=== PATIENT | male | born 1945 | race American Indian/Alaskan Native ===

== ENCOUNTER 2018-03-09 06:26 | Emergency (ER) | payer MEDICARE ==
--- NOTE | 2018-03-09 07:02 | Emergency Department Report ---
ED Male HPI - General Chief complaint: Urogenital-Male Stated complaint: UNABLE TO URINATE Time Seen by Provider: 03/09/18 06:55 Source: patient Mode of arrival: Ambulatory Limitations: No Limitations - History of Present Illness Initial comments: Patient is a 72-year-old male that presents emergency room with difficulty urinating. Patient states that he's not been able to urinate for the past 24 hours. Patient states that he had a catheter removed on Tuesday. Patient states the pain is 10. Patient states the pain is in the suprapubic bladder region. Patient states had this before. Patient denies fever and chills. Patient denies nausea vomiting. Patient states he has urologist. Patient states she started taking Flomax. -: Sudden Location: abdomen Radiation: none Severity: severe Severity scale (0 -10): 10 Quality: stabbing Consistency: constant Improves with: urination, rest Worsens with: palpation indwelling catheter urinary retention. denies: discharge, swelling, mass, rash, blood in urine, dysuria, fever, nausea/vomiting, incontinence - Related Data Home Medications Medication Instructions Recorded Confirmed Last Taken Lipitor 10 mg PO QDAY 05/14/14 02/07/18 05/14/14 06:00 Previous Rx's Medication Instructions Recorded Last Taken Type Tamsulosin [Flomax] 0.8 mg PO QDAY #60 cap 06/21/14 Unknown Rx amLODIPine [Norvasc] 10 mg PO QDAY #30 tablet 06/21/14 02/06/17 Rx Acetaminophen [Acetaminophen TAB] 650 mg PO Q4H PRN #15 tablet 02/08/18 Unknown Rx Ciprofloxacin HCl [Ciprofloxacin 500 mg PO BID #10 tab 02/08/18 Unknown Rx TAB] Famotidine [Pepcid] 20 mg PO BID #7 tablet 02/08/18 Unknown Rx Sulfamethoxazole/Trimethoprim 1 each PO BID 14 Days #28 tablet 03/09/18 Unknown Rx [Bactrim Ds Tablet] Allergies Allergy/AdvReac Type Severity Reaction Status Date / Time No Known Allergies Allergy Verified 05/14/14 12:19 ED Review of Systems ROS: Stated complaint: UNABLE TO URINATE Other details as noted in HPI Constitutional: denies: chills, fever Eyes: denies: eye pain, eye discharge, vision change ENT: denies: ear pain, throat pain Respiratory: denies: cough, shortness of breath, wheezing Cardiovascular: denies: chest pain, palpitations Endocrine: no symptoms reported Gastrointestinal: denies: abdominal pain, nausea, diarrhea Genitourinary: denies: urgency, dysuria Musculoskeletal: denies: back pain, joint swelling, arthralgia Skin: denies: rash, lesions Neurological: denies: headache, weakness, paresthesias Psychiatric: denies: anxiety, depression Hematological/Lymphatic: denies: easy bleeding, easy bruising ED Past Medical Hx - Past Medical History Previous Medical History?: Yes Hx Hypertension: Yes Hx Heart Attack/AMI: No Hx Liver Disease: No Hx Renal Disease: Yes (ARF resolved) 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) Hx Seizures: No Hx Asthma: No Hx COPD: No Hx HIV: No Additional medical history: BPH - Surgical History Past Surgical History?: Yes Additional Surgical History: subrapubic catheter placement - Family History Family history: no significant - Social History Smoking Status: Never Smoker Substance Use Type: None - Medications Home Medications: Home Medications Medication Instructions Recorded Confirmed Last Taken Type Lipitor 10 mg PO QDAY 05/14/14 02/07/18 05/14/14 06:00 History Tamsulosin [Flomax] 0.8 mg PO QDAY #60 cap 06/21/14 02/07/18 Unknown Rx amLODIPine [Norvasc] 10 mg PO QDAY #30 tablet 06/21/14 02/07/18 02/06/17 Rx Acetaminophen [Acetaminophen TAB] 650 mg PO Q4H PRN #15 tablet 02/08/18 Unknown Rx Ciprofloxacin HCl [Ciprofloxacin 500 mg PO BID #10 tab 02/08/18 Unknown Rx TAB] Famotidine [Pepcid] 20 mg PO BID #7 tablet 02/08/18 Unknown Rx Sulfamethoxazole/Trimethoprim 1 each PO BID 14 Days #28 tablet 03/09/18 Unknown Rx [Bactrim Ds Tablet] ED Physical Exam - General Limitations: No Limitations General appearance: alert, in no apparent distress - Head Head exam: Present: atraumatic, normocephalic - Eye Eye exam: Present: normal appearance - ENT ENT exam: Present: mucous membranes moist - Neck Neck exam: Present: normal inspection - Respiratory Respiratory exam: Present: normal lung sounds bilaterally. Absent: respiratory distress - Cardiovascular Cardiovascular Exam: Present: regular rate, normal rhythm. Absent: systolic murmur, diastolic murmur, rubs, gallop - GI/Abdominal GI/Abdominal exam: Present: soft, tenderness (suprapubic tenderness and palpable bladder), normal bowel sounds - Rectal Rectal exam: Present: deferred - Extremities Exam Extremities exam: Present: normal inspection - Back Exam Back exam: Present: normal inspection - Neurological Exam Neurological exam: Present: alert, oriented X3 - Psychiatric Psychiatric exam: Present: normal affect, normal mood - Skin Skin exam: Present: warm, dry, intact, normal color. Absent: rash ED Course Vital Signs 03/09/18 03/09/18 06:39 09:59 Temperature 98.9 F Pulse Rate 112 H 102 H Respiratory 14 16 Rate Blood Pressure 130/81 Blood Pressure 131/73 [Right] O2 Sat by Pulse 100 100 Oximetry - Reevaluation(s) Reevaluation #1: Patient will have Carballo placed. Initial evaluation done. Findings consistent with urinary retention and a need for indwelling catheter 03/09/18 06:55 Nurses unable to pass a standard Carballo catheter due to enlarged prostate. We will order cystoscopy cart and try to place a smaller cath. The last time this happened the patient required urologic intervention from a urologist. See procedure note for coud placement. 03/09/18 08:25 Draining urine. Patient states his symptoms are improving. 03/09/18 08:55 Skull and all results with patient. Discussed discharge planning. Patient agrees with care and discharged. Patient to be discharged home with discharge instructions. Patient given discharge instructions 03/09/18 09:25 Patient is pain-free. No abdominal distention noted 03/09/18 10:14 Discussed discharge patient. Patient agrees with discharge. Patient was discharged home with Carballo. Patient given discharge instructions.patient given return to ER instructions the patient voiced understanding of instructions. 03/09/18 10:39 - Consultations Consultation #1: Dr. Montana paged 03/09/18 09:22 Dr. Montana paced again 03/09/18 10:14 Discussed case with patient's personal urologist. Dr. Montana states patient is good for discharge and he will have his office call him for an appointment. Dr. montana agrees with leaving Carballo in and antibiotic therapy. 03/09/18 10:38 - Penile Procedure Consent Obtained: verbal consent, written consent, emergent situation Time Out Performed: Yes Indication: other (Carballo placement with a coud) Procedural Sedation: No Sedation/Analgesia: none Complications: none Patient Tolerated Procedure: well Additional Comments: Patient is 72-year-old male presents to emergency room for urinary retention. Patient has enlarged prostate and already sees urologist. Patient recently had a Carballo catheter placed nurse's unable to pass standard Carballo catheter. Cystoscopy cart brought to the room. 12 Macedonian coud placed but catheter for blood clots. Unable to irrigate 12 Macedonian. 12 Macedonian was removed and 14 Macedonian coud past without problem. Urine flow noted. Procedure done under sterile conditions. Patient is catheter was already attached to a drainage bag. Blood noted in urine ED Medical Decision Making - Medical Decision Making She is a 17-year-old male that presents to emergency room for urinary retention and lower abdominal pain. Patient has a long history of BPH and urinary retention and Carballo catheter. Patient had a coud catheter placed. See procedure note. Patient given discharge instructions. Patient instructed to follow up with urologist. Patient to return to ER if condition worsens. Patient given antibiotics for UTI. Discussed treatment plan and discharged with patient's personal urologist. - Differential Diagnosis urinary retention. BPH. Prostatitis. UTI. Critical care attestation.: If time is entered above; I have spent that time in minutes in the direct care of this critically ill patient, excluding procedure time. ED Disposition Clinical Impression: Urinary retention BPH (benign prostatic hypertrophy) Qualifiers: Lower urinary tract symptom presence: symptoms present Lower urinary tract symptom detail: urinary retention Qualified Code(s): N40.1 - Benign prostatic hyperplasia with lower urinary tract symptoms UTI (urinary tract infection) Qualifiers: Urinary tract infection type: acute cystitis Hematuria presence: with hematuria Qualified Code(s): N30.01 - Acute cystitis with hematuria Disposition: TO HOME OR SELFCARE Is pt being admited?: No Does the pt Need Aspirin: No Condition: Stable Instructions: Urinary Retention in Men (ED), Urinary Tract Infection in Men (ED) Additional Instructions: Patient to follow-up with primary care in 2-3 days. Patient to follow up with urologist in 2-3 days. Patient to return to the ER if condition worsens. Patient to keep Carballo in until removed by PCP or urologist. Patient to increase water. Patient to rest. Patient to take meds as directed. Patient to take Tylenol when necessary for pain Prescriptions: Sulfamethoxazole/Trimethoprim [Bactrim Ds Tablet] 1 each PO BID 14 Days #28 tablet Referrals: KELSIE MARQUES MD [Primary Care Provider] - 2-3 Days ELLA MONTANA MD [Staff Physician] - [facility] Time of Disposition: 10:38
[2018-03-09 09:08] LABS: Bacteria,Urine 2+ /HPF (Negative)
[2018-03-09 09:15] LABS: RBC,Urine > 182.0 /HPF (0.0-6.0)
[2018-03-09 09:17] LABS: Bilirubin,Urine NEG (Negative); Blood,Urine LG (Negative); Color,Urine Red (Yellow); Urobilinogen,Urine < 2.0 mg/dL (<2.0)
[2018-03-09] MEDS ORDERED: XYLOCAINE 1% MPF 5 mL INFILTRATI ONE (09:21)
[2018-03-09] MEDS ORDERED: ROCEPHIN IM ONE (09:21)
[2018-03-09 09:59] VITALS: BP 131/73
== END 2018-03-09 11:09 | disposition home or self-care (01) ==
LOC: ED 06:26
DX: N40.1 Benign prostatic hyperplasia with lower urinary tract symptoms (principal); R33.8 Other retention of urine; I10 Essential (primary) hypertension
CPT/HCPCS: 51703; 81001; 96372; 99283; J0696; 51702

== ENCOUNTER 2018-03-10 14:10 | Emergency (ER) | payer MEDICARE ==
--- NOTE | 2018-03-10 14:30 | Emergency Department Report ---
ED Male HPI - General Chief complaint: Urogenital-Male Stated complaint: CATHETER LEAKING Time Seen by Provider: 03/10/18 14:30 Source: patient, family Mode of arrival: Ambulatory Limitations: No Limitations - History of Present Illness Initial comments: This is a 72-year-old male who was here yesterday for urinary obstruction and coud catheter 14 Montserratian was placed. He is not here reporting that catheter is leaking around his urethra area. Denies any pain. Denies any fever or chills and denies any hematuria. Catheter was connected to a leg bag. Patient was enlarged prostate with obstruction and is followed by Dr. Nan Noguera urology Complaint: other (catheter malfunction) Onset/Timin -: days(s) Severity scale (0 -10): 0 other (leaking catheter). denies: discharge, swelling, mass, rash, urinary retention, fever, nausea/vomiting, incontinence - Related Data Sexually active: No Home Medications Medication Instructions Recorded Confirmed Last Taken Lipitor 10 mg PO QDAY 05/14/14 02/07/18 05/14/14 06:00 Previous Rx's Medication Instructions Recorded Last Taken Type Tamsulosin [Flomax] 0.8 mg PO QDAY #60 cap 06/21/14 Unknown Rx amLODIPine [Norvasc] 10 mg PO QDAY #30 tablet 06/21/14 02/06/17 Rx Acetaminophen [Acetaminophen TAB] 650 mg PO Q4H PRN #15 tablet 02/08/18 Unknown Rx Ciprofloxacin HCl [Ciprofloxacin 500 mg PO BID #10 tab 02/08/18 Unknown Rx TAB] Famotidine [Pepcid] 20 mg PO BID #7 tablet 02/08/18 Unknown Rx Sulfamethoxazole/Trimethoprim 1 each PO BID 14 Days #28 tablet 03/09/18 Unknown Rx [Bactrim Ds Tablet] Allergies Allergy/AdvReac Type Severity Reaction Status Date / Time No Known Allergies Allergy Verified 05/14/14 12:19 ED Review of Systems ROS: Stated complaint: CATHETER LEAKING Other details as noted in HPI Constitutional: denies: chills, fever Respiratory: denies: cough, shortness of breath Cardiovascular: denies: chest pain, palpitations Gastrointestinal: denies: abdominal pain, nausea, vomiting, constipation, hematemesis, hematochezia Genitourinary: other (leaking catheter). denies: urgency, dysuria, frequency, hematuria, discharge Musculoskeletal: denies: back pain Skin: denies: rash Neurological: denies: headache ED Past Medical Hx - Past Medical History Previous Medical History?: Yes Hx Hypertension: Yes Hx Heart Attack/AMI: No Hx Liver Disease: No Hx Renal Disease: Yes (ARF resolved) 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) Hx Seizures: No Hx Asthma: No Hx COPD: No Hx HIV: No Additional medical history: BPH - Surgical History Past Surgical History?: Yes Additional Surgical History: subrapubic catheter placement - Social History Smoking Status: Never Smoker Substance Use Type: None - Medications Home Medications: Home Medications Medication Instructions Recorded Confirmed Last Taken Type Lipitor 10 mg PO QDAY 05/14/14 02/07/18 05/14/14 06:00 History Tamsulosin [Flomax] 0.8 mg PO QDAY #60 cap 06/21/14 02/07/18 Unknown Rx amLODIPine [Norvasc] 10 mg PO QDAY #30 tablet 06/21/14 02/07/18 02/06/17 Rx Acetaminophen [Acetaminophen TAB] 650 mg PO Q4H PRN #15 tablet 02/08/18 Unknown Rx Ciprofloxacin HCl [Ciprofloxacin 500 mg PO BID #10 tab 02/08/18 Unknown Rx TAB] Famotidine [Pepcid] 20 mg PO BID #7 tablet 02/08/18 Unknown Rx Sulfamethoxazole/Trimethoprim 1 each PO BID 14 Days #28 tablet 03/09/18 Unknown Rx [Bactrim Ds Tablet] ED Physical Exam - General Limitations: No Limitations General appearance: alert, in no apparent distress - Eye Eye exam: Present: normal appearance - ENT ENT exam: Present: normal exam - Neck Neck exam: Present: normal inspection - Respiratory Respiratory exam: Present: normal lung sounds bilaterally. Absent: respiratory distress, chest wall tenderness - Cardiovascular Cardiovascular Exam: Present: regular rate, normal rhythm, normal heart sounds - GI/Abdominal GI/Abdominal exam: Present: soft, normal bowel sounds. Absent: distended, tenderness, guarding, rebound, rigid, organomegaly, mass - exam: Present: normal inspection, other (catheter leak from the urethra). Absent: testicular tenderness, urethral discharge, scrotal swelling, vertical testicular lie, circumcision - Extremities Exam Extremities exam: Present: full ROM - Neurological Exam Neurological exam: Present: alert, oriented X3, normal gait - Psychiatric Psychiatric exam: Present: normal affect, normal mood - Skin Skin exam: Present: warm, dry, intact, normal color. Absent: rash ED Course Vital Signs 03/10/18 03/10/18 14:19 14:20 Temperature 99.6 F Pulse Rate 103 H Respiratory 16 Rate Blood Pressure 153/54 [Right] O2 Sat by Pulse 98 Oximetry - Reevaluation(s) Reevaluation #1: 03/10/18 14:56 Extracted 6 mL of liquid for current catheter. 10 mL instilled catheter is called for. Patient stable tolerated procedure well. ED Medical Decision Making - Medical Decision Making This is a 72-year-old male here for catheter malfunction. Carballo catheter repositioned in instill 10 mL of fluid and site after 6 mL of 0. Patient tolerated well and to follow-up with Dr. Montana at [facility] in 3-5 days. Critical care attestation.: If time is entered above; I have spent that time in minutes in the direct care of this critically ill patient, excluding procedure time. ED Disposition Clinical Impression: Encounter for Carbalol catheter fitting and adjustment Disposition: DC-01 TO HOME OR SELFCARE Is pt being admited?: No Does the pt Need Aspirin: No Condition: Stable Instructions: Carballo Catheter Placement and Care (ED), Urinary Leg Bag (GEN) Additional Instructions: Please follow up with Dr. Nan Noguera urology in 3-5 days Referrals: ELLA MONTANA MD [Staff Physician] - 3-5 Days
== END 2018-03-10 14:52 | disposition home or self-care (01) ==
LOC: ED 14:10
CPT/HCPCS: 99282

== ENCOUNTER 2018-03-11 15:53 | Emergency (ER) | payer MEDICARE ==
--- NOTE | 2018-03-11 16:45 | Emergency Department Report ---
ED Male HPI - General Chief complaint: Urogenital-Male Stated complaint: CATHETER LEAKING Time Seen by Provider: 03/11/18 16:35 Source: patient Mode of arrival: Ambulatory Limitations: No Limitations - History of Present Illness Initial comments: is a 72-year-old male that presents to the emergency room for leakage around his urinary catheter. Patient was seen yesterday and had a Coude 14- gauge placed. Patient states is not having any pain. Patient states he is draining well. Patient states is just leaking around the catheter from the head of his penis. Patient denies fever chills. Patient denies abdominal pain. Patient denies discharge. Patient denies bleeding. Patient states he had blood in his urine initially after the original catheter was placed but sent then he has not had any more hematuria. Patient is currently taking antibiotics. Patient is currently taking Bactrim DS twice a day. Patient is adherent to his medication regimen. -: Sudden Radiation: none Severity scale (0 -10): 0 Consistency: other Improves with: none Worsens with: none denies other symptoms. denies: discharge, swelling, mass, rash, urinary retention, blood in urine, dysuria, fever, nausea/vomiting, incontinence - Related Data Home Medications Medication Instructions Recorded Confirmed Last Taken Lipitor 10 mg PO QDAY 05/14/14 02/07/18 05/14/14 06:00 Previous Rx's Medication Instructions Recorded Last Taken Type Tamsulosin [Flomax] 0.8 mg PO QDAY #60 cap 06/21/14 Unknown Rx amLODIPine [Norvasc] 10 mg PO QDAY #30 tablet 06/21/14 02/06/17 Rx Acetaminophen [Acetaminophen TAB] 650 mg PO Q4H PRN #15 tablet 02/08/18 Unknown Rx Ciprofloxacin HCl [Ciprofloxacin 500 mg PO BID #10 tab 02/08/18 Unknown Rx TAB] Famotidine [Pepcid] 20 mg PO BID #7 tablet 02/08/18 Unknown Rx Sulfamethoxazole/Trimethoprim 1 each PO BID 14 Days #28 tablet 03/09/18 Unknown Rx [Bactrim Ds Tablet] Allergies Allergy/AdvReac Type Severity Reaction Status Date / Time No Known Allergies Allergy Verified 03/11/18 15:57 ED Review of Systems ROS: Stated complaint: CATHETER LEAKING Other details as noted in HPI Constitutional: denies: chills, fever Eyes: denies: eye pain, eye discharge, vision change ENT: denies: ear pain, throat pain Respiratory: denies: cough, shortness of breath, wheezing Cardiovascular: denies: chest pain, palpitations Endocrine: no symptoms reported Gastrointestinal: denies: abdominal pain, nausea, diarrhea Genitourinary: denies: urgency, dysuria Musculoskeletal: denies: back pain, joint swelling, arthralgia Skin: denies: rash, lesions Neurological: denies: headache, weakness, paresthesias Psychiatric: denies: anxiety, depression Hematological/Lymphatic: denies: easy bleeding, easy bruising ED Past Medical Hx - Past Medical History Previous Medical History?: Yes Hx Hypertension: Yes Hx Heart Attack/AMI: No Hx Liver Disease: No Hx Renal Disease: Yes (ARF resolved) 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) Hx Seizures: No Hx Asthma: No Hx COPD: No Hx HIV: No Additional medical history: BPH - Surgical History Past Surgical History?: Yes Additional Surgical History: subrapubic catheter placement - Family History Family history: no significant - Social History Smoking Status: Never Smoker Substance Use Type: None - Medications Home Medications: Home Medications Medication Instructions Recorded Confirmed Last Taken Type Lipitor 10 mg PO QDAY 05/14/14 02/07/18 05/14/14 06:00 History Tamsulosin [Flomax] 0.8 mg PO QDAY #60 cap 06/21/14 02/07/18 Unknown Rx amLODIPine [Norvasc] 10 mg PO QDAY #30 tablet 06/21/14 02/07/18 02/06/17 Rx Acetaminophen [Acetaminophen TAB] 650 mg PO Q4H PRN #15 tablet 02/08/18 Unknown Rx Ciprofloxacin HCl [Ciprofloxacin 500 mg PO BID #10 tab 02/08/18 Unknown Rx TAB] Famotidine [Pepcid] 20 mg PO BID #7 tablet 02/08/18 Unknown Rx Sulfamethoxazole/Trimethoprim 1 each PO BID 14 Days #28 tablet 03/09/18 Unknown Rx [Bactrim Ds Tablet] ED Physical Exam - General Limitations: No Limitations General appearance: alert, in no apparent distress - Head Head exam: Present: atraumatic, normocephalic - Eye Eye exam: Present: normal appearance - ENT ENT exam: Present: mucous membranes moist - Neck Neck exam: Present: normal inspection - Respiratory Respiratory exam: Present: normal lung sounds bilaterally. Absent: respiratory distress - Cardiovascular Cardiovascular Exam: Present: regular rate, normal rhythm. Absent: systolic murmur, diastolic murmur, rubs, gallop - GI/Abdominal GI/Abdominal exam: Present: soft, normal bowel sounds. Absent: distended, tenderness, guarding - Rectal Rectal exam: Present: deferred - exam: Present: normal inspection, circumcision, other (leakage noted around catheter). Absent: testicular tenderness, urethral discharge, scrotal swelling - Extremities Exam Extremities exam: Present: normal inspection - Back Exam Back exam: Present: normal inspection - Neurological Exam Neurological exam: Present: alert, oriented X3 - Psychiatric Psychiatric exam: Present: normal affect, normal mood - Skin Skin exam: Present: warm, dry, intact, normal color. Absent: rash ED Course Vital Signs 03/11/18 03/11/18 03/11/18 15:57 17:38 17:39 Temperature 98.7 F 98.6 F Pulse Rate 102 H 84 Respiratory 16 16 16 Rate Blood Pressure 152/93 Blood Pressure 139/71 [Left] O2 Sat by Pulse 99 100 100 Oximetry - Reevaluation(s) Reevaluation #1: Catheter changed. 14 Fijian coud removed. Leakage was noted around the catheter. 18 Fijian catheter placed. See procedure note 03/11/18 16:30 Discussed all discharge instruction patient. Patient still to follow with urologist as soon as possible. Patient states he has a appointment on Tuesday with Dr. [place]. Patient to continue all medications. Patient voiced understanding of all discharge medication instructions. 03/11/18 17:14 - Catheter Insertion (Urinary) Indications: replaced: fell out/removed/no longer functioning, other ( leaking around catheter) Prophylactic Antibiotics Given: No Bladder Scan/US before Catherization: No Preparation: Providone-Iodine Type of Catheter Inserted: 2 way Catheter Balloon Size (mls): 10 Topical Anesthesia Used: No Results: successfully catherized-immediate flow Patient Tolerated Procedure: well Complications: none Additional Comments: 14 Fijian coud removed. 18 Fijian catheter placed without problems. Catheterization exchange was unremarkable and an uncomplicated. Good urine flow noted. ED Medical Decision Making - Medical Decision Making Patient's 72-year-old male presents emergency room with leaking catheter. Catheter exchange done. Patient be discharged home. Patient will continue all previous discharge instructions and new discharge instructions. Patient will continue antibiotics. Patient still to follow up with urologist on Tuesday. - Differential Diagnosis leaking catheter. Critical care attestation.: If time is entered above; I have spent that time in minutes in the direct care of this critically ill patient, excluding procedure time. ED Disposition Clinical Impression: Urinary retention Leakage from urinary catheter Qualifiers: Encounter type: initial encounter Qualified Code(s): T83.038A - Leakage of other urinary catheter, initial encounter Disposition: TO HOME OR SELFCARE Is pt being admited?: No Does the pt Need Aspirin: No Condition: Stable Instructions: Carballo Catheter Placement and Care (ED), Urinary Leg Bag (GEN) Additional Instructions: Patient to follow up with primary care in 2-3 days. Patient to follow-up with urologist in 2 days. Patient to return to ER if condition worsens. Patient to continue all antibiotics and other medications. Patient increase water. Patient to rest. Time of Disposition: 17:13
== END 2018-03-11 18:05 | disposition home or self-care (01) ==
LOC: ED 15:53
CPT/HCPCS: 51702

== ENCOUNTER 2018-03-27 05:54 | Observation (INO) | payer MEDICARE ==
[2018-03-24 13:38] LABS: Basophils # (Auto) 0.1 K/mm3 (0.0-0.1); Basophils % (Auto) 1.6 % (0.0-1.8); Eosinophils # (Auto) 0.2 K/mm3 (0.0-0.4); Eosinophils % (Auto) 1.9 % (0.0-4.3); Hematocrit 45.9 % (35.5-45.6); Hemoglobin 14.9 gm/dl (11.8-15.2); Lymphocytes # (Auto) 2.5 K/mm3 (1.2-5.4); Lymphocytes % (Auto) 29.9 % (13.4-35.0); Mean Corpuscular HGB Conc 33 % (32-34); Mean Corpuscular Volume 71 fl (84-94); Monocytes # (Auto) 0.4 K/mm3 (0.0-0.8); Monocytes % (Auto) 5.1 % (0.0-7.3); Platelet Count 281 K/mm3 (140-440); Red Blood Count 6.45 M/mm3 (3.65-5.03)
[2018-03-24 13:59] LABS: Alanine Aminotransferase 20 units/L (7-56); Albumin 4.5 g/dL (3.9-5); BUN/Creatinine Ratio 17; Blood Urea Nitrogen 10 mg/dL (9-20); Calcium 9.3 mg/dL (8.4-10.2); Hemolysis Index 26
--- NOTE | 2018-03-24 18:06 | Anesthesia Consultation ---
Anesthesia Consult and Med Hx Date of service: 03/24/18 - Airway Anesthetic Teeth Evaluation: Poor ROM Head & Neck: Adequate Mental/Hyoid Distance: Adequate Mallampati Class: Class II Intubation Access Assessment: Probably Good - Pulmonary Exam CTA: Yes - Cardiac Exam Cardiac Exam: RRR - Pre-Operative Health Status ASA Pre-Surgery Classification: ASA3 Proposed Anesthetic Plan: General - Pulmonary Hx Smoking: Yes (quit smoking 1979) Hx Asthma: No Hx Respiratory Symptoms: No COPD: No Hx Sleep Apnea: No (MARIOLA PRE SCREEN HIGH RISK) - Cardiovascular System Hx Hypertension: Yes Hx Heart Attack/AMI: No Hx Percutaneous Transluminal Coronary Angioplasty (PTCA): No Hx Cardia Arrhythmia: No - Central Nervous System Hx Seizures: No CVA: No - Gastrointestinal Hx Gastroesophageal Reflux Disease: No - Endocrine Hx Renal Disease: No Hx Liver Disease: No Hx Insulin Dependent Diabetes: No Hx Non-Insulin Dependent Diabetes: No Hx Thyroid Disease: No - Hematic Hx Anemia: Yes - Other Systems Hx Obesity: No - Additional Comments Anesthesia Medical History Comments: Hx DVT/PE on xarelto. Patient to hold x48hrs per cardiology note (last dose 03/24/18). Normal ST results on chart. No hx anesthetic complications.
[~2018-03-27 05:54] MED LIST: LACTATED RINGERS 1,000 ML IV SCH
[2018-03-27] MEDS ORDERED: ANCEF/STERILE WATER 2 GM/20 ML IV NR (06:00)
[2018-03-27 06:50] LABS: INR 1.05 (0.87-1.13); Partial Thromboplastin Time 22.8 Sec. (24.2-36.6)
[2018-03-27] MEDS ORDERED: DIPRIVAN 10 MG/ML IV ONE (07:51)
[2018-03-27] MEDS ORDERED: SUBLIMAZE ONE (07:51)
[2018-03-27] MEDS ORDERED: XYLOCAINE MPF 2% ONE (07:52)
[2018-03-27] MEDS ORDERED: NEO SYNEPHRINE/NS Syringe(OR USE) IV ONE (08:18)
[2018-03-27] MEDS ORDERED: NACL 0.9% IR ONE (08:49)
[2018-03-27] MEDS ORDERED: NARCAN 0.4 MG/1 ML IV PRN (09:44)
[2018-03-27] MEDS ORDERED: MORPHINE IV PRN (09:44)
--- NOTE | 2018-03-27 09:44 | Short Stay Summary ---
Short Stay Documentation Date of service: 03/27/18 - History H&P: obtained from office - Allergies and Medications Current Medications: Allergies No Known Allergies Allergy (Verified 03/11/18 15:57) Home Medications Medication Instructions Recorded Confirmed Last Taken Type Lipitor 10 mg PO QDAY 05/14/14 03/27/18 03/26/18 09:00 History Tamsulosin [Flomax] 0.8 mg PO QDAY #60 cap 06/21/14 03/27/18 03/26/18 09:00 Rx amLODIPine [Norvasc] 10 mg PO QDAY #30 tablet 06/21/14 03/27/18 03/27/18 05:00 Rx Acetaminophen [Acetaminophen TAB] 650 mg PO Q4H PRN #15 tablet 02/08/18 03/20/18 Unknown Rx Rivaroxaban [Xarelto] 10 mg PO QDAY 03/20/18 03/27/18 03/24/18 09:00 History Active Medications Cefazolin Sodium (Ancef/Sterile Water 2 Gm/20 Ml) 2 gm IV PREOP NR Stop: 03/27/18 23:59 Lactated Ringer's (Lactated Ringers) 1,000 mls @ 100 mls/hr IV DIRECT NICKOLAS Last Admin: 03/27/18 06:55 Dose: 100 mls/hr Documented by: - Brief post op/procedure progress note Date of procedure: 03/27/18 Pre-op diagnosis: BPH, RETENTION Procedure: CYSTO, CYSTGRAM, TURP Anesthesia: GETA Surgeon: ELLA STOCK Estimated blood loss: 50-100ml Pathology: list (PROSTATE CHIPS) Specimen disposition: to lab Condition: stable - Hospital course Hospital course: CIPRO & NORCO ON CHART pt feels fine wolf pink tinged----NO CLOTS discussed with Dr. Skinner, pt does NOT have more facial drooping (Dragon typo) ok to dc home - Disposition Condition at discharge: Stable Short Stay Discharge Plan Follow up with: MARIANA LINDER MD [Primary Care Provider] - 7 Days
[2018-03-27] MEDS ORDERED: TYLENOL PO PRN (10:00)
[2018-03-27] MEDS ORDERED: ZOFRAN IV PRN (10:30)
[2018-03-27] MEDS ORDERED: NORCO 5/325 PO PRN (11:00)
--- NOTE | 2018-03-27 11:05 | Fluoroscopy Report ---
FLUOROSCOPY CYSTOGRAM STATIC History: BPH, urinary retention. Findings: Fluoroscopy was provided by radiology during cystogram by the urologist. 3 fluoroscopic images were captured. Please correlate with procedural report.
--- NOTE | 2018-03-27 11:11 | Operative Report ---
PREOPERATIVE DIAGNOSES: Urinary retention, benign prostatic hypertrophy. POSTOPERATIVE DIAGNOSES: Urinary retention, benign prostatic hypertrophy. PROCEDURES: Cystoscopy, transurethral resection of the prostate, cystogram. SURGEON: [place] MD ANESTHESIA: General. ESTIMATED BLOOD LOSS: Minimal. FLUIDS: Crystalloid. COMPLICATIONS: No complications. INDICATIONS: This patient is a 72-year-old gentleman known to our service, history of BPH, had a TURP years ago, has done well; however, recently went into urinary retention despite medical management. He presents now for repeat TURP, has a history of hyperlipidemia, hypertension, pulmonary embolus, on Xarelto. He was cleared to come off his Xarelto by Dr. Tony Portillo, his primary care. DESCRIPTION OF PROCEDURE: The patient was taken to the operative suite, placed in a supine position. After adequate general anesthesia, placed in a dorsal lithotomy position, prepped and draped in a sterile fashion. Pancystourethroscopy was performed with a 24-Gibraltarian Storz cystoscope, no urethral abnormalities. His prostate displayed obvious trilobar obstruction moderately. Bladder, no tumors or stones. He did have diffuse trabeculation, could not appreciate the ureteral orifices due to a significant median lobe. Using a 24-Gibraltarian continuous flow monopolar scope, transurethral resection of the prostate was performed taking down the median lobe and the right and left lateral lobes respectively. They were irrigated out with the Ellik evacuator. Adequate hemostasis was achieved. Carballo catheter was placed. Cystogram was performed. No extravasation. Irrigated well, no clots. His rectal exam was benign. He was extubated and taken to recovery room in stable condition. He will be observed overnight and go home on Bactrim and [place]. JOB# [id number] C/NTS
[2018-03-27] MEDS ORDERED: ANCEF/NS 1 GM/50 ML 1 GM/50 ML BAG IV SCH (16:00)
--- NOTE | 2018-03-27 17:14 | Consultation ---
History of Present Illness - Reason for Consult Consult date: 03/27/18 medical management of PE, HTN, HLD status post TURP Requesting physician: ELLA STOCK - History of Present Illness Patient is a 73-year-old gentleman who was a history of prior Pulm embolism (on Xeralto), hypertension and hyperlipidemia who has BPH and went into urinary retention in 2016. Had TURP at the time. Had another episode of urinary retention. Was seen by the urologist at in his office. Scheduled for TURP which he had today 03/27/18. [facility] medicine was consulted to assist in the management of his medical problems. Patient denies any chest pain or shortness of breath. Has expected blood tinged urine following his TURP. Past History Past Medical History: hypertension, hyperlipidemia, other (urinary retention) Medications and Allergies Allergies Allergy/AdvReac Type Severity Reaction Status Date / Time No Known Allergies Allergy Verified 03/11/18 15:57 Home Medications Medication Instructions Recorded Confirmed Last Taken Type Lipitor 10 mg PO QDAY 05/14/14 03/27/18 03/26/18 09:00 History Tamsulosin [Flomax] 0.8 mg PO QDAY #60 cap 06/21/14 03/27/18 03/26/18 09:00 Rx amLODIPine [Norvasc] 10 mg PO QDAY #30 tablet 06/21/14 03/27/18 03/27/18 05:00 Rx Acetaminophen [Acetaminophen TAB] 650 mg PO Q4H PRN #15 tablet 02/08/18 03/20/18 Unknown Rx Rivaroxaban [Xarelto] 10 mg PO QDAY 03/20/18 03/27/18 03/24/18 09:00 History Active Meds: Active Medications Acetaminophen (Tylenol) 650 mg PO Q4H PRN PRN Reason: Pain MILD(1-3)/Fever >100.5/KAPLAN Acetaminophen/Hydrocodone Bitart ([place] 5/325) 2 each PO Q4H PRN PRN Reason: Pain, Moderate (4-6) Amlodipine Besylate (Norvasc) 10 mg PO QDAY NICKOLAS Atorvastatin Calcium (Lipitor) 10 mg PO QHS NICKOLAS Cefazolin Sodium (Ancef/Sterile Water 2 Gm/20 Ml) 2 gm IV PREOP NR Stop: 03/27/18 23:59 Lactated Ringer's (Lactated Ringers) 1,000 mls @ 100 mls/hr IV DIRECT NICKOLAS Last Admin: 03/27/18 06:55 Dose: 100 mls/hr Documented by: Cefazolin Sodium (Ancef/Ns 1 Gm/50 Ml) 1 gm in 50 mls @ 100 mls/hr IV Q8H NICKOLAS; Protocol Stop: 03/28/18 00:29 Potassium Chloride/Dextrose/Sod Cl (D5w/0.45% Nacl/Kcl 20 Meq) 20 meq in 1,000 mls @ 100 mls/hr IV DIRECT NICKOLAS Morphine Sulfate (Morphine) 4 mg IV Q4H PRN PRN Reason: Pain , Severe (7-10) Naloxone HCl (Narcan 0.4 Mg/1 Ml) 0.1 mg IV Q2MIN PRN PRN Reason: Res Rate </= 8 or 02 SAT < 92% Ondansetron HCl (Zofran) 4 mg IV Q8H PRN PRN Reason: Nausea And Vomiting Sodium Chloride (Nacl 0.9%) 2,000 ml IR DIRECT NICKOLAS Tamsulosin HCl (Flomax) 0.8 mg PO QDAY NICKOLAS Zolpidem Tartrate (Ambien) 5 mg PO QHS PRN PRN Reason: Sleep Review of systems Constitutional: Well Nouridhed and Well developed. Head: NC/ AT Eyes: Denies any visual impairments. No discharge from the eyes Nose: Denies any rhinorrhea or epistaxis Throats: Denies any post nasal drainage. Ears: Denies any hearing deficits Cardiovascular system: Denies any chest pain, shortness of breath, orthopnea, paroxysmal nocturnal dyspnea, or palpitation. Respiratory system: Denies any cough, difficulty breathing, wheezing, pleuritic chest pain, Gastrointestinal system: Denies any abdominal pain, nausea vomiting, hematemesis or melena. Neurological system: Denies any headache, slurred speech, facial droop, lateralizing weakness Genitalia system: Has a Carballo's catheter in place with drainage of slightly b lood-tinged tinged urine as expected following TURP Skin: No rashes, hyperpigmented spots. Hematological: Denies any cervical tenderness hemorrhages or petechia. Immunological: Denies any multiple septic spots, Lymphatic: Denies any generalized lymphadenopathy. Endocrine: Denies any polyuria, polydipsia, polyphagia. No heat or cold intolerance. Musculoskeletal system: No joint pain or swelling. 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 A left oriented and able to feed himself. In no distress Head: Normocephalic atraumatic Eyes: Pupils are equal round and reactive to light Nose: No enlarged turbinates, no septal deviation. Mouth: Moist mucous membranes. Neck: Supple no thyromegaly. No bruit. No JVD Heart: Regular rate and rhythm, S1-S2 normal. No rubs murmurs or gallop Lungs: Clear to auscultation bilaterally. no rales or rhonchi Abdomen: Soft, nontender. Bowel sound are present. Extremities: No edema, no cyanosis, no clubbing. Neuro: Alert oriented Oriented x3. No focal sensory or motor deficit. Genitourinary system: Has a Carballo catheter in place with drainage of blood- tinged urine. Skin: No rashes or hyperpigmented spots Musculoskeletal system: No joint pain or swelling Hematological: No petechia or subcutanous hemorrhages. Immunological: No multiple septic spots on the skin Lymphatic: No generalized lymphadenopathy Psychiatry: Euthymic. Calm. - Constitutional Vitals: Temp Pulse Resp BP Pulse Ox 97.8 F 74 12 131/76 99 03/27/18 11:27 03/27/18 11:27 03/27/18 11:27 03/27/18 11:27 03/27/18 11:27 Results - Labs CBC & Chem 7: 03/28/18 06:31 03/28/18 06:31 Labs: Abnormal lab results 03/27/18 Range/Units 06:33 APTT 22.8 L (24.2-36.6) Sec. Assessment and Plan Patient is a 73-year-old gentleman who has a history of Pulm embolism on Xeralto, hypertension and hyperlipidemia who has BPH and TURP for urinary retention in 2016. Was seen by the urologist in his office after patient had gone into another urinary retention. Scheduled for TURP which he had today 03/27/18. Hospital Medicine was consulted to assist in the management of his medical problems. Patient denies any chest pain or shortness of breath. Has Carballo with a Ontiveros drip drip on following his TURP. Still have blood drainage. - History of pulmonary embolism on Xeralto that was discontinued because of TURP. Recommended commencing the same after adequate hemeostasis hopefully in 24-36 hrs post op. - Hypertension Continue with home oral antihypertensive medication - Hyperlipidemia Continuing home medications Consult will continue to follow the patient up.
[2018-03-27] MEDS: D5W/0.45% NACL/KCL 20 MEQ 20 MEQ/1,000 ML BAG IV SCH (17:30)
[2018-03-27] MEDS: NORVASC PO SCH (17:30)
[2018-03-27] MEDS: FLOMAX PO SCH (17:31)
[2018-03-27] MEDS: NACL 0.9% IR SCH ×3 (17:34→17:40)
[2018-03-27] MEDS ORDERED: AMBIEN PO PRN (22:00)
[2018-03-27] MEDS: ANCEF/NS 1 GM/50 ML 1 GM/50 ML BAG IV SCH (23:05)
[2018-03-28] MEDS: D5W/0.45% NACL/KCL 20 MEQ 20 MEQ/1,000 ML BAG IV SCH (03:19)
[2018-03-28] MEDS: ANCEF/NS 1 GM/50 ML 1 GM/50 ML BAG IV SCH (05:29)
[2018-03-28 08:25] LABS: Basophils % (Auto) 0.5 % (0.0-1.8); Eosinophils # (Auto) 0.3 K/mm3 (0.0-0.4); Eosinophils % (Auto) 3.2 % (0.0-4.3); Hematocrit 40.3 % (35.5-45.6); Hemoglobin 12.9 gm/dl (11.8-15.2); Lymphocytes # (Auto) 1.8 K/mm3 (1.2-5.4); Lymphocytes % (Auto) 18.8 % (13.4-35.0); Mean Corpuscular HGB Conc 32 % (32-34); Mean Corpuscular Volume 72 fl (84-94); Monocytes # (Auto) 0.9 K/mm3 (0.0-0.8); Monocytes % (Auto) 9.7 % (0.0-7.3); Platelet Count 220 K/mm3 (140-440); Red Blood Count 5.62 M/mm3 (3.65-5.03); Red Cell Distribution Width 15.2 % (13.2-15.2)
[2018-03-28] MEDS: NACL 0.9% IR SCH (08:30)
[2018-03-28 08:45] LABS: BUN/Creatinine Ratio 10; Blood Urea Nitrogen 6 mg/dL (9-20); Calcium 8.4 mg/dL (8.4-10.2); Hemolysis Index 17
[2018-03-28] MEDS: NORVASC PO SCH (09:19)
[2018-03-28 09:20] VITALS: BP 123/61
[2018-03-28] MEDS: FLOMAX PO SCH (09:20)
== END 2018-03-28 12:00 | disposition home or self-care (01) ==
LOC: OR 05:54 → 3B-SURG 09:44
PROVIDERS: ADMIT Urology; ATTEND Urology
DX: N40.1 Benign prostatic hyperplasia with lower urinary tract symptoms (principal); I10 Essential (primary) hypertension; R33.9 Retention of urine, unspecified
CPT/HCPCS: 36415; 52601; 74430; 80048; 80053; 85025; 85610; 85730; 86850; 86900; 86901; 88305; 96365; 96366; A4217; A9270; G0378; J0690; J2370; J2704; J3010; J7120; Q9967

== ENCOUNTER 2018-12-26 10:40 | Emergency (ER) | payer MEDICARE ==
--- NOTE | 2018-12-26 11:42 | Cat Scan Report ---
CT head without contrast HISTORY: fall with LOC. TECHNIQUE: Axial imaging performed from the skull apex through the skull base without the use of con trast. All CT scans at this location are performed using CT dose reduction for ALARA by means of aut omated exposure control. COMPARISON: CT head from 05/25/2014 FINDINGS: Parenchyma: No acute intracranial hemorrhage or parenchymal abnormality. Ventricles: There is mild diffuse brain atrophy with commensurate ventricular enlargement which is l ikely age appropriate. Soft tissues: Soft tissues including the orbits appear normal. Left orbital prosthesis again noted. Bones: No acute osseous abnormality. Sinuses: Sinuses and mastoid air cells are clear. IMPRESSION: No acute abnormality. Signer Name: Stanley Castellanos MD Signed: 12/26/2018 11:38 AM Workstation Name: [id number]
--- NOTE | 2018-12-26 11:57 | Emergency Department Report ---
HPI - General Chief Complaint: Syncope Time Seen by Provider: 12/26/18 11:31 - HPI HPI: Room 24 The patient is a 73-year-old male presented with a chief complaint of syncope and left hand pain. The patient states 12/21/2018 he had a syncopal episode. The patient states he was standing at the time and then awakened but others were helping him into the car. Patient denied having palpitations, chest pain, shortness of breath dizziness or headache prior to the syncopal episode. Patient denied any preceding symptoms when he had a syncopal episode. The patient did not go to the hospital for evaluation. The patient states last night he developed pain and swelling of his left hand. This prompted the patient come to the emergency department today for evaluation Location: [See above] Duration: [See above] Quality: [See above] Severity: [See above] Timing: [See above] Context: [See above] Modifying factors: [See above] Associated signs and symptoms: [see above] ED Past Medical Hx - Past Medical History Previous Medical History?: Yes Hx Hypertension: Yes Hx CVA: Yes Hx Pulmonary Embolism: Yes (ON XARELTO) Additional medical history: BPH - Surgical History Past Surgical History?: Yes Additional Surgical History: subrapubic catheter placement, prosthetic eye (left) - Family History Family history: no significant - Social History Smoking Status: Former Smoker (none 20 years) Substance Use Type: Alcohol (extremely rarely) - Medications Home Medications: Home Medications Medication Instructions Recorded Confirmed Last Taken Type Lipitor 10 mg PO QDAY 05/14/14 03/27/18 03/26/18 09:00 History Tamsulosin [Flomax] 0.8 mg PO QDAY #60 cap 06/21/14 03/27/18 03/26/18 09:00 Rx amLODIPine 10 mg PO QDAY #30 tablet 06/21/14 03/27/18 03/27/18 05:00 Rx Acetaminophen [Acetaminophen TAB] 650 mg PO Q4H PRN #15 tablet 02/08/18 03/20/18 Unknown Rx Rivaroxaban [Xarelto] 10 mg PO QDAY 03/20/18 03/27/18 03/24/18 09:00 History ED Review of Systems ROS: Stated complaint: LFT HAND SWELLING/PAIN Other details as noted in HPI Constitutional: no symptoms reported Eyes: denies: eye pain ENT: denies: throat pain Respiratory: no symptoms reported Cardiovascular: denies: chest pain, palpitations Endocrine: no symptoms reported Gastrointestinal: denies: abdominal pain Genitourinary: denies: dysuria Musculoskeletal: arthralgia Neurological: denies: headache Physical Exam - Physical Exam Vital Signs: Vital Signs 12/26/18 10:46 Temperature 98.4 F Pulse Rate 99 H Respiratory 18 Rate Blood Pressure 140/79 O2 Sat by Pulse 100 Oximetry Physical Exam: GENERAL: The patient is well-developed well-nourished male lying on stretcher not appearing to be in acute distress. [] HEENT: Normocephalic. Atraumatic. Extraocular motions are intact. Patient has moist mucous membranes. NECK: Supple. Trachea midline CHEST/LUNGS: Clear to auscultation. There is no respiratory distress noted. HEART/CARDIOVASCULAR: Regular. There is no tachycardia. There is no gallop rub or murmur. ABDOMEN: Abdomen is soft, nontender. Patient has normal bowel sounds. There is no abdominal distention. SKIN: There is no rash. There is swelling of the left hand. There is no diaphoresis. NEURO: The patient is awake, alert, and oriented. The patient is cooperative. The patient has no focal neurologic deficits. The patient has normal speech and gait. MUSCULOSKELETAL: There is tenderness to palpation of the metacarpals and phalanges of the left hand/index finger and middle finger. There is tenderness to palpation to the base of the left thumb. The patient does not have dexterity with either hand stasis been present for over 20 years. ED Course Vital Signs 12/26/18 10:46 Temperature 98.4 F Pulse Rate 99 H Respiratory 18 Rate Blood Pressure 140/79 O2 Sat by Pulse 100 Oximetry ED Medical Decision Making - Lab Data Result diagrams: 12/26/18 12:29 Laboratory Tests 12/26/18 12/26/18 12/26/18 12:29 12:29 12:29 WBC 9.5 RBC 6.90 H Hgb 15.7 H Hct 48.1 H MCV 70 L MCH 23 L MCHC 33 RDW 15.3 H Plt Count 239 Lymph % (Auto) 20.0 [place] % (Auto) 6.9 Eos % (Auto) 0.6 Baso % (Auto) 0.7 Lymph # 1.9 [place] # 0.7 Eos # 0.1 Baso # 0.1 Seg Neutrophils % 71.8 H Seg Neutrophils # 6.8 PT 14.6 INR 1.15 H Sodium Potassium Chloride Carbon Dioxide Anion Gap BUN Creatinine Estimated GFR BUN/Creatinine Ratio Glucose Calcium Total Creatine Kinase 290 H CK-MB (CK-2) 4.6 H CK-MB (CK-2) Rel Index 1.5 Troponin T 0.013 12/26/18 12:29 WBC RBC Hgb Hct MCV MCH MCHC RDW Plt Count Lymph % (Auto) [place] % (Auto) Eos % (Auto) Baso % (Auto) Lymph # [place] # Eos # Baso # Seg Neutrophils % Seg Neutrophils # PT INR Sodium 139 Potassium 3.6 Chloride 103.9 Carbon Dioxide 19 L Anion Gap 20 BUN 9 Creatinine 0.5 L Estimated GFR > 60 BUN/Creatinine Ratio 18 Glucose 103 H Calcium 9.5 Total Creatine Kinase CK-MB (CK-2) CK-MB (CK-2) Rel Index Troponin T - EKG Data -: EKG Interpreted by Me EKG shows normal: sinus rhythm Rate: normal - EKG Data When compared to previous EKG there are: changes noted Interpretation: nonspecific ST-T wave carmen (new T-wave inversion in lead V2) - Radiology Data Radiology results: report reviewed (CT head, CT cervical spine, left hand x- ray), image reviewed (CT head, CT cervical spine, left hand x-ray) interpreted by me: Left hand x-ray-no acute fracture seen [place] [id number] Cat Scan Report Signed Patient: CONNOR STRANGE MR#: [id number] : 1945 Acct:[id number] Age/Sex: 73 / M ADM Date: 12/26/18 Loc: ED Attending Dr: Ordering Physician: ARUN HALL MD Date of Service: 12/26/18 Procedure(s): CT head/brain wo con Accession Number(s): [id number] cc: ARUN HALL MD CT head with out contrast HISTORY: fall with LOC. TECHNIQUE: Axial imaging performed from the skull apex through the skull base without the use of contrast. All CT scans at this location are performed using CT dose reduction for ALARA by means of automated exposure control. COMPARISON: CT head from 05/25/2014 FINDINGS: Parenchyma: No acute intracranial hemorrhage or parenchymal abnormality. Ventricles: There is mild diffuse brain atrophy with commensurate ventricular enlargement which is likely age appropriate. Soft tissues: Soft tissues including the orbits appear normal. Left orbital prosthesis again noted. Bones: No acute osseous abnormality. Sinuses: Sinuses and mastoid air cells are clear. IMPRESSION: No acute abnormality. Signer Name: Stanley Castellanos MD Signed: 12/26/2018 11:38 AM Workstation Name: [id number] Transcribed By: STEFANO Dictated By: Stanley Castellanos MD Electronically Authenticated By: Stanley Castellanos MD Signed Date/Time: 12/26/18 113 DD/ 113 TD/TT: [place] [address] Cat Scan Report Signed Patient: CONNOR STRANGE MR#: [id number] : 1945 Acct:[id number] Age/Sex: 73 / M ADM Date: 12/26/18 Loc: ED Attending Dr: Ordering Physician: ARUN HALL MD Date of Service: 12/26/18 Procedure(s): CT head/brain wo con Accession Number(s): [id number] cc: ARUN HALL MD CT head without contrast HISTORY: fall with LOC. TECHNIQUE: Axial imaging performed from the skull apex through the skull base without the use of contrast. All CT scans at this location are performed using CT dose reduction for ALARA by means of automated exposure control. COMPARISON: CT head from 05/25/2014 FINDINGS: Parenchyma: No acute intracranial hemorrhage or parenchymal abnormality. Ventri cles: There is mild diffuse brain atrophy with commensurate ventricular enlargement which is likely age appropriate. Soft tissues: Soft tissues including the orbits appear normal. Left orbital prosthesis again noted. Bones: No acute osseous abnormality. Sinuses: Sinuses and mastoid air cells are clear. IMPRESSION: No acute abnormality. Signer Name: Stanley Castellanos MD Signed: 12/26/2018 11:38 AM Workstation Name: [id number] Transcribed By: STEFANO Dictated By: Stanley Castellanos MD Electronically Authenticated By: Stanley Castellanos MD Signed Date/Time: 12/26/18 1138 DD/ 1136 TD/TT: [facility] [address] [place] [address] XRay Report Signed Patient: CONNOR STRANGE MR#: [id number] : 1945 Acct:[id number] Age/Sex: 73 / M ADM Date: 12/26/18 Loc: ED Attending Dr: Ordering Physician: ARUN HALL MD Date of Service: 12/26/18 Procedure(s): XR hand 2V LT Accession Number(s): [id number] cc: ARUN HALL MD Fluoro Time In Minutes: Left hand-2 views INDICATION: pain and swelling after injury. COMPARISO N: None. IMPRESSION: The lateral view is virtually nondiagnostic for the fingers because of overlapping fingers. The little finger is in flexion at the PIP joint on both images and there is mild soft ti ssue swelling along the dorsum of the hand. Please note that the little finger is not adequately evaluated on the lateral view. Within these constraints, no gross fracture identified. Mild degenerative changes are present throughout the hand. If there is high clinical concern, consider repeating an adequate exam with 4 views. Signer Name: Stanley Castellanos MD Signed: 12/26/2018 12:25 PM Workstation Name: [id number] Transcribed By: STEFANO Dictated By: Stanley Castellanos MD Electronically Authenticated By: Stanley Castellanos MD Signed Date/Time: 12/26/18 1225 DD/ 1222 TD/TT: - Differential Diagnosis metacarpal fracture, syncope, ICH, intracranial mass Critical care attestation.: If time is entered above; I have spent that time in minutes in the direct care of this critically ill patient, excluding procedure time. ED Disposition Clinical Impression: Syncope, Contusion of left hand Disposition: -07 LEFT AGAINST MED ADVICE Is pt being admited?: No Does the pt Need Aspirin: No Condition: Undetermined Instructions: Syncope (ED) Referrals: RAMÍREZ PATEL MD [Staff Physician] - 3-5 Days (Dr. Patel is an orth opedic surgeon. Please follow up with him for further evaluation of your hand) Time of Disposition: 13:31 (patient leaving AMA)
--- NOTE | 2018-12-26 12:02 | Cat Scan Report ---
CT CERVICAL SPINE WITHOUT INDICATION: fall with LOC. TECHNIQUE: Axial imaging performed through the T2 level without the use of contrast. Sagittal and c oronal reconstructed images were also reviewed. All CT scans at this location are performed using CT dose reduction for ALARA by means of automated exposure control. COMPARISON: None FINDINGS: Alignment: Spinal alignment is normal. Bones: No fracture. Moderate multilevel discogenic DJD is present. This is greatest at the C6-7 le rina where there is greater narrowing of the disc space and the largest anterior osteophytes. Soft tissues: No acute or significant incidental soft tissue abnormality. IMPRESSION: 1. No acute abnormality. 2. Multilevel discogenic degenerative joint disease. Signer Name: Randell Ferrara MD Signed: 12/26/2018 11:58 AM Workstation Name: [id number]
--- NOTE | 2018-12-26 12:30 | XRay Report ---
Left hand-2 views INDICATION: pain and swelling after injury. COMPARISON: None. IMPRESSION: The lateral view is virtually nondiagnostic for the fingers because of overlapping finge rs. The little finger is in flexion at the PIP joint on both images and there is mild soft tissue swe lling along the dorsum of the hand. Please note that the little finger is not adequately evaluated on the lateral view. Within these constraints, no gross fracture identified. Mild degenerative changes are present throughout the hand. If there is high clinical concern, consider repeating an adequate ex am with 4 views. Signer Name: Stanley Castellanos MD Signed: 12/26/2018 12:25 PM Workstation Name: [id number]
[2018-12-26 12:48] LABS: Basophils # (Auto) 0.1 K/mm3 (0.0-0.1); Basophils % (Auto) 0.7 % (0.0-1.8); Eosinophils # (Auto) 0.1 K/mm3 (0.0-0.4); Eosinophils % (Auto) 0.6 % (0.0-4.3); Hematocrit 48.1 % (35.5-45.6); Hemoglobin 15.7 gm/dl (11.8-15.2); Lymphocytes # (Auto) 1.9 K/mm3 (1.2-5.4); Mean Corpuscular HGB Conc 33 % (32-34); Monocytes # (Auto) 0.7 K/mm3 (0.0-0.8); Monocytes % (Auto) 6.9 % (0.0-7.3); Platelet Count 239 K/mm3 (140-440); Red Cell Distribution Width 15.3 % (13.2-15.2)
[2018-12-26 13:00] LABS: INR 1.15 (0.87-1.13)
[2018-12-26 13:23] LABS: BUN/Creatinine Ratio 18; Blood Urea Nitrogen 9 mg/dL (9-20); Calcium 9.5 mg/dL (8.4-10.2); Hemolysis Index 6
[2018-12-26 13:24] LABS: Creatine Kinase MB 4.6 ng/mL (0.0-4.0)
[2018-12-26 13:27] VITALS: BP 149/87
[2018-12-26 13:29] LABS: Mean Corpuscular Volume 70 fl (84-94)
== END 2018-12-26 14:10 | disposition left against medical advice (07) ==
LOC: ED 10:40
DX: S60.222A Contusion of left hand, initial encounter (principal); R55 Syncope and collapse; I10 Essential (primary) hypertension; Z86.711 Personal history of pulmonary embolism; Z87.891 Personal history of nicotine dependence; Z79.899 Other long term (current) drug therapy; W01.198A Fall on same level from slipping, tripping and stumbling with subsequent striking against other object, initial encounter; Y93.89 Activity, other specified; Y92.89 Other specified places as the place of occurrence of the external cause; Y99.8 Other external cause status
CPT/HCPCS: 36415; 70450; 72125; 80048; 82550; 82553; 84484; 85025; 85610; 93005; 93010

== ENCOUNTER 2019-04-20 19:11 | Observation (INO) | payer MEDICARE ==
--- NOTE | 2019-04-20 20:49 | Emergency Department Report ---
ED General Adult HPI - General Chief complaint: Urogenital-Male Stated complaint: CANT URINATE Time Seen by Provider: 04/20/19 20:20 Source: patient Mode of arrival: Ambulatory Limitations: No Limitations - History of Present Illness Initial comments: The patient presents to the emergency department with a chief complaint of not being able to urinate. Patient has a history of benign prostate hyperplasia and takes Flomax daily for this diagnosis. Patient states he has not been able to urinate for the last 3 days. Patient states this happened in the past and he had to have a Carballo placed. Patient has no other complaints. -: Gradual Location: abdomen Severity scale (0 -10): 2 Quality: aching Consistency: constant Improves with: none Worsens with: none Associated Symptoms: denies other symptoms Treatments Prior to Arrival: none - Related Data Home Medications Medication Instructions Recorded Confirmed Last Taken Lipitor 10 mg PO QDAY 05/14/14 03/27/18 03/26/18 09:00 Rivaroxaban [Xarelto] 10 mg PO QDAY 03/20/18 03/27/18 03/24/18 09:00 Previous Rx's Medication Instructions Recorded Last Taken Type Tamsulosin [Flomax] 0.8 mg PO QDAY #60 cap 06/21/14 03/26/18 09:00 Rx amLODIPine 10 mg PO QDAY #30 tablet 06/21/14 03/27/18 05:00 Rx Acetaminophen [Acetaminophen TAB] 650 mg PO Q4H PRN #15 tablet 02/08/18 Unknown Rx Allergies Allergy/AdvReac Type Severity Reaction Status Date / Time No Known Allergies Allergy Verified 03/11/18 15:57 ED Review of Systems ROS: Stated complaint: CANT URINATE Other details as noted in HPI Comment: All other systems reviewed and negative Constitutional: denies: chills, fever Eyes: denies: eye pain, eye discharge, vision change ENT: denies: ear pain, throat pain Respiratory: denies: cough, shortness of breath, wheezing Cardiovascular: denies: chest pain, palpitations Endocrine: no symptoms reported Gastrointestinal: denies: abdominal pain, nausea, diarrhea Genitourinary: denies: urgency, dysuria Musculoskeletal: denies: back pain, joint swelling, arthralgia Skin: denies: rash, lesions Neurological: denies: headache, weakness, paresthesias Psychiatric: denies: anxiety, depression Hematological/Lymphatic: denies: easy bleeding, easy bruising ED Past Medical Hx - Past Medical History Previous Medical History?: Yes Hx Hypertension: Yes Hx CVA: Yes Hx Heart Attack/AMI: No Hx Pulmonary Embolism: Yes (ON XARELTO) Hx Liver Disease: No Hx Renal Disease: No 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) Hx Seizures: No Hx Asthma: No Hx COPD: No Hx HIV: No Additional medical history: BPH - Surgical History Past Surgical History?: Yes Additional Surgical History: subrapubic catheter placement, prosthetic eye (left) - Social History Smoking Status: Never Smoker Substance Use Type: None - Medications Home Medications: Home Medications Medication Instructions Recorded Confirmed Last Taken Type Lipitor 10 mg PO QDAY 05/14/14 03/27/18 03/26/18 09:00 History Tamsulosin [Flomax] 0.8 mg PO QDAY #60 cap 06/21/14 03/27/18 03/26/18 09:00 Rx amLODIPine 10 mg PO QDAY #30 tablet 06/21/14 03/27/18 03/27/18 05:00 Rx Acetaminophen [Acetaminophen TAB] 650 mg PO Q4H PRN #15 tablet 02/08/18 03/20/18 Unknown Rx Rivaroxaban [Xarelto] 10 mg PO QDAY 03/20/18 03/27/18 03/24/18 09:00 History ED Physical Exam - General Limitations: No Limitations General appearance: alert, in no apparent distress - Head Head exam: Present: atraumatic, normocephalic - Eye Eye exam: Present: normal appearance, PERRL, EOMI - ENT ENT exam: Present: mucous membranes moist - Neck Neck exam: Present: normal inspection - Respiratory Respiratory exam: Present: normal lung sounds bilaterally. Absent: respiratory distress - Cardiovascular Cardiovascular Exam: Present: regular rate, normal rhythm. Absent: systolic murmur, diastolic murmur, rubs, gallop - GI/Abdominal GI/Abdominal exam: Present: soft, normal bowel sounds, other (Patient has tenderness to suprapubic region with distention of bladder being recognized on palpation). Absent: distended, tenderness - Rectal Rectal exam: Present: deferred - Extremities Exam Extremities exam: Present: normal inspection - Back Exam Back exam: Present: normal inspection - Neurological Exam Neurological exam: Present: alert, oriented X3, CN II-XII intact. Absent: motor sensory deficit - Psychiatric Psychiatric exam: Present: normal affect, normal mood - Skin Skin exam: Present: warm, dry, intact, normal color. Absent: rash ED Course Vital Signs 04/20/19 04/20/19 04/20/19 19:36 19:43 20:30 Temperature 98.4 F 98.4 F Pulse Rate 99 H Respiratory 18 18 Rate Blood Pressure Blood Pressure 124/79 [Left] O2 Sat by Pulse 97 99 Oximetry 04/20/19 04/20/19 04/20/19 20:45 21:00 21:03 Temperature Pulse Rate 85 86 Respiratory 14 13 18 Rate Blood Pressure 130/75 131/74 Blood Pressure [Left] O2 Sat by Pulse 99 98 100 Oximetry 04/20/19 04/20/19 04/20/19 21:15 21:31 21:45 Temperature Pulse Rate 83 94 H 78 Respiratory 20 17 22 Rate Blood Pressure 131/74 131/74 131/74 Blood Pressure [Left] O2 Sat by Pulse 99 100 100 Oximetry 04/20/19 04/20/19 04/20/19 22:00 22:15 22:31 Temperature Pulse Rate 83 88 89 Respiratory 18 22 20 Rate Blood Pressure 137/81 137/81 137/81 Blood Pressure [Left] O2 Sat by Pulse 100 100 100 Oximetry 04/20/19 04/20/19 04/20/19 22:45 23:00 23:15 Temperature Pulse Rate 94 H 83 89 Respiratory 17 18 15 Rate Blood Pressure 137/81 146/78 146/78 Blood Pressure [Left] O2 Sat by Pulse 100 100 100 Oximetry ED Medical Decision Making - Lab Data Result diagrams: 04/21/19 01:02 04/21/19 01:02 Lab Results 04/21/19 04/21/19 04/21/19 Range/Units 01:00 01:02 01:02 WBC 15.2 H (4.5-11.0) K/mm3 RBC 6.65 H (3.65-5.03) M/mm3 Hgb 15.1 (11.8-15.2) gm/dl Hct 45.6 (35.5-45.6) % MCV 69 L (84-94) fl MCH 23 L (28-32) pg MCHC 33 (32-34) % RDW 15.7 H (13.2-15.2) % Plt Count 235 (140-440) K/mm3 Lymph % (Auto) 18.1 (13.4-35.0) % [place] % (Auto) 6.7 (0.0-7.3) % Eos % (Auto) 0.7 (0.0-4.3) % Baso % (Auto) 1.6 (0.0-1.8) % Lymph # 2.8 (1.2-5.4) K/mm3 [place] # 1.0 H (0.0-0.8) K/mm3 Eos # 0.1 (0.0-0.4) K/mm3 Baso # 0.2 H (0.0-0.1) K/mm3 Seg Neutrophils % 72.9 H (40.0-70.0) % Seg Neutrophils # 11.1 H (1.8-7.7) K/mm3 PT 24.0 H (12.2-14.9) Sec. INR 2.10 H (0.87-1.13) APTT 35.6 (24.2-36.6) Sec. Sodium (137-145) mmol/L Potassium (3.6-5.0) mmol/L Chloride (98-107) mmol/L Carbon Dioxide (22-30) mmol/L Anion Gap mmol/L BUN (9-20) mg/dL Creatinine (0.8-1.5) mg/dL Estimated GFR ml/min BUN/Creatinine Ratio % Glucose (75-100) mg/dL Calcium (8.4-10.2) mg/dL Total Bilirubin (0.1-1.2) mg/dL AST (5-40) units/L ALT (7-56) units/L Alkaline Phosphatase (35-129) units/L Total Protein (6.3-8.2) g/dL Albumin (3.9-5) g/dL Albumin/Globulin Ratio % Urine Color Yellow (Yellow) Urine Turbidity Slightly-cloudy (Clear) Urine pH 7.0 (5.0-7.0) Ur Specific [place] 1.010 (1.003-1.030) Urine Protein <15 mg/dl (Negative) mg/dL Urine Glucose (UA) 50 (Negative) mg/dL Urine Ketones Tr (Negative) mg/dL Urine Blood Lg (Negative) Urine Nitrite Neg (Negative) Urine Bilirubin Neg (Negative) Urine Urobilinogen < 2.0 (<2.0) mg/dL Ur Leukocyte Esterase Neg (Negative) Urine WBC (Auto) 40.0 H (0.0-6.0) /HPF Urine RBC (Auto) > 182.0 (0.0-6.0) /HPF Urine Mucus Few /HPF 04/21/19 Range/Units 01:02 WBC (4.5-11.0) K/mm3 RBC (3.65-5.03) M/mm3 Hgb (11.8-15.2) gm/dl Hct (35.5-45.6) % MCV (84-94) fl MCH (28-32) pg MCHC (32-34) % RDW (13.2-15.2) % Plt Count (140-440) K/mm3 Lymph % (Auto) (13.4-35.0) % [place] % (Auto) (0.0-7.3) % Eos % (Auto) (0.0-4.3) % Baso % (Auto) (0.0-1.8) % Lymph # (1.2-5.4) K/mm3 [place] # (0.0-0.8) K/mm3 Eos # (0.0-0.4) K/mm3 Baso # (0.0-0.1) K/mm3 Seg Neutrophils % (40.0-70.0) % Seg Neutrophils # (1.8-7.7) K/mm3 PT (12.2-14.9) Sec. INR (0.87-1.13) APTT (24.2-36.6) Sec. Sodium 138 (137-145) mmol/L Potassium 3.7 (3.6-5.0) mmol/L Chloride 101.5 (98-107) mmol/L Carbon Dioxide 19 L (22-30) mmol/L Anion Gap 21 mmol/L BUN 26 H (9-20) mg/dL Creatinine 2.4 H (0.8-1.5) mg/dL Estimated GFR 32 ml/min BUN/Creatinine Ratio 11 % Glucose 118 H (75-100) mg/dL Calcium 9.4 (8.4-10.2) mg/dL Total Bilirubin 1.10 (0.1-1.2) mg/dL AST 52 H (5-40) units/L ALT 23 (7-56) units/L Alkaline Phosphatase 73 (35-129) units/L Total Protein 6.8 (6.3-8.2) g/dL Albumin 4.1 (3.9-5) g/dL Albumin/Globulin Ratio 1.5 % Urine Color (Yellow) Urine Turbidity (Clear) Urine pH (5.0-7.0) Ur Specific [place] (1.003-1.030) Urine Protein (Negative) mg/dL Urine Glucose (UA) (Negative) mg/dL Urine Ketones (Negative) mg/dL Urine Blood (Negative) Urine Nitrite (Negative) Urine Bilirubin (Negative) Urine Urobilinogen (<2.0) mg/dL Ur Leukocyte Esterase (Negative) Urine WBC (Auto) (0.0-6.0) /HPF Urine RBC (Auto) (0.0-6.0) /HPF Urine Mucus /HPF - Medical Decision Making Bladder scan shows greater than 999 cc of urine Regular Carballo and a coud were attempted in the emergency department to no avail Patient is an established patient of Dr. Montana. Was able to get in contact with Dr. Ng who is on-call physician for Dr. [place] who agreed to come see the patient in the ED Suprapubic catheter placed in the ED please see his procedure note. Laboratory values shows acute renal failure with UTI Patient given IV ceftriaxone Patient will be admitted The patient is on Xarelto the last dose was close to 24 hours ago Critical care attestation.: If time is entered above; I have spent that time in minutes in the direct care of this critically ill patient, excluding procedure time. ED Disposition Clinical Impression: Acute renal failure, Urinary retention, UTI (urinary tract infection) Disposition: OP ADMIT IP TO THIS HOSP Is pt being admited?: Yes Does the pt Need Aspirin: No Condition: Fair
[2019-04-21] MEDS ORDERED: LIDOCAINE 1%/EPINEPHRINE 1:100,000 VIAL (20 ML) INFILTRATI ONE (00:23)
[2019-04-21 01:17] LABS: Basophils # (Auto) 0.2 K/mm3 (0.0-0.1); Basophils % (Auto) 1.6 % (0.0-1.8); Eosinophils # (Auto) 0.1 K/mm3 (0.0-0.4); Eosinophils % (Auto) 0.7 % (0.0-4.3); Hematocrit 45.6 % (35.5-45.6); Hemoglobin 15.1 gm/dl (11.8-15.2); Lymphocytes # (Auto) 2.8 K/mm3 (1.2-5.4); Lymphocytes % (Auto) 18.1 % (13.4-35.0); Mean Corpuscular HGB Conc 33 % (32-34); Monocytes % (Auto) 6.7 % (0.0-7.3); Platelet Count 235 K/mm3 (140-440); Red Blood Count 6.65 M/mm3 (3.65-5.03); Red Cell Distribution Width 15.7 % (13.2-15.2)
[2019-04-21 01:19] LABS: Mean Corpuscular Volume 69 fl (84-94)
[2019-04-21] MEDS ORDERED: cefTRIAXone/NS 2 GM/100 ML 2 GM/100 ML BAG IV ONE (01:20)
[2019-04-21 01:23] LABS: Bilirubin,Urine NEG (Negative); Blood,Urine LG (Negative); Color,Urine Yellow (Yellow); Mucus,Urine FEW /HPF; Protein,Urine <15 mg/dL mg/dL (Negative); Urobilinogen,Urine < 2.0 mg/dL (<2.0)
[2019-04-21 01:25] LABS: RBC,Urine > 182.0 /HPF (0.0-6.0)
[2019-04-21 01:38] LABS: INR 2.1 (0.87-1.13); Partial Thromboplastin Time 35.6 Sec. (24.2-36.6)
[2019-04-21 01:40] LABS: Albumin 4.1 g/dL (3.9-5); Calcium 9.4 mg/dL (8.4-10.2)
[2019-04-21] MEDS ORDERED: ACETAMINOPHEN 325 MG TAB PO PRN (05:10)
[2019-04-21] MEDS ORDERED: ONDANSETRON 4 MG/2 ML INJ IV PRN (05:10)
[2019-04-21] MEDS ORDERED: hydrALAZINE 20 MG/1 ML INJ IV PRN (05:19)
--- NOTE | 2019-04-21 05:19 | History and Physical Report ---
History of Present Illness History of present illness: 73-year-old male with a history of BPH, hypertension, PE on Xarelto, hyperlipidemia comes emergency room with complaints of unable to urinate since , 2 days. States he is compliant with his Flomax. Urology was consulted, they placed a Carballo in the emergency room, 1200 cc of urine was obtained patient will be admitted for urinary retention, acute renal failure Review Of Systems: Constitutional: no weight loss, fever, chills Ears, eyes, nose, mouth and throat: no nasal congestion, no nasal discharge, no sinus pressure, blurry vision, diplopia Neck: No neck pain or rigidity. Cardiovascular: No palpitations, chest pain Respiratory: No shortness of breath, cough Gastrointestinal: No hematochezia Genitourinary : no dysuria, frequency Musculoskeletal: no muscle ache , joint pain Integumentary: no rash, no pruritis Neurological: no parathesias, focal weakness Endocrine: no cold or heat intolerance, no polyuria or polydipsia Hematologic/Lymphatic: no easy bruising, no easy bleeding, no gland swelling Allergic/Immunologic: no urticaria, no angioedema. PAST MEDICAL HISTORY: BPH, hypertension, PE on Xarelto, hyperlipidemia PAST SURGICAL HISTORY: TURP SOCIAL HISTORY: Denies alcohol, tobacco, drugs FAMILY HISTORY: Hypertension Medications and Allergies Allergies Allergy/AdvReac Type Severity Reaction Status Date / Time No Known Allergies Allergy Verified 03/11/18 15:57 Home Medications Medication Instructions Recorded Confirmed Last Taken Type Lipitor 10 mg PO QDAY 05/14/14 04/21/19 03/26/18 09:00 History Tamsulosin [Flomax] 0.8 mg PO QDAY #60 cap 06/21/14 04/21/19 03/26/18 09:00 Rx amLODIPine 10 mg PO QDAY #30 tablet 06/21/14 04/21/19 03/27/18 05:00 Rx Acetaminophen [Acetaminophen TAB] 650 mg PO Q4H PRN #15 tablet 02/08/18 04/21/19 Unknown Rx Rivaroxaban [Xarelto] 10 mg PO QDAY 03/20/18 04/21/19 03/24/18 09:00 History Active Meds: Active Medications Acetaminophen (Tylenol) 650 mg PO Q4H PRN PRN Reason: Pain MILD(1-3)/Fever >100.5/[place] Amlodipine Besylate (Amlodipine) 10 mg PO QDAY N[place]OLAS Sodium Chloride (Nacl 0.9% 1000 Ml) 1,000 mls @ 150 mls/hr IV DIRECT NICKOLAS Miscellaneous Medication (Lipitor) 10 mg PO QDAY N[place] Ondansetron HCl (Zofran) 4 mg IV Q8H PRN PRN Reason: Nausea And Vomiting Sodium Chloride (Sodium Chloride Flush Syringe 10 Ml) 10 ml IV BID NICKOLAS Sodium Chloride (Sodium Chloride Flush Syringe 10 Ml) 10 ml IV PRN PRN PRN Reason: LINE FLUSH Tamsulosin HCl (Flomax) 0.8 mg PO QDAY NICKOLAS Exam - Physical Exam Narrative exam: Gen. appearance: Patient lying in bed, no apparent distress HEENT: Normocephalic, atraumatic, pupils equally round and reactive to light, extraocular movement intact, and no sclericterus,. No JVD or thyromegaly or nodule,neck supple, no carotid bruit ,mucous membranes moist, no exudate or erythema Heart: S1, S2, regular rate and rhythm Lungs: Clear bilaterally, breathing comfortable Abdomen: Positive bowel sounds, nontender, nondistended, no organomegaly Extremity: no edema, cyanosis, clubbing Skin: No rash, nodules, warm, dry Neuro: Cranial nerves II to XII intact, speech is fluent, moves extremities, s ensory intact - Constitutional Vitals: Temp Pulse Resp BP Pulse Ox 98.4 F 82 16 146/78 96 04/20/19 19:43 04/21/19 02:45 04/21/19 02:45 04/21/19 02:45 04/21/19 02:45 Results - Labs CBC & Chem 7: 04/21/19 01:02 04/21/19 01:02 Labs: Abnormal lab results 04/21/19 04/21/19 04/21/19 Range/Units 01:00 01:02 01:02 WBC 15.2 H (4.5-11.0) K/mm3 RBC 6.65 H (3.65-5.03) M/mm3 MCV 69 L (84-94) fl MCH 23 L (28-32) pg RDW 15.7 H (13.2-15.2) % [place] # 1.0 H (0.0-0.8) K/mm3 Baso # 0.2 H (0.0-0.1) K/mm3 Seg Neutrophils % 72.9 H (40.0-70.0) % Seg Neutrophils # 11.1 H (1.8-7.7) K/mm3 PT 24.0 H (12.2-14.9) Sec. INR 2.10 H (0.87-1.13) Carbon Dioxide (22-30) mmol/L BUN (9-20) mg/dL Creatinine (0.8-1.5) mg/dL Glucose (75-100) mg/dL AST (5-40) units/L Urine WBC (Auto) 40.0 H (0.0-6.0) /HPF / Range/Units 01:02 WBC (4.5-11.0) K/mm3 RBC (3.65-5.03) M/mm3 MCV (84-94) fl MCH (28-32) pg RDW (13.2-15.2) % [place] # (0.0-0.8) K/mm3 Baso # (0.0-0.1) K/mm3 Seg Neutrophils % (40.0-70.0) % Seg Neutrophils # (1.8-7.7) K/mm3 PT (12.2-14.9) Sec. INR (0.87-1.13) Carbon Dioxide 19 L (22-30) mmol/L BUN 26 H (9-20) mg/dL Creatinine 2.4 H (0.8-1.5) mg/dL Glucose 118 H (75-100) mg/dL AST 52 H (5-40) units/L Urine WBC (Auto) (0.0-6.0) /HPF Assessment and Plan Assessment Urinary retention status post Carballo by urology Urology recommend to hold Xarelto and other anticoagulation for now Acute renal failure Start IV fluid, monitor kidney function Urinary tract infection Start IV Rocephin, follow cultures History of pulmonary embolism on Xeralto Hold Xarelto for now per urology Hypertension Continue nornasc Hyperlipidemia Continuine Lipitor
[2019-04-21] MEDS: SODIUM CHLORIDE 0.9% 1000 ML 1,000 ML IV SCH ×2 (05:37→22:08)
[2019-04-21] MEDS ORDERED: LIPITOR 10 MG PO SCH (10:00)
[2019-04-21] MEDS: amLODIPine 10 MG TAB PO SCH (10:46)
[2019-04-21] MEDS: TAMSULOSIN 0.4 MG CAP PO SCH (10:46)
--- NOTE | 2019-04-21 10:48 | Event Note ---
Date: 04/21/19 Patient was admitted this morning , patient seen and examined, status post suprapubic catheter placement Patient feels better no new complaints Urinary retention status post Carballo by urology Urology recommend to hold Xarelto and other anticoagulation for now Acute renal failure Start IV fluid, monitor kidney function Urinary tract infection Start IV Rocephin, follow cultures History of pulmonary embolism on Xeralto Hold Xarelto for now per urology Hypertension Continue nornasc Hyperlipidemia Continuine Lipitor Continue current management
[2019-04-21] MEDS ORDERED: cefTRIAXone/NS 1 GM/50 ML 1 GM/50 ML BAG IV SCH (22:00)
[2019-04-22] MEDS: SODIUM CHLORIDE 0.9% 1000 ML 1,000 ML IV SCH ×2 (05:36→09:48)
[2019-04-22 08:06] VITALS: BP 115/56
[2019-04-22 08:24] LABS: Basophils % (Auto) 0.4 % (0.0-1.8); Eosinophils # (Auto) 0.5 K/mm3 (0.0-0.4); Eosinophils % (Auto) 4.8 % (0.0-4.3); Hematocrit 40.9 % (35.5-45.6); Hemoglobin 13.4 gm/dl (11.8-15.2); Lymphocytes # (Auto) 3.8 K/mm3 (1.2-5.4); Lymphocytes % (Auto) 40.2 % (13.4-35.0); Mean Corpuscular HGB Conc 33 % (32-34); Mean Corpuscular Volume 70 fl (84-94); Monocytes # (Auto) 0.9 K/mm3 (0.0-0.8); Monocytes % (Auto) 9.3 % (0.0-7.3); Platelet Count 195 K/mm3 (140-440); Red Blood Count 5.83 M/mm3 (3.65-5.03); Red Cell Distribution Width 15.9 % (13.2-15.2)
[2019-04-22] MEDS: amLODIPine 10 MG TAB PO SCH (09:43)
[2019-04-22] MEDS: TAMSULOSIN 0.4 MG CAP PO SCH (09:43)
--- NOTE | 2019-04-22 13:21 | Discharge Summary ---
Providers - Providers Date of Admission: 04/21/19 03:08 Date of discharge: 04/22/19 Attending physician: ASHLEY BRUCE 04/21/19 05:10 Consult to Physician [CONS] Routine Comment: left mess. answ. serv. /yanique Consulting Provider: ELLA STOCK Physician Instructions: Reason For Exam: urinary retentiom Primary care physician: [facility], Hospitalization Reason for admission: Urinary retention/acute kidney injury Condition: Fair Hospital course: 73-year-old male with a history of BPH, hypertension, PE on Xarelto, hyperlipidemia comes emergency room with complaints of unable to urinate since , 2 days. States he is compliant with his Flomax. Urology was consulted, they placed a Wolf in the emergency room, 1200 cc of urine was obtained patient will be admitted for urinary retention, acute renal failure Patient was closely monitored, received IV Rocephin for possible UTI, input output monitored No hematuria, urology recommended to DC home with Wolf in place, and not TO remove the Wolf until he sees the urologist. Discharge diagnosis; And management; --Urinary retention status post Wolf by urology Urology recommend to hold Xarelto Urology cleared for discharge with Wolf in place Advised to start Xarelto tomorrow 04/23/2019 --Acute renal failure; vasomotor nephropathy On IV fluid, monitor kidney function,Avoid nephrotoxins Advised the patient to follow with private instructional systems specialist Check creatinine and renal function in 2 days --Urinary tract infection; received Rocephin during hospital stay Discharged on 7 days of Ceftin, advised plenty of oral fluids --History of pulmonary embolism on Xeralto Urology advised to resume Xarelto tomorrow And to hold Xarelto if he notices any bleeding And contact MD --Hypertension; moderate control Continue current antihypertensives --Hyperlipidemia; low-cholesterol diet Continuine Lipitor Strongly advised not to remove the Wolf catheter till he sees the urologist Patient verbalized understanding, advised the nurse to give leg urinary bag prior to discharge. Cleared by urology, stable at discharge Disposition: DC-01 TO HOME OR SELFCARE Time spent for discharge: 32 min Core Measure Documentation - Palliative Care Palliative Care/ Comfort Measures: Not Applicable - Core Measures Any of the following diagnoses?: none Exam - Constitutional Vitals: Temp Pulse Resp BP Pulse Ox 98.7 F 65 20 115/56 97 04/22/19 07:50 04/22/19 10:00 04/22/19 10:00 04/22/19 09:43 04/22/19 10:00 General appearance: Present: no acute distress, well-nourished - EENT Eyes: Present: PERRL, EOM intact - Neck Neck: Present: supple, normal ROM - Respiratory Respiratory effort: normal Respiratory: bilateral: diminished, negative: rales, rhonchi, wheezing - Cardiovascular Rhythm: regular Heart Sounds: Present: S1 & S2 - Extremities Extremities: no ischemia, No edema - Abdominal General gastrointestinal: Present: soft, non-tender, non-distended, normal bowel sounds - Integumentary Integumentary: Present: clear, warm - Musculoskeletal Musculoskeletal: strength equal bilaterally - Psychiatric Psychiatric: appropriate mood/affect, cooperative - Neurologic Neurologic: moves all extremities Plan Activity: advance as tolerated Additional Instructions: Resume Xeralto tomorrow. If you notice any bleeding,stop xarelto and contact MD. Do not remove the wolf. See urologist in 2 weeks. Patient advised to see his private instructional systems specialist in 2 days, and check creatinine and renal function Follow up with: CONY [facility]EL[facility] MD EDISON [Primary Care Provider] - 3-5 Days ELLA STOCK MD [Staff Physician] - 7 Days Prescriptions: cefUROXime [Ceftin] 2 tab PO Q12H #28 tablet Magnesium Hydroxide [Milk of Magnesia] 400 mg PO DAILY PRN #1 bottle PRN Reason: Constipation
[2019-04-22] MEDS ORDERED: MAGNESIUM HYDROXIDE (MOM) ORAL LIQD UDC PO PRN (15:02)
[2019-04-22] MEDS ORDERED: MAGNESIUM HYDROXIDE (MOM) ORAL LIQD UDC PO ONE (16:00)
== END 2019-04-22 18:05 | disposition home or self-care (01) ==
LOC: ED 19:11 → 2B-ACE 04-21 03:08
PROVIDERS: ADMIT Internal Medicine; ATTEND Internal Medicine
DX: N17.9 Acute kidney failure, unspecified (principal); N39.0 Urinary tract infection, site not specified; R33.9 Retention of urine, unspecified; I10 Essential (primary) hypertension; E78.5 Hyperlipidemia, unspecified; Z79.899 Other long term (current) drug therapy; Z86.711 Personal history of pulmonary embolism; Z86.73 Personal history of transient ischemic attack (TIA), and cerebral infarction without residual deficits
CPT/HCPCS: 36415; 80053; 81001; 85025; 85610; 85730; 87086; 87116; 96365; 96366; 99284; A9270; C1769; C2627; G0378; J0696; J7030

== ENCOUNTER 2019-05-30 06:34 | Emergency (ER) | payer MEDICARE ==
[2019-05-30 06:42] VITALS: BP 142/61
--- NOTE | 2019-05-30 07:09 | Emergency Department Report ---
ED General Adult HPI - General Chief complaint: Urogenital-Male Stated complaint: WOODWARD BAG LOOSE Time Seen by Provider: 05/30/19 06:55 Source: patient, RN notes reviewed, old records reviewed Mode of arrival: Ambulatory Limitations: Physical Limitation - History of Present Illness Initial comments: Urology: Dr. Montana The patient is a 73-year-old gentleman, who is not known to myself previously, with a history of indwelling suprapubic Woodward catheter, placed March 2018, BPH, hypertension, pulmonary embolism on Xarelto, hyperlipidemia, presenting to the ER today with a chief complaint of malposition and dislodgment of his StatLock, which was adhering to his right abdominal wall, directing his suprapubic Woodward catheter tubing. He denies physical pain. He denies all other complaints. The suprapubic Woodwadr catheter is in place, and is currently draining clear yellow urine. This happened just prior to presentation. -: Sudden Quality: constant Improves with: other (Symptoms are improved with placement of a StatLock) Worsens with: none Associated Symptoms: denies other symptoms - Related Data Home Medications Medication Instructions Recorded Confirmed Last Taken Lipitor 10 mg PO QDAY 05/14/14 04/21/19 03/26/18 09:00 Rivaroxaban [Xarelto] 10 mg PO QDAY 03/20/18 04/21/19 03/24/18 09:00 Previous Rx's Medication Instructions Recorded Last Taken Type Tamsulosin [Flomax] 0.8 mg PO QDAY #60 cap 06/21/14 03/26/18 09:00 Rx amLODIPine 10 mg PO QDAY #30 tablet 06/21/14 03/27/18 05:00 Rx Acetaminophen [Acetaminophen TAB] 650 mg PO Q4H PRN #15 tablet 02/08/18 Unknown Rx Magnesium Hydroxide [Milk of 400 mg PO DAILY PRN #1 bottle 04/22/19 Unknown Rx Magnesia] cefUROXime [Ceftin] 2 tab PO Q12H #28 tablet 04/22/19 Unknown Rx Allergies Allergy/AdvReac Type Severity Reaction Status Date / Time No Known Allergies Allergy Verified 03/11/18 15:57 ED Review of Systems ROS: Stated complaint: WOODWARD BAG LOOSE Other details as noted in HPI Constitutional: no symptoms reported Eyes: as per HPI Respiratory: no symptoms reported Cardiovascular: as per HPI Endocrine: no symptoms reported, see HPI Gastrointestinal: as per HPI Genitourinary: as per HPI Musculoskeletal: as per HPI Skin: as per HPI Neurological: as per HPI Psychiatric: as per HPI Hematological/Lymphatic: as per HPI ED Past Medical Hx - Past Medical History Previous Medical History?: Yes Hx Hypertension: Yes Hx CVA: Yes (right sided weakness) Hx Heart Attack/AMI: No Hx Pulmonary Embolism: Yes (ON XARELTO) Hx Liver Disease: No Hx Renal Disease: No 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) Hx Seizures: No Hx Asthma: No Hx COPD: No Hx HIV: No Additional medical history: BPH - Surgical History Past Surgical History?: Yes Additional Surgical History: subrapubic catheter placement, prosthetic eye (left) - Social History Smoking Status: Never Smoker Substance Use Type: None - Medications Home Medications: Home Medications Medication Instructions Recorded Confirmed Last Taken Type Lipitor 10 mg PO QDAY 05/14/14 04/21/19 03/26/18 09:00 History Tamsulosin [Flomax] 0.8 mg PO QDAY #60 cap 06/21/14 04/21/19 03/26/18 09:00 Rx amLODIPine 10 mg PO QDAY #30 tablet 06/21/14 04/21/19 03/27/18 05:00 Rx Acetaminophen [Acetaminophen TAB] 650 mg PO Q4H PRN #15 tablet 02/08/18 04/21/19 Unknown Rx Rivaroxaban [Xarelto] 10 mg PO QDAY 03/20/18 04/21/19 03/24/18 09:00 History Magnesium Hydroxide [Milk of 400 mg PO DAILY PRN #1 bottle 04/22/19 Unknown Rx Magnesia] cefUROXime [Ceftin] 2 tab PO Q12H #28 tablet 04/22/19 Unknown Rx ED Physical Exam - General Limitations: Physical Limitation General appearance: alert, in no apparent distress - Head Head exam: Present: atraumatic, normocephalic - Eye Eye exam: Present: normal appearance - ENT ENT exam: Present: normal exam, normal orophraynx, mucous membranes moist, normal external ear exam - Neck Neck exam: Present: normal inspection, full ROM. Absent: tenderness, meningismus - Respiratory Respiratory exam: Present: normal lung sounds bilaterally. Absent: respiratory distress - Cardiovascular Cardiovascular Exam: Present: regular rate, normal rhythm, normal heart sounds. Absent: bradycardia, tachycardia, irregular rhythm, systolic murmur, diastolic murmur, rubs, gallop - GI/Abdominal GI/Abdominal exam: Present: soft, other (There is a suprapubic Woodward catheter in place, adhered to the skin, without redness, pus or streaking, draining clear yellow urine). Absent: distended, tenderness, guarding, rebound, rigid, pulsatile mass - Rectal Rectal exam: Present: deferred - exam: Present: normal inspection, other (Chaperoned by nurse Sal Khanna) External exam: Present: normal external exam - Extremities Exam Extremities exam: Present: normal inspection, other (2+ pulses noted in the bilateral upper and lower extremities. There is no palpable cord. negative Homans sign. Muscular compartments are soft. The pelvis is stable.). Absent: calf tenderness - Back Exam Back exam: Present: normal inspection - Neurological Exam Neurological exam: Present: alert, other (There is no facial droop. Speaking in complete sentences. Moving 4 extremities.) - Skin Skin exam: Present: warm, dry, intact, normal color. Absent: rash ED Course Vital Signs 05/30/19 06:39 Temperature 98.0 F Pulse Rate 78 Respiratory 16 Rate Blood Pressure 142/61 O2 Sat by Pulse 100 Oximetry ED Medical Decision Making - Medical Decision Making Vital Signs 05/30/19 06:39 Temperature 98.0 F Pulse Rate 78 Respiratory 16 Rate Blood Pressure 142/61 O2 Sat by Pulse 100 Oximetry Differential diagnosis, including but not limited to: Suprapubic Woodward catheter maintenance/equipment needs Assessment and plan: 73-year-old gentleman, who is afebrile with reassuring vital signs, with a benign and unremarkable physical exam, with a suprapubic Woodward catheter in place, here for request for dislodged equipment/StatLock. Nursing team will place another StatLock, adhered to the skin, and secured to the patient's Woodward catheter. In addition, local wound care for her chronic suprapubic Woodward catheter stoma will be applied. The patient does not appear to have an emergent medical condition at this time. He is advised to follow-up with his outpatient urologist. Critical care attestation.: If time is entered above; I have spent that time in minutes in the direct care of this critically ill patient, excluding procedure time. ED Disposition Clinical Impression: Woodward catheter problem Qualifiers: Encounter type: initial encounter Qualified Code(s): T83.9XXA - Unspecified complication of genitourinary prosthetic device, implant and graft, initial encounter Disposition: TO HOME OR SELFCARE Is pt being admited?: No Does the pt Need Aspirin: No Condition: Stable Additional Instructions: Make certain to wash hands with soap and water frequently and thoroughly, and do not touch hands to face, eyes, mouth. Continue current outpatient medications. Follow-up with your outpatient urologist within the next 7 to 10 days. Return to the emergency room right away with new, worsened or different symptoms, or symptoms not present on the initial emergency room evaluation. Referrals: ELLA MONTANA MD [Staff Physician] - 7-10 days
== END 2019-05-30 08:20 | disposition home or self-care (01) ==
LOC: ED 06:34
DX: T83.028A Displacement of other urinary catheter, initial encounter (principal); I10 Essential (primary) hypertension; D57.1 Sickle-cell disease without crisis; Z86.73 Personal history of transient ischemic attack (TIA), and cerebral infarction without residual deficits; Z86.711 Personal history of pulmonary embolism; Z98.890 Other specified postprocedural states; Z79.899 Other long term (current) drug therapy; Y84.6 Urinary catheterization as the cause of abnormal reaction of the patient, or of later complication, without mention of misadventure at the time of the procedure
CPT/HCPCS: 99282

== ENCOUNTER 2019-09-26 18:04 | Inpatient (IN) | payer MEDICARE ==
[2019-09-26] MEDS ORDERED: ONDANSETRON 4 MG ODT TAB PO PRN (18:20)
[2019-09-26] MEDS ORDERED: ALBUTEROL 2.5 MG/3 ML NEBU IH PRN (18:20)
[2019-09-26] MEDS ORDERED: ACETAMINOPHEN 325 MG TAB PO PRN (18:20)
[2019-09-26] MEDS ORDERED: POLYETHYLENE GLYCOL 3350 17 GM POWDER PO PRN (18:20)
[2019-09-26] MEDS ORDERED: hydrALAZINE 20 MG/1 ML INJ IV PRN (18:20)
[2019-09-27 08:06] LABS: Hematocrit 43.3 % (35.5-45.6); Hemoglobin 14.2 gm/dl (11.8-15.2); Mean Corpuscular HGB Conc 33 % (32-34); Platelet Count 121 K/mm3 (140-440); Red Cell Distribution Width 15.5 % (13.2-15.2)
[2019-09-27 08:08] LABS: Mean Corpuscular Volume 69 fl (84-94)
[2019-09-27 08:14] LABS: BUN/Creatinine Ratio 33; Blood Urea Nitrogen 40 mg/dL (9-20); Calcium 8.2 mg/dL (8.4-10.2)
[2019-09-27 08:15] LABS: Alanine Aminotransferase 52 units/L (7-56); Albumin 2.8 g/dL (3.9-5); Hemolysis Index 17
[2019-09-27] MEDS: amLODIPine 10 MG TAB PO SCH (09:04)
[2019-09-27] MEDS: RIVAROXABAN 10 MG TAB PO SCH (09:04)
[2019-09-27] MEDS: cefTRIAXone/NS 2 GM/100 ML 2 GM/100 ML BAG IV SCH (09:05)
[2019-09-27] MEDS: OXYBUTYNIN 5 MG TAB PO SCH ×3 (09:05→21:31)
[2019-09-27 10:13] LABS: Basophils % (Manual) 0 % (0.0-1.8); Hypochromasia 1+; Platelet Estimate Consistent w Auto; Target Cells Few; Total Cells Counted 100
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
[2019-09-27] MEDS ORDERED: POTASSIUM CHLORIDE ER 20 MEQ TAB PO SCH (13:00)
[2019-09-27] MEDS: SODIUM CHLORIDE 0.45% 1000 ML 1,000 ML IV SCH (13:02)
[2019-09-27] MEDS: TAMSULOSIN 0.4 MG CAP PO SCH (21:31)
[2019-09-28 07:30] LABS: Hemoglobin 13.9 gm/dl (11.8-15.2); Mean Corpuscular HGB Conc 32 % (32-34); Platelet Count 146 K/mm3 (140-440); Red Blood Count 6.21 M/mm3 (3.65-5.03); Red Cell Distribution Width 15.3 % (13.2-15.2)
[2019-09-28 07:49] LABS: BUN/Creatinine Ratio 29; Blood Urea Nitrogen 29 mg/dL (9-20); Calcium 8.4 mg/dL (8.4-10.2); Hemolysis Index 9
[2019-09-28 08:20] LABS: Mean Corpuscular Volume 69 fl (84-94)
--- NOTE | 2019-09-28 09:19 | Progress Note ---
Subjective Date of service: 09/28/19 Principal diagnosis: Debility with bilateral foot and wrist drop Interval history: 73-year-old male admitted on 09/21/2023 weakness and falling. Patient is a poor historian. After further work-up he had findings suspicious for possible pneumonia and or COVID. He has a previous suprapubic catheter that apparently was clogged as well. Could not be flushed and urology (Dr. Montana) was consulted for placement of Carballo catheter which remains (plugged). He does have neurogenic bladder and BPH per reports. Per notes the plan is to plug the Carballo and go home with the larger SPT open. Urinalysis showed Proteus Mirabilis infection and infectious disease was consulted. He was placed on Rocephin for total of 10 days unless discharged home at which point he would be converted to Cipro. Due to the blocked suprapubic tube he also developed acute kidney injury and was seen by nephrology as well. Medications were dosed on renal basis. CT abdomen showed moderate to severe bilateral hydronephrosis. Creatinine improved once the obstructive uropathy was cleared. Initial chest x-ray showed that there was a left lower lobe pneumonia (not appreciated by my review of imaging) and further investigation into the possible pneumonia as seen on the CT abdomen pelvis did not capture any pneumonia on the chest images captured. He has a history of a pulmonary embolus and remains on Xarelto. He has signs and symptoms of previous neurological damage including a left facial droop and bilateral wrist and foot drop along with slowed speech and interaction. Records not completely clear on causative nature of these changes. Was able to look back in the historical records going back several years and did see another CT head showed a lacunar infarct. Patient also has sickle cell trait per records. Patient was previously independent and able to take care of himself although his did perform all of the household duties including cooking, driving and cleaning (per record review). There was a brief entry by nursing that the patient was placed on restraints due to pulling at IVs and catheters. This was then discontinued. Late last night just prior to being transferred there is also a nursing note stating that the patient is confused, hallucinating and talking to people who were not there. We will have to monitor the patient closely for his own safety and make sure that we do not need to obtain a sitter or that he has not decompensated to the point where he is unable to participate and make progress with therapy. If it does occur we will move to discharge the patient. Interval History: Patient is participating in therapy and making reasonable progress. Taking rest breaks as needed. -BM. Denies pain, palpitations, dyspnea, cough, N/V, or joint pain. Bladder obstruction/BPH/long-term use of suprapubic tube: Maintain suprapubic tube, monitor urine output, maintain Carballo which is capped, alert Dr. Montana for any changes in status. Continue medications Hypokalemia: Replaced K, Mg wnl. Lower today, increase K, may utilize IV if it does not improve Dehydration: Improved with gentle IV fluids overnight, BUN decreased from 40-29. Will give another round of IV fluids tonight Hypernatremia: Improved with IV fluids, half-normal saline. Continue to monitor Sepsis/urinary tract infection: WBCs increased, Temp increasing, Reconsult ID, appreciate their help. Unfortunately it appears that somehow his SPT was clamped which may be causative for the increase WBCs as noted. Will review labs tomorrow to ensure that they have improved with this corrective action.. Continue Rocephin for total of 10 days as per infectious disease. Monitor CBC on a regular basis. Culture positive for Proteus mirabilis. PE: Continue treatment with Xarelto. 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 Will need to have family come in for training and to see what his baseline is. Hypertension: Continue medications, monitor blood pressure on a regular basis and adjust medications for normotension. Avoid hypotension. All records, vitals, labs and medications were reviewed. No other issues per patient, nursing or therapy. Objective - Exam Narrative Exam: MUSCULOSKELETAL SPECIALTY EXAM CONSTITUTIONAL: Well developed, well nourished, appropriately groomed EENT: Prosthetic left eye. Hearing intact to soft voice RESPIRATORY: Clear to auscultation bilaterally, no increased work of breathing CARDIOVASCULAR: Regular Rate/ Rhythm, no swelling, edema or tenderness in BUE or BLE. All extremities warm. GI: + bowel sounds, soft, NTTP, nondistended. : Suprapubic tube INTEGUMENTARY: Normal, no lesion, rash, masses or bruising noted in extremities. MUSCULOSKELETAL: BUE and BLE normal without defect, crepitus, subluxation, effusion, arthritic changes or TTP. Patient does have bilateral wrist drop and foot drop, otherwise: BUE 4-/5, decreased ROM (unable to perform shoulder abduction past 90 degrees), with normal tone. BLE 4-/5, decreased ROM, with normal tone NEURO: CN 2-12 grossly intact. Sensation intact in all extremities. No tremor noted in 4 extremities. POSTURE and GAIT: Sitting posture good. Balance and gait deferred until seen with therapy (poor balance per report). PSYCH: Alert, oriented x1, confused at times, affect appears normal. Insight appears intact. - Constitutional Vitals: Vital Signs - 12hr 09/27/19 09/28/19 23:06 05:08 Temperature 98.2 F 99.2 F Pulse Rate 90 70 Respiratory 18 18 Rate Blood Pressure 132/58 125/58 O2 Sat by Pulse 98 97 Oximetry - Allied health notes Allied health notes reviewed: nursing, PT, OT, social work - Labs CBC & Chem 7: 09/28/19 06:53 09/28/19 06:53 Labs: Laboratory Results - last 72 hr 09/27/19 09/27/19 09/28/19 07:18 07:18 06:53 WBC 13.6 H 16.1 H RBC 6.30 H 6.21 H Hgb 14.2 13.9 Hct 43.3 43.0 MCV 69 L 69 L MCH 23 L 22 L MCHC 33 32 RDW 15.5 H 15.3 H Plt Count 121 L 146 Add Manual Diff Complete Total Counted 100 Seg Neuts % (Manual) 73.0 H Band Neutrophils % 0 Lymphocytes % (Manual) 12.0 L Reactive Lymphs % (Man) 0 Monocytes % (Manual) 12.0 H Eosinophils % (Manual) 3.0 Basophils % (Manual) 0 Metamyelocytes % 0 Myelocytes % 0 Promyelocytes % 0 Blast Cells % 0 Nucleated RBC % Not Reportable Seg Neutrophils # Man 9.9 H Band Neutrophils # 0.0 Lymphocytes # (Manual) 1.6 Abs React Lymphs (Man) 0.0 Monocytes # (Manual) 1.6 H Eosinophils # (Manual) 0.4 Basophils # (Manual) 0.0 Metamyelocytes # 0.0 Myelocytes # 0.0 Promyelocytes # 0.0 Blast Cells # 0.0 WBC Morphology Not Reportable Hypersegmented Neuts Not Reportable Hyposegmented Neuts Not Reportable Hypogranular Neuts Not Reportable Smudge Cells Not Reportable Toxic Granulation Not Reportable Toxic Vacuolation Not Reportable Dohle Bodies Not Reportable Pelger-Huet Anomaly Not Reportable Terence Rods Not Reportable Platelet Estimate Consistent w auto Clumped Platelets Not Reportable Plt Clumps, EDTA Not Reportable Large Platelets Not Reportable Giant Platelets Not Reportable Platelet Satelliting Not Reportable Plt Morphology Comment Not Reportable RBC Morphology Not Reportable Dimorphic RBCs Not Reportable Polychromasia Not Reportable Hypochromasia 1+ Poikilocytosis Not Reportable Anisocytosis Not Reportable Microcytosis 1+ Macrocytosis Not Reportable Spherocytes Not Reportable Pappenheimer Bodies Not Reportable Sickle Cells Not Reportable Target Cells Few Tear Drop Cells Not Reportable Ovalocytes Not Reportable Helmet Cells Not Reportable Leslie-Peletier Bodies Not Reportable Lancaster Rings Not Reportable Inglis Cells Not Reportable Bite Cells Not Reportable Crenated Cell Not Reportable Elliptocytes Not Reportable Acanthocytes (Spur) Not Reportable Rouleaux Not Reportable Hemoglobin C Crystals Not Reportable Schistocytes Not Reportable Malaria parasites Not Reportable Wei Bodies Not Reportable Hem Pathologist Commnt No Sodium 148 H Potassium 3.4 L Chloride 105.6 Carbon Dioxide 28 Anion Gap 18 BUN 40 H Creatinine 1.2 Estimated GFR > 60 BUN/Creatinine Ratio 33 Glucose 102 H Calcium 8.2 L Magnesium Total Bilirubin 1.00 AST 37 ALT 52 Alkaline Phosphatase 85 Total Protein 4.8 L Albumin 2.8 L Albumin/Globulin Ratio 1.4 09/28/19 06:53 WBC RBC Hgb Hct MCV MCH MCHC RDW Plt Count Add Manual Diff Total Counted Seg Neuts % (Manual) Band Neutrophils % Lymphocytes % (Manual) Reactive Lymphs % (Man) Monocytes % (Manual) Eosinophils % (Manual) Basophils % (Manual) Metamyelocytes % Myelocytes % Promyelocytes % Blast Cells % Nucleated RBC % Seg Neutrophils # Man Band Neutrophils # Lymphocytes # (Manual) Abs React Lymphs (Man) Monocytes # (Manual) Eosinophils # (Manual) Basophils # (Manual) Metamyelocytes # Myelocytes # Promyelocytes # Blast Cells # WBC Morphology Hypersegmented Neuts Hyposegmented Neuts Hypogranular Neuts Smudge Cells Toxic Granulation Toxic Vacuolation Dohle Bodies Pelger-Huet Anomaly Terence Rods Platelet Estimate Clumped Platelets Plt Clumps, EDTA Large Platelets Giant Platelets Platelet Satelliting Plt Morphology Comment RBC Morphology Dimorphic RBCs Polychromasia Hypochromasia Poikilocytosis Anisocytosis Microcytosis Macrocytosis Spherocytes Pappenheimer Bodies Sickle Cells Target Cells Tear Drop Cells Ovalocytes Helmet Cells Leslie-Peletier Bodies Lancaster Rings Inglis Cells Bite Cells Crenated Cell Elliptocytes Acanthocytes (Spur) Rouleaux Hemoglobin C Crystals Schistocytes Malaria parasites Wei Bodies Hem Pathologist Commnt Sodium 142 Potassium 3.3 L Chloride 102.9 Carbon Dioxide 26 Anion Gap 16 BUN 29 H Creatinine 1.0 Estimated GFR > 60 BUN/Creatinine Ratio 29 Glucose 89 Calcium 8.4 Magnesium 2.10 Total Bilirubin AST ALT Alkaline Phosphatase Total Protein Albumin Albumin/Globulin Ratio Assessment and Plan Bladder obstruction/BPH/long-term use of suprapubic tube: Maintain suprapubic tube, monitor urine output, maintain Carballo which is capped, alert Dr. Montana for any changes in status. Continue medications Sepsis/urinary tract infection: Continue Rocephin for total of 10 days as per infectious disease. Monitor CBC on a regular basis and reconsult infectious disease if condition worsens. Culture positive for Proteus mirabilis. ID reconsulted for increasing WBCs as well as slight increase in temperature (however afebrile). Unfortunately ID found that the SPT had been clamped, will monitor labs and vitals for improvement. Discussed with nursing to please not clamp the SPT. PE: Continue treatment with Xarelto. 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 Will need to have family come in for training and to see what his baseline is. Hypertension: Continue medications, monitor blood pressure on a regular basis and adjust medications for normotension. Avoid hypotension. Hyperlipidemia: Continue statin ADL dysfunction: OT will work on improving ability to perform ADLs (including assistive devices) to increase independence and decrease caregiver burden and improve functional transfers and mobility training. Difficulty walking: PT will work on gait training and proper use of assistive devices and advance as appropriate to use of stairs and outside ambulation on uneven surfaces. Unsteadiness on feet: PT will work on improving static and dynamic sitting and standing balance as well as proper use of assistive devices to decrease risk of falls. Abnormality of gait: PT will work to improve safety and efficiency of gait t hrough neuromotor training and gait training along with instruction on proper use of assistive devices. Muscle weakness: PT & OT will work on strengthening exercises to improve functional strength including mixture of closed and open kinetic chain exercises. Debility: PT & OT will work on improving overall functional status to improve participation with ADLs, mobility and social involvement. Fatigue: PT & OT will work on improving endurance through aerobic exercises and therapeutic activity while monitoring patients tolerance for activity and vital signs as needed. DVT ppx: On Xarelto for PE Pain: Continue physical modalities in therapy and pain medications as needed to achieve functional pain control. Sleep: Monitor and address as needed. Bowel: Monitor and address as needed. Appetite: Monitor and address as needed. Discharge planning: Pending therapy progress and care plan meeting. Will continue discussion with therapy team, SW, patient and family. Restrictions/ Precautions: Falls, urinary retention, possible confusion WB status: FWB Functional Hx: ADLs: Likely needed assistance Cognition: Needed assistance Mobility: Rolling walker Barriers to Discharge: Decreased mobility and ability to perform self care, balance deficits, weakness Estimated Length of Stay: 1014 days Discharge Destination: Home with family
[2019-09-28] MEDS: amLODIPine 10 MG TAB PO SCH (12:58)
[2019-09-28] MEDS: POTASSIUM CHLORIDE ER 20 MEQ TAB PO SCH ×2 (12:58→21:28)
[2019-09-28] MEDS: OXYBUTYNIN 5 MG TAB PO SCH ×2 (12:59→20:29)
[2019-09-28] MEDS: cefTRIAXone/NS 2 GM/100 ML 2 GM/100 ML BAG IV SCH (12:59)
[2019-09-28] MEDS: RIVAROXABAN 10 MG TAB PO SCH (12:59)
--- NOTE | 2019-09-28 14:35 | Progress Note ---
Assessment and Plan Cultures: Urine culture mixed 09/21/2019 blood culture: Proteus mirabilis 09/24/2019 blood culture: no growth A/P: 73-year-old male with BPH, neurogenic bladder, hyperlipidemia, prior CVA, indwelling suprapubic catheter admitted to the hospital with weakness: #Sepsis secondary to Proteus bacteremia, source is urinary tract. #Bilateral hydronephrosis secondary to clogged suprapubic catheter: was seen by urology #Acute kidney injury: resolved #No concern for pneumonia based on lower lung cuts of abdominal CT scan Recs: d/w RN to ensure urine is draining. It seems his SPC was clamped. Rise in WBC could be related to that Ok to continue Ceftriaxone for now, end date was 10/01/2019 recheck CBC in AM Saray Murphy MD, FACP [facility] ([facility] C: [phone] O: [phone] F: [phone] Subjective Date of service: 09/28/19 Principal diagnosis: Debility with bilateral foot and wrist drop Interval history: Patient evaluated with RN, it seems his suprapubic catheter was clamped, patient without any indwelling Carballo catheter. No fever. Patient otherwise feels fine. ID reconsulted due to increasing WBC. Objective - Exam Narrative Exam: Constitutional: awake, alert Head, Ears, Nose: Normocephalic, atraumatic. External ears, nose normal Eyes: Conjunctivae/corneas clear. No icterus. No ptosis. Neck: Supple, no meningeal signs Cardiovascular: S1, S2 normal. Respiratory: Good air entry, clear to auscultation bilaterally GI: Soft, non-tender; bowel sounds normal. No peritoneal signs. SPC + Musculoskeletal: No pedal edema, no cyanosis. Skin: No rash or abscess Hem/Lymphatic: No palpable cervical or supraclavicular nodes. No lymphangitis Psych: no agitation Neurological: Awake, alert. - Constitutional Vitals: Vital Signs Temp Pulse Resp BP Pulse Ox 98.2 F 84 19 130/60 99 09/28/19 12:47 09/28/19 12:58 09/28/19 12:47 09/28/19 12:58 09/28/19 12:47 Temperature -Last 24 Hours Temperature 98.2 F Temperature 98.3 F Temperature 99.2 F Temperature 98.2 F Temperature 99.0 F Temperature 98.6 F - Labs CBC & Chem 7: 09/28/19 06:53 09/28/19 06:53 Labs: Abnormal lab results 09/28/19 09/28/19 Range/Units 06:53 06:53 WBC 16.1 H (4.5-11.0) K/mm3 RBC 6.21 H (3.65-5.03) M/mm3 MCV 69 L (84-94) fl MCH 22 L (28-32) pg RDW 15.3 H (13.2-15.2) % Potassium 3.3 L (3.6-5.0) mmol/L BUN 29 H (9-20) mg/dL
[2019-09-28] MEDS: TAMSULOSIN 0.4 MG CAP PO SCH (21:28)
[2019-09-29] MEDS: SODIUM CHLORIDE 0.45% 1000 ML 1,000 ML IV SCH (02:30)
[2019-09-29 08:26] LABS: Hematocrit 37.7 % (35.5-45.6); Hemoglobin 12.3 gm/dl (11.8-15.2); Mean Corpuscular HGB Conc 33 % (32-34); Mean Corpuscular Volume 69 fl (84-94); Platelet Count 184 K/mm3 (140-440); Red Blood Count 5.49 M/mm3 (3.65-5.03); Red Cell Distribution Width 15.2 % (13.2-15.2)
[2019-09-29 08:38] LABS: BUN/Creatinine Ratio 23; Blood Urea Nitrogen 21 mg/dL (9-20); Calcium 8.1 mg/dL (8.4-10.2); Hemolysis Index 3
[2019-09-29] MEDS: OXYBUTYNIN 5 MG TAB PO SCH ×4 (09:40→20:53)
[2019-09-29] MEDS: POTASSIUM CHLORIDE ER 20 MEQ TAB PO SCH ×2 (09:40→21:02)
[2019-09-29] MEDS: amLODIPine 10 MG TAB PO SCH (09:40)
[2019-09-29] MEDS: RIVAROXABAN 10 MG TAB PO SCH (09:45)
[2019-09-29] MEDS: cefTRIAXone/NS 2 GM/100 ML 2 GM/100 ML BAG IV SCH (10:00)
--- NOTE | 2019-09-29 10:37 | Progress Note ---
Assessment and Plan Cultures: Urine culture mixed 09/21/2019 blood culture: Proteus mirabilis 09/24/2019 blood culture: no growth A/P: 73-year-old male with BPH, neurogenic bladder, hyperlipidemia, prior CVA, indwelling suprapubic catheter admitted to the hospital with weakness: #Sepsis secondary to Proteus bacteremia, source is urinary tract. #Bilateral hydronephrosis secondary to clogged suprapubic catheter: was seen by urology #Acute kidney injury: resolved Recs: WBC downtrending. Ensure urine continues to drain well Ok to continue Ceftriaxone, end date for abx: 10/01/2019 recheck CBC in AM Saray Murphy MD, FACP [facility] ([facility] C: [phone] O: [phone] F: [phone] Subjective Date of service: 09/29/19 Principal diagnosis: Debility with bilateral foot and wrist drop Interval history: No fever. No new complaints. Urine draining well. Sitting in his wheel chair. Objective - Exam Narrative Exam: Constitutional: awake, alert Head, Ears, Nose: Normocephalic, atraumatic. External ears, nose normal Eyes: Conjunctivae/corneas clear. No icterus. No ptosis. Neck: Supple, no meningeal signs Cardiovascular: S1, S2 normal. Respiratory: Good air entry, clear to auscultation bilaterally GI: Soft, non-tender; bowel sounds normal. No peritoneal signs. SPC + Musculoskeletal: No pedal edema, no cyanosis. Skin: No rash or abscess Hem/Lymphatic: No palpable cervical or supraclavicular nodes. No lymphangitis Psych: no agitation Neurological: Awake, alert. - Constitutional Vitals: Vital Signs Temp Pulse Resp BP Pulse Ox 98.5 F 72 18 109/63 95 09/29/19 07:21 09/29/19 07:21 09/29/19 07:21 09/29/19 07:21 09/29/19 07:21 Temperature -Last 24 Hours Temperature 98.5 F Temperature 98.9 F Temperature 99.4 F Temperature 99.7 F Temperature 98.2 F - Labs CBC & Chem 7: 09/29/19 07:38 09/29/19 07:38 Labs: Abnormal lab results 09/29/19 09/29/19 Range/Units 07:38 07:38 WBC 15.0 H (4.5-11.0) K/mm3 RBC 5.49 H (3.65-5.03) M/mm3 MCV 69 L (84-94) fl MCH 22 L (28-32) pg Potassium 3.3 L (3.6-5.0) mmol/L BUN 21 H (9-20) mg/dL Calcium 8.1 L (8.4-10.2) mg/dL
[2019-09-29] MEDS: TAMSULOSIN 0.4 MG CAP PO SCH (20:53)
--- NOTE | 2019-09-29 22:15 | IRU Plan of Care ---
Interdisciplinary Plan of Care - IP IRU INTERDISCIPLINARY PLAN: [facility] Inpatient Rehab Unit Plan of Care IRU Interdisciplinary Care Plan Start: 09/27/19 00:32 Freq: Admission then PRN Status: Active Protocol: Document 09/29/19 15:48 TH (Rec: 09/29/19 16:14 TH [id number]) Interdisciplinary Problem List Interdisciplinary Problem List Interdisciplinary Problem List Impaired Bathing/Grooming, Query Text:Answers will Trigger Problems Impaired Dressing,Impaired and Outcomes on Worklist. Mobility,Impaired Transfers, Impaired Toileting,Impaired Comprehension,Impaired Problem Solving,Impaired Memory, Knowledge Deficits,Discharge Concerns,Impaired Safety, Impaired Cardiovascular System IRU Interdisciplinary Care Plan Therapy Services Therapy Services Will Include: Physical Therapy,Occupational Query Text:Patient will be seen for a Therapy minimum of 3 hours of daily therapy 5 out of 7 days a week. Therapy intensity may be adjusted within a 7 consecutive day period to effectively serve the individual needs of the patient. Treatment Frequency/Intensity/Duration Treatment Frequency 5 days per week Treatment Intensity 3 hours per day Treatment Duration 7-14 days Problem Area: Eating/Swallowing Eating/Swallowing Outcomes Eating/Swallowing Interventions Problem Area: Bathing/Grooming Bathing/Grooming Outcomes Improve Kathryn w/ Grooming,Improve Kathryn w/ Bathing Bathing/Grooming Interventions ADL Training,Use of Assistive Devices,Therapeutic Exercise, Therapeutic Activity, Neuromuscular Re-Education, Balance Work,Activity Tolerance Work,Patient/ Caregiver Education Problem Area: Dressing Dressing Outcomes Improve Kathryn w/ UB Dressing,Improve Kathryn w/ LB Dressing Dressing Interventions ADL Training,Use of Assistive Devices,Neuromuscular Re- Education,Therapeutic Exercise ,Balance Work,Patient/ Caregiver Education Problem Area: Mobility Mobility Outcomes Improve Kathryn w/ Bed Mobility,Improve Kathryn w/ Ambulation,Improve Kathryn w/ Stairs/Curb, Improve Kathryn w/ Wheelchair Mobility Interventions Therapeutic Exercise, Neuromuscular Re-Ed.,Activity Tolerance Work,Use of Assistive Devices,Patient/ Caregiver Education,Bed Mobility Work,Gait Training,W/ C Mobility Work Problem Area: Transfers Transfers Outcomes Improve Kathryn w/ Bed Transfers,Improve Kathryn w/ Toilet Transfers,Improve Kathryn w/ Tub/Shower Transfers,Improve Kathryn w/ Car Transfers Transfers Interventions Transfer Training,Therapeutic Exercise,Neuromuscular Re- Education,Activity Tolerance Work,Use of Assistive Devices, Patient/Caregiver Education Problem Area: Bowel/Bladder Managment Bowel/Bladder Outcomes Bowel/Bladder Interventions Problem Area: Toileting Toileting Outcomes Improve Kathryn w/ Toileting Toileting Interventions ADL Training,Balance Work,Use of Assistive Devices,Patient/ Caregiver Education Problem Area: Nutrition Nutrition Outcomes Nutrition Interventions Problem Area: Comprehension Comprehension Outcomes Comprehension Interventions Problem Area: Expression Expression Outcomes Expression Interventions Problem Area: Problem Solving Problem Solving Outcomes Problem Solving Interventions Problem Area: Memory Memory Outcomes Memory Interventions Problem Area: Pain Management Pain Management Outcomes Pain Management Interventions Problem Area: Knowledge Deficits Knowledge Deficits Outcomes Knowledge Deficits Interventions Problem Area: Skin/Tissue Integrity Skin/Tissue Integrity Outcomes Skin/Tissue Integrity Interventions Problem Area: Social Interaction Social Interaction Outcomes Social Interaction Interventions Problem Area: Adjustment to Disability Adjustment to Disability Outcomes Adjustment to Disability Interventions Problem Area: Discharge Concerns Discharge Concerns Outcomes Discharge w/ Necessary Equipment,Have Home Health/ Outpatient Services Discharge Concerns Interventions Discharge Planning,Equipment Assessment, Acquisition and Placement,Family/Caregiver Training Problem Area: Community Reintegration Community Reintegration Outcomes Community Reintegration Interventions Problem Area: Home Management Home Management Outcomes Home Management Interventions Problem Area: Safety Safety Outcomes Provide Safe Environment, Perform Selfcare Safely, Demonstrate Good Safety w/ Transfers/Mobility Safety Interventions Identify Fall Risk,Burke Pt. to Environment,Reduce Environmental Hazards,Neuro Check Assessment,Implement Mechanical Devices, i.e. Chair Alarm (Post Fall Update),Re- Educate Patient/Caregiver for Safety (Post Fall Update) Problem Area: Medication Education Medication Education Outcomes Medication Education Interventions Problem Area: Diabetes Education Diabetes Education Outcomes Diabetes Education Interventions Problem Area: Oxygenation Oxygenation Outcomes Oxygenation Interventions Problem Area: Cardiovascular Cardiovascular Outcomes Maintain or Improve Cardiovascular Status Cardiovascular Interventions Assess Vital Signs at least Every 4 hours Physician Only Medical Prognosis and Rehabilitation Potential (Completed by Physician) Fair medical prognosis, fair rehab potential. This plan of care has been developed based on the findings from the pre- admission assessment, post admission physician evaluation, information gathered from the assessments from all therapy disciplines and other pertinent clinicians. The plan of care has been reviewed and discussed in collaboration with the interdisciplinary team. The plan of care will be reviewed and updated at least weekly.
[2019-09-30 08:43] LABS: Hematocrit 39.5 % (35.5-45.6); Hemoglobin 12.8 gm/dl (11.8-15.2); Mean Corpuscular HGB Conc 32 % (32-34); Platelet Count 266 K/mm3 (140-440); Red Blood Count 5.75 M/mm3 (3.65-5.03); Red Cell Distribution Width 15.3 % (13.2-15.2)
[2019-09-30 08:46] LABS: Mean Corpuscular Volume 69 fl (84-94)
[2019-09-30 09:07] LABS: BUN/Creatinine Ratio 24; Blood Urea Nitrogen 19 mg/dL (9-20); Calcium 8.5 mg/dL (8.4-10.2); Hemolysis Index 93
[2019-09-30] MEDS: OXYBUTYNIN 5 MG TAB PO SCH ×3 (09:34→22:46)
[2019-09-30] MEDS: RIVAROXABAN 10 MG TAB PO SCH (09:34)
[2019-09-30] MEDS: cefTRIAXone/NS 2 GM/100 ML 2 GM/100 ML BAG IV SCH (09:34)
[2019-09-30] MEDS: POTASSIUM CHLORIDE ER 20 MEQ TAB PO SCH ×2 (09:34→22:46)
[2019-09-30] MEDS: amLODIPine 10 MG TAB PO SCH (09:35)
--- NOTE | 2019-09-30 12:56 | Progress Note ---
Assessment and Plan Cultures: Urine culture mixed 09/21/2019 blood culture: Proteus mirabilis 09/24/2019 blood culture: no growth A/P: 73-year-old male with BPH, neurogenic bladder, hyperlipidemia, prior CVA, indwelling suprapubic catheter admitted to the hospital with weakness: #Sepsis secondary to Proteus bacteremia, source is urinary tract. #Bilateral hydronephrosis secondary to clogged suprapubic catheter: was seen by urology #Acute kidney injury: resolved Recs: WBC downtrending Continue Ceftriaxone x 2 more doses, end date for abx: 10/01/2019 Saray Murphy MD, FACP [facility] C: [phone] O: [phone] F: [phone] Subjective Date of service: 09/30/19 Principal diagnosis: Debility with bilateral foot and wrist drop Interval history: No fever. No new complaints. Urine draining well. Lying in bed. Objective - Exam Narrative Exam: Constitutional: awake, alert Head, Ears, Nose: Normocephalic, atraumatic. External ears, nose normal Eyes: Conjunctivae/corneas clear. No icterus. No ptosis. Neck: Supple, no meningeal signs Cardiovascular: S1, S2 normal. Respiratory: Good air entry, clear to auscultation bilaterally GI: Soft, non-tender; bowel sounds normal. No peritoneal signs. SPC + Musculoskeletal: No pedal edema, no cyanosis. Skin: No rash or abscess Hem/Lymphatic: No palpable cervical or supraclavicular nodes. No lymphangitis Psych: no agitation Neurological: Awake, alert. - Constitutional Vitals: Vital Signs Temp Pulse Resp BP Pulse Ox 98.3 F 65 18 117/64 99 09/30/19 06:40 09/30/19 09:35 09/30/19 06:40 09/30/19 09:35 09/30/19 06:40 Temperature -Last 24 Hours Temperature 98.3 F Temperature 98.8 F Temperature 99.3 F - Labs CBC & Chem 7: 09/30/19 08:27 09/30/19 08:27 Labs: Abnormal lab results 09/30/19 Range/Units 08:27 WBC 14.6 H (4.5-11.0) K/mm3 RBC 5.75 H (3.65-5.03) M/mm3 MCV 69 L (84-94) fl MCH 22 L (28-32) pg RDW 15.3 H (13.2-15.2) %
[2019-09-30] MEDS: oxyCODONE /ACETAMINOPHEN 5-325MG TAB PO PRN (22:46)
[2019-09-30] MEDS: TAMSULOSIN 0.4 MG CAP PO SCH (22:46)
[2019-10-01 07:21] LABS: Hematocrit 37.9 % (35.5-45.6); Hemoglobin 12.4 gm/dl (11.8-15.2); Mean Corpuscular HGB Conc 33 % (32-34); Platelet Count 268 K/mm3 (140-440); Red Cell Distribution Width 15.1 % (13.2-15.2)
[2019-10-01 07:23] LABS: Mean Corpuscular Volume 69 fl (84-94)
[2019-10-01 07:38] LABS: BUN/Creatinine Ratio 21; Blood Urea Nitrogen 17 mg/dL (9-20); Calcium 8.6 mg/dL (8.4-10.2); Hemolysis Index 15
[2019-10-01] MEDS: OXYBUTYNIN 5 MG TAB PO SCH ×3 (10:57→21:38)
[2019-10-01] MEDS: amLODIPine 10 MG TAB PO SCH (10:58)
[2019-10-01] MEDS: POTASSIUM CHLORIDE ER 20 MEQ TAB PO SCH (10:58)
[2019-10-01] MEDS: cefTRIAXone/NS 2 GM/100 ML 2 GM/100 ML BAG IV SCH (10:58)
[2019-10-01] MEDS: RIVAROXABAN 10 MG TAB PO SCH (10:58)
--- NOTE | 2019-10-01 12:16 | Progress Note ---
Subjective Date of service: 10/01/19 Principal diagnosis: Debility with bilateral foot and wrist drop Interval history: 73-year-old male admitted on 09/21/2023 weakness and falling. Patient is a poor historian. After further work-up he had findings suspicious for possible pneumonia and or COVID. He has a previous suprapubic catheter that apparently was clogged as well. Could not be flushed and urology (Dr. Montana) was consulted for placement of Carballo catheter which remains (plugged). He does have neurogenic bladder and BPH per reports. Per notes the plan is to plug the Carballo and go home with the larger SPT open. Urinalysis showed Proteus Mirabilis infection and infectious disease was consulted. He was placed on Rocephin for total of 10 days unless discharged home at which point he would be converted to Cipro. Due to the blocked suprapubic tube he also developed acute kidney injury and was seen by nephrology as well. Medications were dosed on renal basis. CT abdomen showed moderate to severe bilateral hydronephrosis. Creatinine improved once the obstructive uropathy was cleared. Initial chest x-ray showed that there was a left lower lobe pneumonia (not appreciated by my review of imaging) and further investigation into the possible pneumonia as seen on the CT abdomen pelvis did not capture any pneumonia on the chest images captured. He has a history of a pulmonary embolus and remains on Xarelto. He has signs and symptoms of previous neurological damage including a left facial droop and bilateral wrist and foot drop along with slowed speech and interaction. Records not completely clear on causative nature of these changes. Was able to look back in the historical records going back several years and did see another CT head showed a lacunar infarct. Patient also has sickle cell trait per records. Patient was previously independent and able to take care of himself although his did perform all of the household duties including cooking, driving and cleaning (per record review). There was a brief entry by nursing that the patient was placed on restraints due to pulling at IVs and catheters. This was then discontinued. Late last night just prior to being transferred there is also a nursing note stating that the patient is confused, hallucinating and talking to people who were not there. We will have to monitor the patient closely for his own safety and make sure that we do not need to obtain a sitter or that he has not decompensated to the point where he is unable to participate and make progress with therapy. If it does occur we will move to discharge the patient. Interval History: Patient is participating in therapy and making reasonable progress. Taking rest breaks as needed. -BM. Denies pain, palpitations, dyspnea, cough, N/V, or joint pain. For some reason, patient has telemetry monitoring on. Was not ordered on his admission to rehab, likely carried over from acute side without being removed. Will discontinue. 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 Bladder obstruction/BPH/long-term use of suprapubic tube: Maintain suprapubic tube, monitor urine output, maintain Carballo which is capped, alert Dr. Montana for any changes in status. Continue medications. Nursing reports that tube was resistant to output over the weekend giving the patient distention and abdominal pain, improved with flushing. Will order every shift flushing with 10 to 20 cc normal saline Hypokalemia: Potassium now normalized. Continue to monitor Dehydration: Improved with gentle IV fluids. BUN now normalized Hypernatremia: Normalized after half-normal saline. Continue to monitor Sepsis/urinary tract infection: Reconsulted ID, appreciate their help. Last day of Rocephin as per infectious disease. Monitor CBC on a regular basis. Culture positive for Proteus mirabilis. PE: Continue treatment with Xarelto. 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 Will need to have family come in for training and to see what his baseline is. Hypertension: Continue medications, monitor blood pressure on a regular basis and adjust medications for normotension. Avoid hypotension. All records, vitals, labs and medications were reviewed. No other issues per patient, nursing or therapy. Objective - Exam Narrative Exam: MUSCULOSKELETAL SPECIALTY EXAM CONSTITUTIONAL: Well developed, well nourished, appropriately groomed EENT: Prosthetic left eye. Hearing intact to soft voice RESPIRATORY: Clear to auscultation bilaterally, no increased work of breathing CARDIOVASCULAR: Regular Rate/ Rhythm, no swelling, edema or tenderness in BUE or BLE. All extremities warm. GI: + bowel sounds, soft, NTTP, nondistended. : Suprapubic tube INTEGUMENTARY: Normal, no lesion, rash, masses or bruising noted in extremities. MUSCULOSKELETAL: BUE and BLE normal without defect, crepitus, subluxation, effusion, arthritic changes or TTP. Patient does have bilateral wrist drop and foot drop, otherwise: BUE 4-/5, decreased ROM (unable to perform shoulder abduction past 90 degrees), with normal tone. BLE 4-/5, decreased ROM, with normal tone NEURO: CN 2-12 grossly intact. Sensation intact in all extremities. No tremor noted in 4 extremities. POSTURE and GAIT: Sitting posture good. Balance and gait deferred until seen with therapy (poor balance per report). PSYCH: Alert, oriented x1, confused at times, affect appears normal. Insight appears intact. - Constitutional Vitals: Vital Signs - 12hr 10/01/19 07:46 Temperature 98.0 F Pulse Rate 65 Respiratory 18 Rate Blood Pressure 135/65 O2 Sat by Pulse 100 Oximetry - Allied health notes Allied health notes reviewed: nursing, PT, OT FIMS assessment as documented by PT/OT/ST: Dressing-Upper body Patient retrieves clothing No items: Patient applies/removes UE No prosthesis or orthosis: Upper Body Dressing FIM Score 3. Moderate Assistance (Patient = 50% or more) Dressing-lower body Patient retrieves clothing No items: Patient applies/removes LE No prosthesis or orthosis: Lower Body Dressing FIM Score 2. Maximal Assistance (Patient = 25% or more) - Labs CBC & Chem 7: 10/01/19 07:00 10/01/19 07:00 Labs: Laboratory Results - last 72 hr 09/29/19 09/29/19 09/30/19 07:38 07:38 08:27 WBC 15.0 H 14.6 H RBC 5.49 H 5.75 H Hgb 12.3 12.8 Hct 37.7 39.5 MCV 69 L 69 L MCH 22 L 22 L MCHC 33 32 RDW 15.2 15.3 H Plt Count 184 266 Sodium 142 Potassium 3.3 L Chloride 103.0 Carbon Dioxide 28 Anion Gap 14 BUN 21 H Creatinine 0.9 Estimated GFR > 60 BUN/Creatinine Ratio 23 Glucose 93 Calcium 8.1 L 09/30/19 10/01/19 10/01/19 08:27 07:00 07:00 WBC 11.7 H RBC 5.50 H Hgb 12.4 Hct 37.9 MCV 69 L MCH 23 L MCHC 33 RDW 15.1 Plt Count 268 Sodium 140 143 Potassium 4.1 D 4.0 Chloride 102.5 107.4 H Carbon Dioxide 24 25 Anion Gap 18 15 BUN 19 17 Creatinine 0.8 0.8 Estimated GFR > 60 > 60 BUN/Creatinine Ratio 24 21 Glucose 84 90 Calcium 8.5 8.6 Assessment and Plan Bladder obstruction/BPH/long-term use of suprapubic tube: Maintain suprapubic tube, monitor urine output, maintain Carballo which is capped, alert Dr. Montana for any changes in status. Continue medications, flush every shift with normal saline. Sepsis/urinary tract infection: Continue Rocephin for total of 10 days as per infectious disease. Monitor CBC on a regular basis and reconsult infectious disease if condition worsens. Culture positive for Proteus mirabilis. PE: Continue treatment with Xarelto. Hypokalemia: Resolved with replacement. Magnesium within normal limits. 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 Will need to have family come in for training and to see what his baseline is. Hypertension: Continue medications, monitor blood pressure on a regular basis and adjust medications for normotension. Avoid hypotension. Hyperlipidemia: Continue statin ADL dysfunction: OT will work on improving ability to perform ADLs (including assistive devices) to increase independence and decrease caregiver burden and improve functional transfers and mobility training. Difficulty walking: PT will work on gait training and proper use of assistive devices and advance as appropriate to use of stairs and outside ambulation on uneven surfaces. Unsteadiness on feet: PT will work on improving static and dynamic sitting and standing balance as well as proper use of assistive devices to decrease risk of falls. Abnormality of gait: PT will work to improve safety and efficiency of gait through neuromotor training and gait training along with instruction on proper use of assistive devices. Muscle weakness: PT & OT will work on strengthening exercises to improve functional strength including mixture of closed and open kinetic chain exercises. Debility: PT & OT will work on improving overall functional status to improve participation with ADLs, mobility and social involvement. Fatigue: PT & OT will work on improving endurance through aerobic exercises and therapeutic activity while monitoring patients tolerance for activity and vital signs as needed. DVT ppx: On Xarelto for PE Pain: Continue physical modalities in therapy and pain medications as needed to achieve functional pain control. Sleep: Monitor and address as needed. Bowel: Monitor and address as needed. Appetite: Monitor and address as needed. Discharge planning: Pending therapy progress and care plan meeting. Will continue discussion with therapy team, SW, patient and family. Restrictions/ Precautions: Falls, urinary retention, possible confusion WB status: FWB Functional Hx: ADLs: Likely needed assistance Cognition: Needed assistance Mobility: Rolling walker Barriers to Discharge: Decreased mobility and ability to perform self care, balance deficits, weakness Estimated Length of Stay: 1014 days Discharge Destination: Home with family
[2019-10-01] MEDS ORDERED: HYPROMELLOSE 0.5% OPHTH SOLN 15 ML OU PRN (12:23)
--- NOTE | 2019-10-01 12:27 | Progress Note ---
Assessment and Plan Cultures: Urine culture mixed 09/21/2019 blood culture: Proteus mirabilis 09/24/2019 blood culture: no growth A/P: 73-year-old male with BPH, neurogenic bladder, hyperlipidemia, prior CVA, indwelling suprapubic catheter admitted to the hospital with weakness: #Sepsis secondary to Proteus bacteremia, source is urinary tract. Resolved. #Bilateral hydronephrosis secondary to clogged suprapubic catheter: was seen by urology. Urine draining well. #Acute kidney injury: resolved. Recs: Last day of Ceftriaxone today ID will sign off. Please call with questions. Saray Murphy MD, FACP [facility] ([facility]) C: [phone] O: [phone] F: [phone] Subjective Date of service: 10/01/19 Principal diagnosis: Debility with bilateral foot and wrist drop Interval history: No new complaints. Urine draining well. Sitting in a chair, eating lunch. Objective - Exam Narrative Exam: Constitutional: awake, alert Head, Ears, Nose: Normocephalic, atraumatic. External ears, nose normal Eyes: Conjunctivae/corneas clear. No icterus. No ptosis. Neck: Supple, no meningeal signs Cardiovascular: S1, S2 normal. Respiratory: Good air entry, clear to auscultation bilaterally GI: Soft, non-tender; bowel sounds normal. No peritoneal signs. SPC + Musculoskeletal: No pedal edema, no cyanosis. Skin: No rash or abscess Hem/Lymphatic: No palpable cervical or supraclavicular nodes. No lymphangitis Psych: no agitation Neurological: Awake, alert. - Constitutional Vitals: Vital Signs Temp Pulse Resp BP Pulse Ox 98.0 F 65 18 135/65 100 10/01/19 07:46 10/01/19 07:46 10/01/19 07:46 10/01/19 07:46 10/01/19 07:46 Temperature -Last 24 Hours Temperature 98.0 F Temperature 98.6 F Temperature 98.6 F - Labs CBC & Chem 7: 10/01/19 07:00 10/01/19 07:00 Labs: Abnormal lab results 10/01/19 10/01/19 Range/Units 07:00 07:00 WBC 11.7 H (4.5-11.0) K/mm3 RBC 5.50 H (3.65-5.03) M/mm3 MCV 69 L (84-94) fl MCH 23 L (28-32) pg Chloride 107.4 H (98-107) mmol/L
[2019-10-01] MEDS: TAMSULOSIN 0.4 MG CAP PO SCH (21:38)
[2019-10-02 08:00] LABS: Hematocrit 36.5 % (35.5-45.6); Mean Corpuscular HGB Conc 33 % (32-34); Platelet Count 298 K/mm3 (140-440); Red Blood Count 5.26 M/mm3 (3.65-5.03); Red Cell Distribution Width 15.2 % (13.2-15.2)
[2019-10-02 08:01] LABS: Mean Corpuscular Volume 69 fl (84-94)
[2019-10-02 08:10] LABS: Blood Urea Nitrogen 16 mg/dL (9-20); Calcium 8.6 mg/dL (8.4-10.2); Hemolysis Index 11
[2019-10-02] MEDS: RIVAROXABAN 10 MG TAB PO SCH (08:10)
[2019-10-02] MEDS: amLODIPine 10 MG TAB PO SCH (08:10)
[2019-10-02] MEDS: OXYBUTYNIN 5 MG TAB PO SCH ×3 (08:10→21:09)
[2019-10-02 08:21] LABS: BUN/Creatinine Ratio 23
[2019-10-02] MEDS: cefTRIAXone/NS 2 GM/100 ML 2 GM/100 ML BAG IV SCH (09:42)
[2019-10-02] MEDS ORDERED: SODIUM CHLORIDE 0.9% 250ML 250 ML ONE (09:50)
--- NOTE | 2019-10-02 10:18 | Progress Note ---
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 Patient is a poor historian. After further work-up he had findings suspicious for possible pneumonia and or COVID. He has a previous suprapubic catheter that apparently was clogged as well. Could not be flushed and urology (Dr. [place]) was consulted for placement of Carballo catheter which remains (plugged). He does have neurogenic bladder and BPH per reports. Per notes the plan is to plug the Carballo and go home with the larger SPT open. Urinalysis showed Proteus Mirabilis infection and infectious disease was consulted. He was placed on Rocephin for total of 10 days unless discharged home at which point he would be converted to Cipro. Due to the blocked suprapubic tube he also developed acute kidney injury and was seen by nephrology as well. Medications were dosed on renal basis. CT abdomen showed moderate to severe bilateral hydronephrosis. Creatinine improved once the obstructive uropathy was cleared. Initial chest x-ray showed that there was a left lower lobe pneumonia (not appreciated by my review of imaging) and further investigation into the possible pneumonia as seen on the CT abdomen pelvis did not capture any pneumonia on the chest images captured. He has a history of a pulmonary embolus and remains on Xarelto. He has signs and symptoms of previous neurological damage including a left facial droop and bilateral wrist and foot drop along with slowed speech and interaction. Records not completely clear on causative nature of these changes. Was able to look back in the historical records going back several years and did see another CT head showed a lacunar infarct. Patient also has sickle cell trait per records. Patient was previously independent and able to take care of himself although his did perform all of the household duties including cooking, driving and cleaning (per record review). There was a brief entry by nursing that the patient was placed on restraints due to pulling at IVs and catheters. This was then discontinued. Late last night just prior to being transferred there is also a nursing note stating that the patient is confused, hallucinating and talking to people who were not there. We will have to monitor the patient closely for his own safety and make sure that we do not need to obtain a sitter or that he has not decompensated to the point where he is unable to participate and make progress with therapy. If it does occur we will move to discharge the patient. Interval History: Patient is participating in therapy and making reasonable progress. Taking rest breaks as needed. +BM. Denies pain, palpitations, dyspnea, cough, N/V, or joint pain. Patient is stating today that he wants to go home. Will attempt to ensure that we have a safe discharge. Will need to contact family to ensure that they are able to care for him at home and his current condition. A good portion of his issues are chronic in nature, however we are attempting to improve his function and safety. We will moved to get family in for family t raining as soon as possible to allow them to see what he is doing and to guide us and our treatment goals. Bladder obstruction/BPH/long-term use of suprapubic tube: Maintain suprapubic tube, monitor urine output, maintain Carballo which is capped, alert Dr. [place] for changes in status. Continue medications. Nursing reports that tube was resistant to output over the weekend giving the patient distention and abdominal pain, improved with flushing. Will order every shift flushing with 10 to 20 cc normal saline Hypokalemia: Potassium now normalized. Continue to monitor Dehydration: Improved with gentle IV fluids. BUN now normalized Hypernatremia: Normalized after half-normal saline. Continue to monitor Sepsis/urinary tract infection: Reconsulted ID, appreciate their help. Last day of Rocephin as per infectious disease, will continue for a few more days as the patient's white count is again elevating. Remains afebrile. Monitor CBC on a regular basis. Culture positive for Proteus mirabilis. PE: Continue treatment with Xarelto. 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 Will need to have family come in for training and to see what his baseline is. Hypertension: Continue medications, monitor blood pressure on a regular basis and adjust medications for normotension. Avoid hypotension. Patient discussed today during team conference. Making progress with therapy and would likely be a good candidate for utilizing orthotics to improve function. Uncertain if patient is willing to do this. Initially we set a discharge date for October 10, however patient is now saying that he wants to go home as quickly as possible. Will attempt to get family in for family tra ining to see if that he is back to baseline and to ensure that they are able to work with him. We are not going to be able to fix long-term chronic issues however with the bilateral wrist drop and bilateral foot drop we could absolutely improve function by utilizing orthotics if the patient were open to this. We will continue to discussion and move forward accordingly. All records, vitals, labs and medications were reviewed. No other issues per patient, nursing or therapy. Objective - Exam Narrative Exam: MUSCULOSKELETAL SPECIALTY EXAM CONSTITUTIONAL: Well developed, well nourished, appropriately groomed EENT: Prosthetic left eye. Hearing intact to soft voice RESPIRATORY: Clear to auscultation bilaterally, no increased work of breathing CARDIOVASCULAR: Regular Rate/ Rhythm, no swelling, edema or tenderness in BUE or BLE. All extremities warm. GI: + bowel sounds, soft, NTTP, nondistended. : Suprapubic tube INTEGUMENTARY: Normal, no lesion, rash, masses or bruising noted in extremities. MUSCULOSKELETAL: BUE and BLE normal without defect, crepitus, subluxation, effusion, arthritic changes or TTP. Patient does have bilateral wrist drop and foot drop, unable to grasp/make a fist otherwise: BUE 4-/5, decreased ROM (unable to perform shoulder abduction past 90 degrees), with normal tone. BLE 4-/5, decreased ROM, with normal tone NEURO: CN 2-12 grossly intact. Sensation intact in all extremities. No tremor noted in 4 extremities. POSTURE and GAIT: Sitting posture good. Balance and gait deferred until seen with therapy (poor balance per report). PSYCH: Alert, oriented x1, confused at times, affect appears normal. Insight appears intact. - Constitutional Vitals: Vital Signs - 12hr 10/01/19 10/02/19 10/02/19 23:09 05:18 07:16 Temperature 99.0 F 98.3 F 98.2 F Pulse Rate 62 70 69 Respiratory 18 18 18 Rate Blood Pressure 126/63 135/71 125/60 O2 Sat by Pulse 97 100 100 Oximetry - Allied health notes Allied health notes reviewed: nursing, PT, OT FIMS assessment as documented by PT/OT/ST: Dressing-Upper body Patient retrieves clothing No items: Patient applies/removes UE No prosthesis or orthosis: Upper Body Dressing FIM Score 3. Moderate Assistance (Patient = 50% or more) Dressing-lower body Patient retrieves clothing No items: Patient applies/removes LE No prosthesis or orthosis: Lower Body Dressing FIM Score 2. Maximal Assistance (Patient = 25% or more) - Labs CBC & Chem 7: 10/02/19 07:27 10/02/19 07:27 Labs: Laboratory Results - last 72 hr 09/30/19 09/30/19 10/01/19 08:27 08: 07:00 WBC 14.6 H 11.7 H RBC 5.75 H 5.50 H Hgb 12.8 12.4 Hct 39.5 37.9 MCV 69 L 69 L MCH 22 L 23 L MCHC 32 33 RDW 15.3 H 15.1 Plt Count 266 268 Sodium 140 Potassium 4.1 D Chloride 102.5 Carbon Dioxide 24 Anion Gap 18 BUN 19 Creatinine 0.8 Estimated GFR > 60 BUN/Creatinine Ratio 24 Glucose 84 Calcium 8.5 10/01/19 10/02/19 10/02/19 07:00 07:27 07:27 WBC 12.2 H RBC 5.26 H Hgb 12.0 Hct 36.5 MCV 69 L MCH 23 L MCHC 33 RDW 15.2 Plt Count 298 Sodium 143 140 Potassium 4.0 4.0 Chloride 107.4 H 106.8 Carbon Dioxide 25 23 Anion Gap 15 14 BUN 17 16 Creatinine 0.8 0.7 L Estimated GFR > 60 > 60 BUN/Creatinine Ratio 21 23 Glucose 90 95 Calcium 8.6 8.6 Assessment and Plan Bladder obstruction/BPH/long-term use of suprapubic tube: Maintain suprapubic tube, monitor urine output, maintain Carballo which is capped, alert Dr. [place] for any changes in status. Continue medications, flush every shift with normal saline. Sepsis/urinary tract infection: Continue Rocephin for total of 10 days as per infectious disease. Monitor CBC on a regular basis and reconsult infectious disease if condition worsens. Culture positive for Proteus mirabilis. PE: Continue treatment with Xarelto. Hypokalemia: Resolved with replacement. Magnesium within normal limits. 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 Will need to have family come in for training and to see what his baseline is. Hypertension: Continue medications, monitor blood pressure on a regular basis and adjust medications for normotension. Avoid hypotension. Hyperlipidemia: Continue statin ADL dysfunction: OT will work on improving ability to perform ADLs (including assistive devices) to increase independence and decrease caregiver burden and improve functional transfers and mobility training. Difficulty walking: PT will work on gait training and proper use of assistive devices and advance as appropriate to use of stairs and outside ambulation on uneven surfaces. Unsteadiness on feet: PT will work on improving static and dynamic sitting and standing balance as well as proper use of assistive devices to decrease risk of falls. Abnormality of gait: PT will work to improve safety and efficiency of gait through neuromotor training and gait training along with instruction on proper use of assistive devices. Muscle weakness: PT & OT will work on strengthening exercises to improve functional strength including mixture of closed and open kinetic chain exercises. Debility: PT & OT will work on improving overall functional status to improve participation with ADLs, mobility and social involvement. Fatigue: PT & OT will work on improving endurance through aerobic exercises and therapeutic activity while monitoring patients tolerance for activity and vital signs as needed. DVT ppx: On Xarelto for PE Pain: Continue physical modalities in therapy and pain medications as needed to achieve functional pain control. Sleep: Monitor and address as needed. Bowel: Monitor and address as needed. Appetite: Monitor and address as needed. Discharge planning: Pending therapy progress and care plan meeting. Will continu e discussion with therapy team, SW, patient and family. Plan to discharge on 10/10 however patient is asking to go home sooner. Will attempt to have family come in and assess his suitability for being safe transfer home and look to discharge as quickly as reasonable. Did discuss with him that we needed to finish the antibiotics and ensure that he is clear of the UTI. Restrictions/ Precautions: Falls, urinary retention, possible confusion WB status: FWB Functional Hx: ADLs: Likely needed assistance Cognition: Needed assistance Mobility: Rolling walker Barriers to Discharge: Decreased mobility and ability to perform self care, balance deficits, weakness Estimated Length of Stay: 1014 days Discharge Destination: Home with family
[2019-10-02] MEDS ORDERED: SODIUM CHLORIDE 0.9% 250ML 250 ML IV ONE (10:25)
[2019-10-02] MEDS: TAMSULOSIN 0.4 MG CAP PO SCH (21:08)
[2019-10-03 07:03] LABS: Hematocrit 33.7 % (35.5-45.6); Hemoglobin 11.3 gm/dl (11.8-15.2); Mean Corpuscular HGB Conc 33 % (32-34); Platelet Count 299 K/mm3 (140-440); Red Blood Count 4.94 M/mm3 (3.65-5.03); Red Cell Distribution Width 14.8 % (13.2-15.2)
[2019-10-03 07:16] LABS: Mean Corpuscular Volume 68 fl (84-94)
[2019-10-03 07:31] LABS: Blood Urea Nitrogen 14 mg/dL (9-20); Calcium 8.3 mg/dL (8.4-10.2); Hemolysis Index 0
[2019-10-03 07:32] LABS: BUN/Creatinine Ratio 20
[2019-10-03] MEDS: RIVAROXABAN 10 MG TAB PO SCH (08:01)
[2019-10-03] MEDS: OXYBUTYNIN 5 MG TAB PO SCH ×3 (08:01→20:28)
[2019-10-03] MEDS: amLODIPine 10 MG TAB PO SCH (08:02)
[2019-10-03] MEDS: cefTRIAXone/NS 2 GM/100 ML 2 GM/100 ML BAG IV SCH ×2 (08:16)
--- NOTE | 2019-10-03 11:13 | Progress Note ---
Subjective Date of service: 10/03/19 Principal diagnosis: Debility with bilateral foot and wrist drop Interval history: 73-year-old male admitted on 09/21/2023 weakness and falling. Patient is a poor historian. After further work-up he had findings suspicious for possible pneumonia and or COVID. He has a previous suprapubic catheter that apparently was clogged as well. Could not be flushed and urology (Dr. [place]) was consulted for placement of Carballo catheter which remains (plugged). He does have neurogenic bladder and BPH per reports. Per notes the plan is to plug the Carballo and go home with the larger SPT open. Urinalysis showed Proteus Mirabilis infection and infectious disease was consulted. He was placed on Rocephin for total of 10 days unless discharged home at which point he would be converted to Cipro. Due to the blocked suprapubic tube he also developed acute kidney injury and was seen by nephrology as well. Medications were dosed on renal basis. CT abdomen showed moderate to severe bilateral hydronephrosis. Creatinine improved once the obstructive uropathy was cleared. Initial chest x-ray showed that there was a left lower lobe pneumonia (not appreciated by my review of imaging) and further investigation into the possible pneumonia as seen on the CT abdomen pelvis did not capture any pneumonia on the chest images captured. He has a history of a pulmonary embolus and remains on Xarelto. He has signs and symptoms of previous neurological damage including a left facial droop and bilateral wrist and foot drop along with slowed speech and interaction. Records not completely clear on causative nature of these changes. Was able to look back in the historical records going back several years and did see another CT head showed a lacunar infarct. Patient also has sickle cell trait per records. Patient was previously independent and able to take care of himself although his did perform all of the household duties including cooking, driving and cleaning (per record review). There was a brief entry by nursing that the patient was placed on restraints due to pulling at IVs and catheters. This was then discontinued. Late last night just prior to being transferred there is also a nursing note stating that the patient is confused, hallucinating and talking to people who were not there. We will have to monitor the patient closely for his own safety and make sure that we do not need to obtain a sitter or that he has not decompensated to the point where he is unable to participate and make progress with therapy. If it does occur we will move to discharge the patient. Interval History: Patient is participating in therapy and making reasonable progress. Taking rest breaks as needed. +BM. Denies pain, palpitations, dyspnea, cough, N/V, or joint pain. Patient is again stating that he wants to go home. Will attempt to ensure that we have a safe discharge. A good portion of his issues are chronic in nature, however we are attempting to improve his function and safety. We will moved to get family in for family training as soon as possible to allow them to see what he is doing and to guide us and our treatment goals. Tearful at times, states that he is walking more with us than he does typically at home. Bladder obstruction/BPH/long-term use of suprapubic tube: Maintain suprapubic tube, monitor urine output, maintain Carballo which is capped, alert Dr. [place] for changes in status. Continue medications. Will order every shift flushing with 10 to 20 cc normal saline Hypokalemia: Potassium now normalized. Continue to monitor Dehydration: Improved with gentle IV fluids. BUN now normalized Hypernatremia: Normalized after half-normal saline. Continue to monitor Sepsis/urinary tract infection: Reconsulted ID, appreciate their help. WBCs have finally normalized. Remains afebrile. Monitor CBC on a regular basis. Culture positive for Proteus mirabilis. Finish last 2 days of antibiotics PE: Continue treatment with Xarelto. 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 Will need to have family come in for training and to see what his baseline is. Seems to be walking better with orthosis and platform walker Hypertension: Continue medications, monitor blood pressure on a regular basis and adjust medications for normotension. Avoid hypotension. Skin breakdown: Contacted this morning by nursing and informed that patient had skin breakdown on his scrotum and penis. Wound consult ordered. Keep clean dry and monitor for any signs of further breakdown/infection All records, vitals, labs and medications were reviewed. No other issues per patient, nursing or therapy. Objective - Exam Narrative Exam: MUSCULOSKELETAL SPECIALTY EXAM CONSTITUTIONAL: Well developed, well nourished, appropriately groomed EENT: Prosthetic left eye. Hearing intact to soft voice RESPIRATORY: Clear to auscultation bilaterally, no increased work of breathing CARDIOVASCULAR: Regular Rate/ Rhythm, no swelling, edema or tenderness in BUE or BLE. All extremities warm. GI: + bowel sounds, soft, NTTP, nondistended. : Suprapubic tube INTEGUMENTARY: Normal, no lesion, rash, masses or bruising noted in extremities. Skin breakdow n on scrotum/penis. MUSCULOSKELETAL: BUE and BLE normal without defect, crepitus, subluxation, effusion, arthritic changes or TTP. Patient does have bilateral wrist drop and foot drop, unable to grasp/make a fist otherwise: BUE 4-/5, decreased ROM (unable to perform shoulder abduction past 90 degrees), with normal tone. BLE 4-/5, decreased ROM, with normal tone NEURO: CN 2-12 grossly intact. Sensation intact in all extremities. No tremor noted in 4 extremities. POSTURE and GAIT: Sitting posture good. Balance and gait deferred until seen with therapy (poor balance per report). PSYCH: Alert, oriented x1, confused at times, affect appears flattened, tearful at times. Insight appears intact. - Constitutional Vitals: Vital Signs - 12hr 10/03/19 10/03/19 10/03/19 05:11 07:45 08:00 Temperature 98.7 F 97.5 F L 97.5 F L Pulse Rate 67 71 55 L Respiratory 18 18 18 Rate Blood Pressure 107/62 109/56 Blood Pressure 109/56 [Left] O2 Sat by Pulse 100 100 100 Oximetry 10/03/19 08:02 Temperature Pulse Rate Respiratory Rate Blood Pressure 109/56 Blood Pressure [Left] O2 Sat by Pulse Oximetry - Allied health notes Allied health notes reviewed: nursing, PT, OT FIMS assessment as documented by PT/OT/ST: Grooming Patient cleans teeth/dentures: No Patient weeks/brushes hair: No Patient washes, rinses and No dries face: Grooming FIM Score 2. Maximal Assistance (Patient = 25% or more) Transfers Mode of Locomotion: Wheelchair Bed/Chair/Wheelchair Transfers 4. Minimal Assistance (Patient = 75% or more. FIM Score Needs touching.) Toilet Transfers FIM Score 4. Minimal Assistance (Patient = 75% or more. Needs touching.) Shower Transfers FIM Score 4. Minimal Assistance (Patient = 75% or more. Needs touching.) Eating Eating Device Adapted Utensil Eating FIM Score 3. Moderate Assistance (Patient = 50% or more) Dressing-Upper body Patient retrieves clothing No items: Patient applies/removes UE No prosthesis or orthosis: Upper Body Dressing FIM Score 3. Moderate Assistance (Patient = 50% or more) Dressing-lower body Patient retrieves clothing No items: Patient applies/removes LE No prosthesis or orthosis: Lower Body Dressing FIM Score 2. Maximal Assistance (Patient = 25% or more) - Labs CBC & Chem 7: 10/03/19 06:55 10/03/19 06:55 Labs: Laboratory Results - last 72 hr 10/01/19 10/01/19 10/02/19 07:00 07:00 07:27 WBC 11.7 H 12.2 H RBC 5.50 H 5.26 H Hgb 12.4 12.0 Hct 37.9 36.5 MCV 69 L 69 L MCH 23 L 23 L MCHC 33 33 RDW 15.1 15.2 Plt Count 268 298 Sodium 143 Potassium 4.0 Chloride 107.4 H Carbon Dioxide 25 Anion Gap 15 BUN 17 Creatinine 0.8 Estimated GFR > 60 BUN/Creatinine Ratio 21 Glucose 90 Calcium 8.6 10/02/19 10/03/19 10/03/19 07:27 06:55 06:55 WBC 8.7 RBC 4.94 Hgb 11.3 L Hct 33.7 L MCV 68 L MCH 23 L MCHC 33 RDW 14.8 Plt Count 299 Sodium 140 143 Potassium 4.0 3.9 Chloride 106.8 108.5 H Carbon Dioxide 23 22 Anion Gap 14 16 BUN 16 14 Creatinine 0.7 L 0.7 L Estimated GFR > 60 > 60 BUN/Creatinine Ratio 23 20 Glucose 95 87 Calcium 8.6 8.3 L Assessment and Plan Bladder obstruction/BPH/long-term use of suprapubic tube: Maintain suprapubic tube, monitor urine output, maintain Carballo which is capped, alert Dr. [place] for any changes in status. Continue medications, flush every shift with normal saline. Sepsis/urinary tract infection: Continue Rocephin for total of 10 days as per infectious disease. Monitor CBC on a regular basis and reconsult infectious disease if condition worsens. Culture positive for Proteus mirabilis. WBCs finally normalizing. PE: Chronic in nature. Continue treatment with Xarelto. Skin breakdown: Wound care consult ordered. Monitor skin, make sure area is kept clean and dry. Hypertension: Continue medications, monitor blood pressure on a regular basis and adjust medications for normotension. Avoid hypotension. Hypokalemia: Resolved with replacement. Magnesium within normal limits. 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 Will need to have family come in for training and to see what his baseline is. Hyperlipidemia: Continue statin ADL dysfunction: OT will work on improving ability to perform ADLs (including assistive devices) to increase independence and decrease caregiver burden and improve functional transfers and mobility training. Difficulty walking: PT will work on gait training and proper use of assistive devices and advance as appropriate to use of stairs and outside ambulation on uneven surfaces. Unsteadiness on feet: PT will work on improving static and dynamic sitting and standing balance as well as proper use of assistive devices to decrease risk of falls. Abnormality of gait: PT will work to improve safety and efficiency of gait through neuromotor training and gait training along with instruction on proper use of assistive devices. Muscle weakness: PT & OT will work on strengthening exercises to improve functional strength including mixture of closed and open kinetic chain exercises. Debility: PT & OT will work on improving overall functional status to improve participation with ADLs, mobility and social involvement. Fatigue: PT & OT will work on improving endurance through aerobic exercises and therapeutic activity while monitoring patients tolerance for activity and vital signs as needed. DVT ppx: On Xarelto for PE Pain: Continue physical modalities in therapy and pain medications as needed to achieve functional pain control. Sleep: Monitor and address as needed. Bowel: Monitor and address as needed. Appetite: Monitor and address as needed. Discharge planning: Pending therapy progress and care plan meeting. Will continue discussion with therapy team, SW, patient and family. Plan to discharge on 10/10 however patient is asking to go home sooner. Will attempt to have family come in and assess his suitability for being safe transfer home and look to discharge as quickly as reasonable. Did discuss with him that we needed to finish the antibiotics and ensure that he is clear of the UTI. Restrictions/ Precautions: Falls, urinary retention, possible confusion WB status: FWB Functional Hx: ADLs: Likely needed assistance Cognition: Needed assistance Mobility: Rolling walker Barriers to Discharge: Decreased mobility and ability to perform self care, balance deficits, weakness Estimated Length of Stay: 1014 days Discharge Destination: Home with family
[2019-10-03] MEDS: TAMSULOSIN 0.4 MG CAP PO SCH (20:28)
[2019-10-04 08:09] LABS: Blood Urea Nitrogen 12 mg/dL (9-20); Calcium 8.3 mg/dL (8.4-10.2); Hemolysis Index 10
[2019-10-04 08:31] LABS: BUN/Creatinine Ratio 17
[2019-10-04] MEDS: OXYBUTYNIN 5 MG TAB PO SCH ×3 (08:56→21:38)
[2019-10-04] MEDS: RIVAROXABAN 10 MG TAB PO SCH (08:56)
[2019-10-04] MEDS: amLODIPine 10 MG TAB PO SCH (08:56)
--- NOTE | 2019-10-04 11:11 | Progress Note ---
Subjective Date of service: 10/04/19 Principal diagnosis: Debility with bilateral foot and wrist drop Interval history: 73-year-old male admitted on 09/21/2023 weakness and falling. Patient is a poor historian. After further work-up he had findings suspicious for possible pneumonia and or COVID. He has a previous suprapubic catheter that apparently was clogged as well. Could not be flushed and urology (Dr. [place]) was consulted for placement of Carballo catheter which remains (plugged). He does have neurogenic bladder and BPH per reports. Per notes the plan is to plug the Carballo and go home with the larger SPT open. Urinalysis showed Proteus Mirabilis infection and infectious disease was consulted. He was placed on Rocephin for total of 10 days unless discharged home at which point he would be converted to Cipro. Due to the blocked suprapubic tube he also developed acute kidney injury and was seen by nephrology as well. Medications were dosed on renal basis. CT abdomen showed moderate to severe bilateral hydronephrosis. Creatinine improved once the obstructive uropathy was cleared. Initial chest x-ray showed that there was a left lower lobe pneumonia (not appreciated by my review of imaging) and further investigation into the possible pneumonia as seen on the CT abdomen pelvis did not capture any pneumonia on the chest images captured. He has a history of a pulmonary embolus and remains on Xarelto. He has signs and symptoms of previous neurological damage including a left facial droop and bilateral wrist and foot drop along with slowed speech and interaction. Records not completely clear on causative nature of these changes. Was able to look back in the historical records going back several years and did see another CT head showed a lacunar infarct. Patient also has sickle cell trait per records. Patient was previously independent and able to take care of himself although his did perform all of the household duties including cooking, driving and cleaning (per record review). There was a brief entry by nursing that the patient was placed on restraints due to pulling at IVs and catheters. This was then discontinued. Late last night just prior to being transferred there is also a nursing note stating that the patient is confused, hallucinating and talking to people who were not there. We will have to monitor the patient closely for his own safety and make sure that we do not need to obtain a sitter or that he has not decompensated to the point where he is unable to participate and make progress with therapy. If it does occur we will move to discharge the patient. Interval History: Patient is participating in therapy and making reasonable progress. Taking rest breaks as needed. +BM. Denies pain, palpitations, dyspnea, cough, N/V, or joint pain. Making good progress utilizing AFOs and improving his ambulatory distance. Remains slightly resistant to continuing therapy but does participate with encouragement. Does agree that going home with AFOs would be beneficial for him. Patient is again stating that he wants to go home. Will attempt to ensure that we have a safe discharge. Bladder obstruction/BPH/long-term use of suprapubic tube: Maintain suprapubic tube, monitor urine output, maintain Carballo which is capped, alert Dr. [place] for changes in status. Continue medications. Will order every shift flushing with 10 to 20 cc normal saline Hypokalemia: Potassium now normalized. Continue to monitor Dehydration: Improved with gentle IV fluids. BUN now normalized Hypernatremia: Normalized after half-normal saline. Continue to monitor Sepsis/urinary tract infection: Reconsulted ID, appreciate their help. WBCs have finally normalized. Remains afebrile. Monitor CBC on a regular basis. Culture positive for Proteus mirabilis. Finish last day of antibiotics. CBC was not drawn this morning for some reason. Contacted labs they are sending someone to draw it. If WBCs are normal, may stop antibiotics at this point. PE: Continue treatment with Xarelto. 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 Will need to have family come in for training and to see what his baseline is. Seems to be w alking better with orthosis and platform walker Hypertension: Continue medications, monitor blood pressure on a regular basis and adjust medications for normotension. Avoid hypotension. Skin breakdown: Contacted this morning by nursing and informed that patient had skin breakdown on his scrotum and penis. Wound consult ordered. Keep clean dry and monitor for any signs of further breakdown/infection All records, vitals, labs and medications were reviewed. No other issues per patient, nursing or therapy. Objective - Exam Narrative Exam: MUSCULOSKELETAL SPECIALTY EXAM CONSTITUTIONAL: Well developed, well nourished, appropriately groomed EENT: Prosthetic left eye. Hearing intact to soft voice RESPIRATORY: Clear to auscultation bilaterally, no increased work of breathing CARDIOVASCULAR: Regular Rate/ Rhythm, no swelling, edema or tenderness in BUE or BLE. All extremities warm. GI: + bowel sounds, soft, NTTP, nondistended. : Suprapubic tube INTEGUMENTARY: Normal, no lesion, rash, masses or bruising noted in extremities. Skin breakdown on scrotum/penis. MUSCULOSKELETAL: BUE and BLE normal without defect, crepitus, subluxation, effusion, arthritic changes or TTP. Patient does have bilateral wrist drop and foot drop, unable to grasp/make a fist otherwise: BUE 4-/5, decreased ROM (unable to perform shoulder abduction past 90 degrees), with normal tone. BLE 4-/5, decreased ROM, with normal tone NEURO: CN 2-12 grossly intact. Sensation intact in all extremities. No tremor noted in 4 extremities. POSTURE and GAIT: Sitting posture good. Balance okay, dynamic is poor. Patient is ambulating with a platform walker with bilateral AFOs. No overt loss of balance but does have slowed, unsteady gait. Able to ambulate approximately 170 feet with min assist PSYCH: Alert, oriented x1, confused at times, affect appears flattened, tearful at times. Insight appears intact. - Constitutional Vitals: Vital Signs - 12hr 10/03/19 10/04/19 10/04/19 23:39 03:20 08:32 Temperature 98.5 F 99.2 F 99.0 F Pulse Rate 75 72 72 Respiratory 18 17 18 Rate Blood Pressure 120/61 115/61 104/56 O2 Sat by Pulse 98 98 100 Oximetry 10/04/19 08:56 Temperature Pulse Rate 72 Respiratory Rate Blood Pressure 104/56 O2 Sat by Pulse Oximetry - Allied health notes Allied health notes reviewed: nursing, PT, OT FIMS assessment as documented by PT/OT/ST: Grooming Patient cleans teeth/dentures: No Patient weeks/brushes hair: No Patient washes, rinses and Yes dries face: Patient washes, rinses and Yes dries hands: Patient shaves: No Grooming FIM Score 3. Moderate Assistance (Patient = 50% or more) Toileting Toileting Device Commode over Toilet Toileting FIM Score 2. Maximal Assistance (Patient = 25% or more) Transfers Mode of Locomotion: Wheelchair Bed/Chair/Wheelchair Transfers 4. Minimal Assistance (Patient = 75% or more. FIM Score Needs touching.) Toilet Transfers FIM Score 4. Minimal Assistance (Patient = 75% or more. Needs touching.) Patient transferred to: Shower Shower Transfers FIM Score 4. Minimal Assistance (Patient = 75% or more. Needs touching.) Eating Eating Device Adapted Utensil Eating FIM Score 3. Moderate Assistance (Patient = 50% or more) Dressing-Upper body Patient retrieves clothing No items: Patient applies/removes UE No prosthesis or orthosis: Upper Body Dressing FIM Score 3. Moderate Assistance (Patient = 50% or more) Dressing-lower body Patient retrieves clothing No items: Patient applies/removes LE No prosthesis or orthosis: Lower Body Dressing FIM Score 2. Maximal Assistance (Patient = 25% or more) - Labs CBC & Chem 7: 10/03/19 06:55 10/04/19 07:17 Labs: Laboratory Results - last 72 hr 10/02/19 10/02/19 10/03/19 07:27 07:27 06:55 WBC 12.2 H 8.7 RBC 5.26 H 4.94 Hgb 12.0 11.3 L Hct 36.5 33.7 L MCV 69 L 68 L MCH 23 L 23 L MCHC 33 33 RDW 15.2 14.8 Plt Count 298 299 Sodium 140 Potassium 4.0 Chloride 106.8 Carbon Dioxide 23 Anion Gap 14 BUN 16 Creatinine 0.7 L Estimated GFR > 60 BUN/Creatinine Ratio 23 Glucose 95 Calcium 8.6 10/03/19 10/04/19 06:55 07:17 WBC RBC Hgb Hct MCV MCH MCHC RDW Plt Count Sodium 143 142 Potassium 3.9 3.7 Chloride 108.5 H 108.3 H Carbon Dioxide 22 23 Anion Gap 16 14 BUN 14 12 Creatinine 0.7 L 0.7 L Estimated GFR > 60 > 60 BUN/Creatinine Ratio 20 17 Glucose 87 94 Calcium 8.3 L 8.3 L Assessment and Plan Bladder obstruction/BPH/long-term use of suprapubic tube: Maintain suprapubic tube, monitor urine output, maintain Carballo which is capped, alert Dr. [place] for any changes in status. Continue medications, flush every shift with normal saline. Sepsis/urinary tract infection: Continue Rocephin for total of 10 days as per i nfectious disease. Monitor CBC on a regular basis and reconsult infectious disease if condition worsens. Culture positive for Proteus mirabilis. WBCs finally normalizing. PE: Chronic in nature. Continue treatment with Xarelto. Skin breakdown: Wound care consult ordered. Monitor skin, make sure area is kept clean and dry. Hypertension: Continue medications, monitor blood pressure on a regular basis and adjust medications for normotension. Avoid hypotension. Hypokalemia: Resolved with replacement. Magnesium within normal limits. 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 Will need to have family come in for training. Patient is agreeable with utilizing bilateral AFOs. Medium, anterior AFOs [id number] will be ordered. Hyperlipidemia: Continue statin ADL dysfunction: OT will work on improving ability to perform ADLs (including assistive devices) to increase independence and decrease caregiver burden and improve functional transfers and mobility training. Difficulty walking: PT will work on gait training and proper use of assistive devices and advance as appropriate to use of stairs and outside ambulation on uneven surfaces. Unsteadiness on feet: PT will work on improving static and dynamic sitting and standing balance as well as proper use of assistive devices to decrease risk of falls. Abnormality of gait: PT will work to improve safety and efficiency of gait through neuromotor training and gait training along with instruction on proper use of assistive devices. Muscle weakness: PT & OT will work on strengthening exercises to improve functional strength including mixture of closed and open kinetic chain exercises. Debility: PT & OT will work on improving overall functional status to improve participation with ADLs, mobility and social involvement. Fatigue: PT & OT will work on improving endurance through aerobic exercises and therapeutic activity while monitoring patients tolerance for activity and vital signs as needed. DVT ppx: On Xarelto for PE Pain: Continue physical modalities in therapy and pain medications as needed to achieve functional pain control. Sleep: Monitor and address as needed. Bowel: Monitor and address as needed. Appetite: Monitor and address as needed. Discharge planning: Pending therapy progress and care plan meeting. Will continue discussion with therapy team, SW, patient and family. Plan to discharge on 10/10 however patient is asking to go home sooner. Will attempt to have family come in and assess his suitability for being safe transfer home and look to discharge as quickly as reasonable. Did discuss with him that we needed to finish the antibiotics and ensure that he is clear of the UTI. Restrictions/ Precautions: Falls, urinary retention, possible confusion WB status: FWB Functional Hx: ADLs: Likely needed assistance Cognition: Needed assistance Mobility: Rolling walker Barriers to Discharge: Decreased mobility and ability to perform self care, balance deficits, weakness Estimated Length of Stay: 1014 days Discharge Destination: Home with family
[2019-10-04 12:26] LABS: Hemoglobin 11.9 gm/dl (11.8-15.2); Mean Corpuscular HGB Conc 33 % (32-34); Platelet Count 345 K/mm3 (140-440); Red Blood Count 5.21 M/mm3 (3.65-5.03); Red Cell Distribution Width 14.9 % (13.2-15.2)
[2019-10-04 12:28] LABS: Mean Corpuscular Volume 69 fl (84-94)
[2019-10-04] MEDS: cefTRIAXone/NS 2 GM/100 ML 2 GM/100 ML BAG IV SCH (14:40)
[2019-10-04] MEDS: TAMSULOSIN 0.4 MG CAP PO SCH (21:38)
[2019-10-05] MEDS: OXYBUTYNIN 5 MG TAB PO SCH ×3 (07:45→21:53)
[2019-10-05] MEDS: RIVAROXABAN 10 MG TAB PO SCH (07:45)
[2019-10-05] MEDS: amLODIPine 10 MG TAB PO SCH (07:46)
--- NOTE | 2019-10-05 12:26 | Progress Note ---
Subjective Date of service: 10/05/19 Principal diagnosis: Debility with bilateral foot and wrist drop Interval history: 73-year-old male admitted on 09/21/2023 weakness and falling. Patient is a poor historian. After further work-up he had findings suspicious for possible pneumonia and or COVID. He has a previous suprapubic catheter that apparently was clogged as well. Could not be flushed and urology (Dr. [place]) was consulted for placement of Carballo catheter which remains (plugged). He does have neurogenic bladder and BPH per reports. Per notes the plan is to plug the Carballo and go home with the larger SPT open. Urinalysis showed Proteus Mirabilis infection and infectious disease was consulted. He was placed on Rocephin for total of 10 days unless discharged home at which point he would be converted to Cipro. Due to the blocked suprapubic tube he also developed acute kidney injury and was seen by nephrology as well. Medications were dosed on renal basis. CT abdomen showed moderate to severe bilateral hydronephrosis. Creatinine improved once the obstructive uropathy was cleared. Initial chest x-ray showed that there was a left lower lobe pneumonia (not appreciated by my review of imaging) and further investigation into the possible pneumonia as seen on the CT abdomen pelvis did not capture any pneumonia on the chest images captured. He has a history of a pulmonary embolus and remains on Xarelto. He has signs and symptoms of previous neurological damage including a left facial droop and bilateral wrist and foot drop along with slowed speech and interaction. Records not completely clear on causative nature of these changes. Was able to look back in the historical records going back several years and did see another CT head showed a lacunar infarct. Patient also has sickle cell trait per records. Patient was previously independent and able to take care of himself although his did perform all of the household duties including cooking, driving and cleaning (per record review). There was a brief entry by nursing that the patient was placed on restraints due to pulling at IVs and catheters. This was then discontinued. Late last night just prior to being transferred there is also a nursing note stating that the patient is confused, hallucinating and talking to people who were not there. We will have to monitor the patient closely for his own safety and make sure that we do not need to obtain a sitter or that he has not decompensated to the point where he is unable to participate and make progress with therapy. If it does occur we will move to discharge the patient. Interval History: Patient is participating in therapy and making reasonable progress. Taking rest breaks as needed. +BM. Denies pain, palpitations, dyspnea, cough, N/V, or joint pain. Making good progress utilizing AFOs and improving his ambulatory distance. Remains slightly resistant to continuing therapy but does participate with encouragement. Plan is to have family training on Tuesday with discharge following on Tuesday. Bladder obstruction/BPH/long-term use of suprapubic tube: Maintain suprapubic tube, monitor urine output, maintain Carballo which is capped, alert Dr. [place] for changes in status. Continue medications. Will order every shift flushing with 10 to 20 cc normal saline. Hypokalemia: Potassium now normalized. Continue to monitor Dehydration: Improved with gentle IV fluids. BUN now normalized Hypernatremia: Normalized after half-normal saline. Continue to monitor Sepsis/urinary tract infection: Reconsulted ID, appreciate their help. WBCs have finally normalized. Remains afebrile. Monitor CBC on a regular basis. Culture positive for Proteus mirabilis. Completed antibiotic. CBC within normal limits PE: Continue treatment with Xarelto. 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 Will need to have family come in for training and to see what his baseline is. Seems to be walking better with orthosis and platform walker Hypertension: Continue medications, monitor blood pressure on a regular basis and adjust medications for normotension. Avoid hypotension. Skin breakdown: Contacted this morning by nursing and informed that patient had skin breakdown on his scrotum and penis. Wound consult ordered. Keep clean dry and monitor for any signs of further breakdown/infection All records, vitals, labs and medications were reviewed. No other issues per patient, nursing or therapy. Objective - Exam Narrative Exam: MUSCULOSKELETAL SPECIALTY EXAM CONSTITUTIONAL: Well developed, well nourished, appropriately groomed EENT: Prosthetic left eye. Hearing intact to soft voice RESPIRATORY: Clear to auscultation bilaterally, no increased work of breathing CARDIOVASCULAR: Regular Rate/ Rhythm, no swelling, edema or tenderness in BUE or BLE. All extremities warm. GI: + bowel sounds, soft, NTTP, nondistended. : Suprapubic tube INTEGUMENTARY: Normal, no lesion, rash, masses or bruising noted in extremities. Skin breakdo wn on scrotum/penis. MUSCULOSKELETAL: BUE and BLE normal without defect, crepitus, subluxation, effusion, arthritic changes or TTP. Patient does have bilateral wrist drop and foot drop, unable to grasp/make a fist otherwise: BUE 4-/5, decreased ROM (unable to perform shoulder abduction past 90 degrees), with normal tone. BLE 4-/5, decreased ROM, with normal tone NEURO: CN 2-12 grossly intact. Sensation intact in all extremities. No tremor noted in 4 extremities. POSTURE and GAIT: Sitting posture good. Balance okay, dynamic is poor. Patient is ambulating with a platform walker with bilateral AFOs. No overt loss of balance but does have slowed, unsteady gait. Able to ambulate approximately 170 feet with min assist PSYCH: Alert, oriented x1, confused at times, affect flattened, tearful at times. Insight appears intact. - Constitutional Vitals: Vital Signs - 12hr 10/05/19 10/05/19 10/05/19 05:23 07:26 07:46 Temperature 98.9 F 98.3 F Pulse Rate 66 67 67 Respiratory 18 18 Rate Blood Pressure 115/53 111/49 111/49 O2 Sat by Pulse 97 98 Oximetry 10/05/19 11:17 Temperature 99.2 F Pulse Rate 72 Respiratory 18 Rate Blood Pressure 120/54 O2 Sat by Pulse 100 Oximetry - Allied health notes Allied health notes reviewed: nursing, PT, OT FIMS assessment as documented by PT/OT/ST: Grooming Patient cleans teeth/dentures: No Patient weeks/brushes hair: No Patient washes, rinses and Yes dries face: Patient washes, rinses and Yes dries hands: Patient shaves: No Grooming FIM Score 3. Moderate Assistance (Patient = 50% or more) Toileting Toileting Device Commode over Toilet Toileting FIM Score 2. Maximal Assistance (Patient = 25% or more) Transfers Mode of Locomotion: Wheelchair Bed/Chair/Wheelchair Transfers 4. Minimal Assistance (Patient = 75% or more. FIM Score Needs touching.) Toilet Transfers FIM Score 4. Minimal Assistance (Patient = 75% or more. Needs touching.) Patient transferred to: Shower Shower Transfers FIM Score 4. Minimal Assistance (Patient = 75% or more. Needs touching.) Eating Eating Device Adapted Utensil Eating FIM Score 3. Moderate Assistance (Patient = 50% or more) Dressing-Upper body Patient retrieves clothing No items: Patient applies/removes UE No prosthesis or orthosis: Upper Body Dressing FIM Score 3. Moderate Assistance (Patient = 50% or more) Dressing-lower body Patient retrieves clothing No items: Patient applies/removes LE No prosthesis or orthosis: Lower Body Dressing FIM Score 2. Maximal Assistance (Patient = 25% or more) - Labs CBC & Chem 7: 10/04/19 12:04 10/04/19 07:17 Labs: Laboratory Results - last 72 hr 10/03/19 10/03/19 10/04/19 06:55 06:55 07:17 WBC 8.7 RBC 4.94 Hgb 11.3 L Hct 33.7 L MCV 68 L MCH 23 L MCHC 33 RDW 14.8 Plt Count 299 Sodium 143 142 Potassium 3.9 3.7 Chloride 108.5 H 108.3 H Carbon Dioxide 22 23 Anion Gap 16 14 BUN 14 12 Creatinine 0.7 L 0.7 L Estimated GFR > 60 > 60 BUN/Creatinine Ratio 20 17 Glucose 87 94 Calcium 8.3 L 8.3 L 10/04/19 12:04 WBC 10.6 RBC 5.21 H Hgb 11.9 Hct 36.0 MCV 69 L MCH 23 L MCHC 33 RDW 14.9 Plt Count 345 Sodium Potassium Chloride Carbon Dioxide Anion Gap BUN Creatinine Estimated GFR BUN/Creatinine Ratio Glucose Calcium Assessment and Plan Bladder obstruction/BPH/long-term use of suprapubic tube: Maintain suprapubic tube, monitor urine output, maintain Carballo which is capped, alert Dr. [place] for any changes in status. Continue medications, flush every shift with normal saline. Sepsis/urinary tract infection: Continue Rocephin for total of 10 days as per infectious disease. Monitor CBC on a regular basis and reconsult infectious disease if condition worsens. Culture positive for Proteus mirabilis. WBCs normalized. Antibiotic completed. PE: Chronic in nature. Continue treatment with Xarelto. Skin breakdown: On scrotum. Wound care consult ordered. Monitor skin, make s ure area is kept clean and dry. Hypertension: Continue medications, monitor blood pressure on a regular basis and adjust medications for normotension. Avoid hypotension. Hypokalemia: Resolved with replacement. Magnesium within normal limits. 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 Will need to have family come in for training. Patient is agreeable with utilizing bilateral AFOs. Medium, anterior AFOs [id number] will be ordered. Hyperlipidemia: Continue statin ADL dysfunction: OT will work on improving ability to perform ADLs (including assistive devices) to increase independence and decrease caregiver burden and improve functional transfers and mobility training. Difficulty walking: PT will work on gait training and proper use of assistive devices and advance as appropriate to use of stairs and outside ambulation on uneven surfaces. Unsteadiness on feet: PT will work on improving static and dynamic sitting and standing balance as well as proper use of assistive devices to decrease risk of falls. Abnormality of gait: PT will work to improve safety and efficiency of gait through neuromotor training and gait training along with instruction on proper use of assistive devices. Muscle weakness: PT & OT will work on strengthening exercises to improve functional strength including mixture of closed and open kinetic chain exercises. Debility: PT & OT will work on improving overall functional status to improve participation with ADLs, mobility and social involvement. Fatigue: PT & OT will work on improving endurance through aerobic exercises and therapeutic activity while monitoring patients tolerance for activity and vital signs as needed. DVT ppx: On Xarelto for PE Pain: Continue physical modalities in therapy and pain medications as needed to achieve functional pain control. Sleep: Monitor and address as needed. Bowel: Monitor and address as needed. Appetite: Monitor and address as needed. Discharge planning: Pending therapy progress and care plan meeting. Will continue discussion with therapy team, SW, patient and family. Plan to discharge on 10/10 however patient is asking to go home sooner. Will attempt to have family come in and assess his suitability for being safe transfer home and look to discharge as quickly as reasonable. Family training on Tuesday Restrictions/ Precautions: Falls, urinary retention, possible confusion WB status: FWB Functional Hx: ADLs: Likely needed assistance Cognition: Needed assistance Mobility: Rolling walker Barriers to Discharge: Decreased mobility and ability to perform self care, balance deficits, weakness Estimated Length of Stay: 1014 days Discharge Destination: Home with family
[2019-10-05] MEDS: oxyCODONE /ACETAMINOPHEN 5-325MG TAB PO PRN (17:48)
[2019-10-05] MEDS: TAMSULOSIN 0.4 MG CAP PO SCH (21:53)
[2019-10-06] MEDS: oxyCODONE /ACETAMINOPHEN 5-325MG TAB PO PRN (01:44)
[2019-10-06] MEDS: OXYBUTYNIN 5 MG TAB PO SCH ×3 (08:21→21:02)
[2019-10-06] MEDS: RIVAROXABAN 10 MG TAB PO SCH (08:21)
[2019-10-06] MEDS: amLODIPine 10 MG TAB PO SCH (11:59)
[2019-10-06] MEDS: TAMSULOSIN 0.4 MG CAP PO SCH (21:02)
[2019-10-07 07:58] LABS: Hematocrit 33.6 % (35.5-45.6); Hemoglobin 10.9 gm/dl (11.8-15.2); Mean Corpuscular HGB Conc 33 % (32-34); Platelet Count 353 K/mm3 (140-440); Red Blood Count 4.84 M/mm3 (3.65-5.03); Red Cell Distribution Width 14.6 % (13.2-15.2)
[2019-10-07] MEDS: OXYBUTYNIN 5 MG TAB PO SCH ×3 (08:01→22:37)
[2019-10-07] MEDS: RIVAROXABAN 10 MG TAB PO SCH (08:01)
[2019-10-07] MEDS: amLODIPine 10 MG TAB PO SCH (08:01)
[2019-10-07 08:05] LABS: Blood Urea Nitrogen 8 mg/dL (9-20); Calcium 8.5 mg/dL (8.4-10.2); Hemolysis Index 0
[2019-10-07 08:10] LABS: BUN/Creatinine Ratio 13
[2019-10-07 08:12] LABS: Mean Corpuscular Volume 69 fl (84-94)
[2019-10-07] MEDS: TAMSULOSIN 0.4 MG CAP PO SCH (22:36)
[2019-10-08] MEDS: amLODIPine 10 MG TAB PO SCH (09:27)
[2019-10-08] MEDS: OXYBUTYNIN 5 MG TAB PO SCH ×3 (09:27→22:34)
[2019-10-08] MEDS: RIVAROXABAN 10 MG TAB PO SCH (09:27)
--- NOTE | 2019-10-08 12:03 | Progress Note ---
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 Patient is a poor historian. After further work-up he had findings suspicious for possible pneumonia and or COVID. He has a previous suprapubic catheter that apparently was clogged as well. Could not be flushed and urology (Dr. Montana) was consulted for placement of Carballo catheter which remains (plugged). He does have neurogenic bladder and BPH per reports. Per notes the plan is to plug the Carballo and go home with the larger SPT open. Urinalysis showed Proteus Mirabilis infection and infectious disease was consulted. He was placed on Rocephin for total of 10 days unless discharged home at which point he would be converted to Cipro. Due to the blocked suprapubic tube he also developed acute kidney injury and was seen by nephrology as well. Medications were dosed on renal basis. CT abdomen showed moderate to severe bilateral hydronephrosis. Creatinine improved once the obstructive uropathy was cleared. Initial chest x-ray showed that there was a left lower lobe pneumonia (not appreciated by my review of imaging) and further investigation into the possible pneumonia as seen on the CT abdomen pelvis did not capture any pneumonia on the chest images captured. He has a history of a pulmonary embolus and remains on Xarelto. He has signs and symptoms of previous neurological damage including a left facial droop and bilateral wrist and foot drop along with slowed speech and interaction. Records not completely clear on causative nature of these changes. Was able to look back in the historical records going back several years and did see another CT head showed a lacunar infarct. Patient also has sickle cell trait per records. Patient was previously independent and able to take care of himself although his did perform all of the household duties including cooking, driving and cleaning (per record review). There was a brief entry by nursing that the patient was placed on restraints due to pulling at IVs and catheters. This was then discontinued. Late last night just prior to being transferred there is also a nursing note stating that the patient is confused, hallucinating and talking to people who were not there. We will have to monitor the patient closely for his own safety and make sure that we do not need to obtain a sitter or that he has not decompensated to the point where he is unable to participate and make progress with therapy. If it does occur we will move to discharge the patient. Interval History: Patient is participating in therapy and making fair progress. Taking rest breaks as needed. +BM. Denies pain, palpitations, dyspnea, cough, N/V, or joint pain. Making good progress utilizing AFOs and improving his ambulatory distance. Remains slightly resistant to continuing therapy but does participate with encouragement. came in for family training. States that he is not quite back at baseline and she feels that he needs to be a little bit stronger before returning home. We agree, after discussing with the patient and expla ining the pros and cons of this he finally agreed to stay until . He is continuing to make progress and should be doing better prior to returning home. Patient is refusing saline flushes to his SPT at times. Bladder obstruction/BPH/long-term use of suprapubic tube: Maintain suprapubic tube, monitor urine output, maintain Carballo which is capped, alert Dr. Montana for changes in status. Continue medications. Will order every shift flushing with 10 to 20 cc normal saline. Hypokalemia: Potassium now normalized. Continue to monitor Dehydration: Improved with gentle IV fluids. BUN now normalized Hypernatremia: Normalized after half-normal saline. Continue to monitor Sepsis/urinary tract infection: Reconsulted ID, appreciate their help. WBCs have finally normalized. Monitor CBC on a regular basis. Culture positive for Proteus mirabilis. Completed antibiotic. CBC within normal limits. Patient did have a slight temperature of 100.3 over the weekend, this happened o n several occasions. WBCs have stayed within normal limits. No other signs of infection or return of sepsis. Continue to monitor PE: Continue treatment with Xarelto. 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 Will need to have family come in for training and to see what his baseline is. Seems to be walking better with orthosis and platform walker Hypertension: Continue medications, monitor blood pressure on a regular basis and adjust medications for normotension. Avoid hypotension. Skin breakdown: Patient has skin breakdown on his scrotum and penis. Wound consult ordered. Keep clean dry and monitor for any signs of further breakdown/infection All records, vitals, labs and medications were reviewed. No other issues per patient, nursing or therapy. Objective - Exam Narrative Exam: MUSCULOSKELETAL SPECIALTY EXAM CONSTITUTIONAL: Well developed, well nourished, appropriately groomed EENT: Prosthetic left eye. Hearing intact to soft voice RESPIRATORY: Clear to auscultation bilaterally, no increased work of breathing CARDIOVASCULAR: Regular Rate/ Rhythm, no swelling, edema or tenderness in BUE or BLE. All extremities warm. GI: + bowel sounds, soft, NTTP, nondistended. : Suprapubic tube INTEGUMENTARY: Normal, no lesion, rash, masses or bruising noted in extremities. Skin breakdown on scrotum/penis. MUSCULOSKELETAL: BUE and BLE normal without defect, crepitus, subluxation, effusion, arthritic changes or TTP. Patient does have bilateral wrist drop and foot drop, unable to grasp/make a fist otherwise: BUE 4-/5, decreased ROM (unable to perform shoulder abduction past 90 degrees), with normal tone. BLE 4-/5, decreased ROM, with normal tone NEURO: CN 2-12 grossly intact. Sensation intact in all extremities. No tremor noted in 4 extremities. POSTURE and GAIT: Sitting posture good. Balance okay, dynamic is poor. Patient is ambulating with a platform walker with bilateral AFOs. No overt loss of balance but does have slowed, unsteady gait. Able to ambulate approximately 170 feet with min assist PSYCH: Alert, oriented x1, confused at times, affect flattened, tearful at times. Insight appears intact. - Constitutional Vitals: Vital Signs - 12hr 10/08/19 10/08/19 10/08/19 04:49 08:00 09:27 Temperature 98.4 F 98.1 F Pulse Rate 77 100 H 100 H Respiratory 18 18 Rate Blood Pressure 123/62 126/66 Blood Pressure 126/66 [Left] O2 Sat by Pulse 99 99 Oximetry - Allied health notes Allied health notes reviewed: nursing, PT, OT, social work FIMS assessment as documented by PT/OT/ST: Grooming Patient cleans teeth/dentures: No Patient weeks/brushes hair: No Patient washes, rinses and Yes dries face: Patient washes, rinses and Yes dries hands: Patient shaves: No Grooming FIM Score 3. Moderate Assistance (Patient = 50% or more) Toileting Toileting Device Commode over Toilet Toileting FIM Score 2. Maximal Assistance (Patient = 25% or more) Transfers Mode of Locomotion: Wheelchair Bed/Chair/Wheelchair Transfers 4. Minimal Assistance (Patient = 75% or more. FIM Score Needs touching.) Toilet Transfers FIM Score 4. Minimal Assistance (Patient = 75% or more. Needs touching.) Patient transferred to: Shower Shower Transfers FIM Score 4. Minimal Assistance (Patient = 75% or more. Needs touching.) Eating Eating Device Adapted Utensil Eating FIM Score 3. Moderate Assistance (Patient = 50% or more) Dressing-Upper body Patient retrieves clothing No items: Patient applies/removes UE No prosthesis or orthosis: Upper Body Dressing FIM Score 3. Moderate Assistance (Patient = 50% or more) Dressing-lower body Patient retrieves clothing No items: Patient applies/removes LE No prosthesis or orthosis: Lower Body Dressing FIM Score 2. Maximal Assistance (Patient = 25% or more) - Labs CBC & Chem 7: 10/07/19 07:19 10/07/19 07:19 Labs: Laboratory Results - last 72 hr 10/07/19 10/07/19 07:19 07:19 WBC 7.8 RBC 4.84 Hgb 10.9 L Hct 33.6 L MCV 69 L MCH 23 L MCHC 33 RDW 14.6 Plt Count 353 Sodium 140 Potassium 3.7 Chloride 104.7 Carbon Dioxide 24 Anion Gap 15 BUN 8 L Creatinine 0.6 L Estimated GFR > 60 BUN/Creatinine Ratio 13 Glucose 95 Calcium 8.5 Assessment and Plan Bladder obstruction/BPH/long-term use of suprapubic tube: Maintain suprapubic tube, monitor urine output, maintain Carballo which is capped, alert Dr. Montana for any changes in status. Continue medications, flush every shift with normal saline. Sepsis/urinary tract infection: Continue Rocephin for total of 10 days as per i nfectious disease. Monitor CBC on a regular basis and reconsult infectious disease if condition worsens. Culture positive for Proteus mirabilis. WBCs normalized. Antibiotic completed. Elevated temperature over the weekend on several occasions, continue to monitor PE: Chronic in nature. Continue treatment with Xarelto. Skin breakdown: On scrotum. Wound care consult ordered. Monitor skin, make sure area is kept clean and dry. Hypertension: Continue medications, monitor blood pressure on a regular basis and adjust medications for normotension. Avoid hypotension. Hypokalemia: Resolved with replacement. Magnesium within normal limits. 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 Will need to have family come in for training. Patient is agreeable with utilizing bilateral AFOs. Medium, anterior AFOs [id number] will be ordered. Hyperlipidemia: Continue statin ADL dysfunction: OT will work on improving ability to perform ADLs (including assistive devices) to increase independence and decrease caregiver burden and improve functional transfers and mobility training. Difficulty walking: PT will work on gait training and proper use of assistive de vices and advance as appropriate to use of stairs and outside ambulation on uneven surfaces. Unsteadiness on feet: PT will work on improving static and dynamic sitting and standing balance as well as proper use of assistive devices to decrease risk of falls. Abnormality of gait: PT will work to improve safety and efficiency of gait through neuromotor training and gait training along with instruction on proper use of assistive devices. Muscle weakness: PT & OT will work on strengthening exercises to improve functional strength including mixture of closed and open kinetic chain exercises. Debility: PT & OT will work on improving overall functional status to improve participation with ADLs, mobility and social involvement. Fatigue: PT & OT will work on improving endurance through aerobic exercises and therapeutic activity while monitoring patients tolerance for activity and vital signs as needed. DVT ppx: On Xarelto for PE Pain: Continue physical modalities in therapy and pain medications as needed to achieve functional pain control. Sleep: Monitor and address as needed. Bowel: Monitor and address as needed. Appetite: Monitor and address as needed. Discharge planning: Pending therapy progress and care plan meeting. Will continue discussion with therapy team, SW, patient and family. Plan to discharge on 10/10. Family was able to attend family training and states that he is worse than he was previously before coming to the hospital. All have agreed to stay until in order to boost his ability to utilize stairs in order to gain access to the house. Restrictions/ Precautions: Falls, urinary retention, possible confusion WB status: FWB Functional Hx: ADLs: Likely needed assistance Cognition: Needed assistance Mobility: Rolling walker Barriers to Discharge: Decreased mobility and ability to perform self care, balance deficits, weakness Estimated Length of Stay: 1014 days Discharge Destination: Home with family DME Patient will require a lightweight wheelchair in order to discharge safely home. At this point he is able to ambulate for short distances utilizing a platform walker however due to his bilateral foot drop and bilateral wrist drop he is unable to safely perform his MR ADLs from the walker level. We have attempted and failed to progress him past this. He is able to utilize a light weight wheelchair under his own power and will use it in the home in order to perform his MR ADLs and to be more functional and independent. There are no restrictions with him using this wheelchair. Lightweight wheelchair is required due to his decreased strength in his upper extremities and in order to preserve energy for other functional task. Patient has used a wheelchair while here in the rehab. He will also need a 3 in 1 in order to safely make it to and from the toilet which needs to be elevated for safety purposes.
[2019-10-08] MEDS: TAMSULOSIN 0.4 MG CAP PO SCH (22:31)
[2019-10-09] MEDS: OXYBUTYNIN 5 MG TAB PO SCH ×3 (07:54→21:04)
[2019-10-09] MEDS: RIVAROXABAN 10 MG TAB PO SCH (07:54)
[2019-10-09] MEDS: amLODIPine 10 MG TAB PO SCH (07:54)
--- NOTE | 2019-10-09 09:15 | Progress Note ---
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 Patient is a poor historian. After further work-up he had findings suspicious for possible pneumonia and or COVID. He has a previous suprapubic catheter that apparently was clogged as well. Could not be flushed and urology (Dr. Montana) was consulted for placement of Carballo catheter which remains (plugged). He does have neurogenic bladder and BPH per reports. Per notes the plan is to plug the Carballo and go home with the larger SPT open. Urinalysis showed Proteus Mirabilis infection and infectious disease was consulted. He was placed on Rocephin for total of 10 days unless discharged home at which point he would be converted to Cipro. Due to the blocked suprapubic tube he also developed acute kidney injury and was seen by nephrology as well. Medications were dosed on renal basis. CT abdomen showed moderate to severe bilateral hydronephrosis. Creatinine improved once the obstructive uropathy was cleared. Initial chest x-ray showed that there was a left lower lobe pneumonia (not appreciated by my review of imaging) and further investigation into the possible pneumonia as seen on the CT abdomen pelvis did not capture any pneumonia on the chest images captured. He has a history of a pulmonary embolus and remains on Xarelto. He has signs and symptoms of previous neurological damage including a left facial droop and bilateral wrist and foot drop along with slowed speech and interaction. Records not completely clear on causative nature of these changes. Was able to look back in the historical records going back several years and did see another CT head showed a lacunar infarct. Patient also has sickle cell trait per records. Patient was previously independent and able to take care of himself although his did perform all of the household duties including cooking, driving and cleaning (per record review). There was a brief entry by nursing that the patient was placed on restraints due to pulling at IVs and catheters. This was then discontinued. Late last night just prior to being transferred there is also a nursing note stating that the patient is confused, hallucinating and talking to people who were not there. We will have to monitor the patient closely for his own safety and make sure that we do not need to obtain a sitter or that he has not decompensated to the point where he is unable to participate and make progress with therapy. If it does occur we will move to discharge the patient. Interval History: Patient is participating in therapy and making fair progress. Taking rest breaks as needed. +BM. Denies pain, palpitations, dyspnea, cough, N/V, or joint pain. Making good progress utilizing AFOs and improving his ambulatory distance. Patient observed during physical therapy in the parallel bars performing step ups. Was able to do approximately 10 before he needed to take a break. Needed multiple cues and assistance with attempting to sit back down. Spoke with Dr. Montana who states the patient does have a urology follow-up already scheduled. Bladder obstruction/BPH/long-term use of suprapubic tube: Maintain suprapubic tube, monitor urine output, maintain Carballo which is capped, alert Dr. Montana for changes in status. Continue medications. Will order every shift flushing with 10 to 20 cc normal saline. Hypokalemia: Potassium now normalized. Continue to monitor Dehydration: Improved with gentle IV fluids. BUN now normalized Hypernatremia: Normalized after half-normal saline. Continue to monitor Sepsis/urinary tract infection: Reconsulted ID, appreciate their help. WBCs have finally normalized. Monitor CBC on a regular basis. Culture positive for Proteus mirabilis. Completed antibiotic. CBC within normal limits. Patient did have a slight temperature of 100.3 over the weekend, this happened on several occasions. WBCs have stayed within normal limits. No other signs of infection or return of sepsis. Continue to monitor PE: Continue treatment with Xarelto. 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 Will need to have family come in for training and to see what his baseline is. Seems to be walking better with orthosis and platform walker Hypertension: Continue medications, monitor blood pressure on a regular basis and adjust medications for normotension. Avoid hypotension. Skin breakdown: Patient has skin breakdown on his scrotum and penis. Wound consult ordered. Keep clean dry and monitor for any signs of further breakdown/infection, improved Patient discussed during team conference, making fair progress is actually doing better than he admits for himself. Will continue to benefit over the next couple of days to improve his ability to negotiate steps in order to get in and out of the house. Family is working on getting a wheelchair ramp but it may not be available for a few weeks. Still has decreased endurance and balance. Will look to discharge on with a wheelchair, 3 in 1 and home health. All records, vitals, labs and medications were reviewed. No other issues per patient, nursing or therapy. Objective - Exam Narrative Exam: MUSCULOSKELETAL SPECIALTY EXAM CONSTITUTIONAL: Well developed, well nourished, appropriately groomed EENT: Prosthetic left eye. Hearing intact to soft voice RESPIRATORY: Clear to auscultation bilaterally, no increased work of breathing CARDIOVASCULAR: Regular Rate/ Rhythm, no swelling, edema or tenderness in BUE or BLE. All extremities warm. GI: + bowel sounds, soft, NTTP, nondistended. : Suprapubic tube INTEGUMENTARY: Normal, no lesion, rash, masses or bruising noted in extremities. Skin breakdown on scrotum/penis. MUSCULOSKELETAL: BUE and BLE normal without defect, crepitus, subluxation, effusion, arthritic changes or TTP. Patient does have bilateral wrist drop and foot drop, unable to grasp/make a fist otherwise: BUE 4-/5, decreased ROM (unable to perform shoulder abduction past 90 degrees), with normal tone. BLE 4-/5, decreased ROM, with normal tone NEURO: CN 2-12 grossly intact. Sensation intact in all extremities. No tremor noted in 4 extremities. POSTURE and GAIT: Sitting posture good. Balance okay, dynamic is poor. Patient is ambulating with a platform walker with bilateral AFOs. No overt loss of balance but does have slowed, unsteady gait. Able to ambulate approximately 150 feet with min assist, not safe for unassisted ambulation or for non-skilled assistance. Patient unable to perform MR ADLs from the walker level. PSYCH: Alert, oriented x1, confused at times, affect flattened, tearful at times. Insight appears intact. - Constitutional Vitals: Vital Signs - 12hr 10/08/19 10/09/19 22:29 07:49 Temperature 98.4 F 98.8 F Pulse Rate 79 72 Respiratory 16 18 Rate Blood Pressure 117/59 Blood Pressure 110/57 [Left] O2 Sat by Pulse 99 98 Oximetry - Allied health notes Allied health notes reviewed: nursing, PT, OT FIMS assessment as documented by PT/OT/ST: Grooming Patient cleans teeth/dentures: No Patient weeks/brushes hair: No Patient washes, rinses and Yes dries face: Patient washes, rinses and Yes dries hands: Patient shaves: No Grooming FIM Score 3. Moderate Assistance (Patient = 50% or more) Toileting Toileting Device Commode over Toilet Toileting FIM Score 2. Maximal Assistance (Patient = 25% or more) Transfers Mode of Locomotion: Wheelchair Bed/Chair/Wheelchair Transfers 4. Minimal Assistance (Patient = 75% or more. FIM Score Needs touching.) Toilet Transfers FIM Score 4. Minimal Assistance (Patient = 75% or more. Needs touching.) Patient transferred to: Shower Shower Transfers FIM Score 4. Minimal Assistance (Patient = 75% or more. Needs touching.) Eating Eating Device Adapted Utensil Eating FIM Score 3. Moderate Assistance (Patient = 50% or more) Dressing-Upper body Patient retrieves clothing No items: Patient applies/removes UE No prosthesis or orthosis: Upper Body Dressing FIM Score 3. Moderate Assistance (Patient = 50% or more) Dressing-lower body Patient retrieves clothing No items: Patient applies/removes LE No prosthesis or orthosis: Lower Body Dressing FIM Score 2. Maximal Assistance (Patient = 25% or more) - Labs CBC & Chem 7: 10/07/19 07:19 10/07/19 07:19 Labs: Laboratory Results - last 72 hr 10/07/19 10/07/19 07:19 07:19 WBC 7.8 RBC 4.84 Hgb 10.9 L Hct 33.6 L MCV 69 L MCH 23 L MCHC 33 RDW 14.6 Plt Count 353 Sodium 140 Potassium 3.7 Chloride 104.7 Carbon Dioxide 24 Anion Gap 15 BUN 8 L Creatinine 0.6 L Estimated GFR > 60 BUN/Creatinine Ratio 13 Glucose 95 Calcium 8.5 Assessment and Plan Bladder obstruction/BPH/long-term use of suprapubic tube: Maintain suprapubic tube, monitor urine output, maintain Carballo which is capped, alert Dr. Montana for any changes in status. Will follow-up with urology after discharge, Dr. Montana states patient already has appointment. Continue medications, flush every shift with normal saline. Sepsis/urinary tract infection: Continue Rocephin for total of 10 days as per infectious disease. Monitor CBC on a regular basis and reconsult infectious disease if condition worsens. Culture positive for Proteus mirabilis. WBCs n ormalized. Antibiotic completed. Elevated temperature over the weekend on several occasions, continue to monitor, resolved PE: Chronic in nature. Continue treatment with Xarelto. Skin breakdown: On scrotum. Wound care consult ordered. Monitor skin, make sure area is kept clean and dry. Hypertension: Continue medications, monitor blood pressure on a regular basis and adjust medications for normotension. Avoid hypotension. Hypokalemia: Resolved with replacement. Magnesium within normal limits. 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 Will need to have family come in for training. Patient is agreeable with utilizing bilateral AFOs. Medium, anterior AFOs [id number] will be ordered. Hyperlipidemia: Continue statin ADL dysfunction: OT will work on improving ability to perform ADLs (including assistive devices) to increase independence and decrease caregiver burden and improve functional transfers and mobility training. Difficulty walking: PT will work on gait training and proper use of assistive devices and advance as appropriate to use of stairs and outside ambulation on uneven surfaces. Unsteadiness on feet: PT will work on improving static and dynamic sitting and standing balance as well as proper use of assistive devices to decrease risk of falls. Abnormality of gait: PT will work to improve safety and efficiency of gait through neuromotor training and gait training along with instruction on proper use of assistive devices. Muscle weakness: PT & OT will work on strengthening exercises to improve functional strength including mixture of closed and open kinetic chain exercises. Debility: PT & OT will work on improving overall functional status to improve participation with ADLs, mobility and social involvement. Fatigue: PT & OT will work on improving endurance through aerobic exercises and therapeutic activity while monitoring patients tolerance for activity and vital signs as needed. DVT ppx: On Xarelto for PE Pain: Continue physical modalities in therapy and pain medications as needed to achieve functional pain control. Sleep: Monitor and address as needed. Bowel: Monitor and address as needed. Appetite: Monitor and address as needed. Discharge planning: Pending therapy progress and care plan meeting. Will continue discussion with therapy team, SW, patient and family. Plan to discharge on 10/10. Family was able to attend family training and states that he is worse than he was previously before coming to the hospital. All have agreed to stay until in order to boost his ability to utilize stairs in order to gain access to the house. Restrictions/ Precautions: Falls, urinary retention, possible confusion WB status: FWB Functional Hx: ADLs: Likely needed assistance Cognition: Needed assistance Mobility: Rolling walker Barriers to Discharge: Decreased mobility and ability to perform self care, balance deficits, weakness Estimated Length of Stay: 1014 days Discharge Destination: Home with family DME Patient will require a lightweight wheelchair in order to discharge safely home. At this point he is able to ambulate for short distances utilizing a platform walker however due to his bilateral foot drop and bilateral wrist drop he is unable to safely perform his MR ADLs from the walker level. We have attempted and failed to progress him past this. He is able to utilize a light weight wheelchair under his own power and will use it in the home in order to perform his MR ADLs and to be more functional and independent. There are no restrictions with him using this wheelchair. Lightweight wheelchair is required due to his decreased strength in his upper extremities and in order to preserve energy for other functional task. Patient has used a wheelchair while here in the rehab. He will also need a 3 in 1 in order to safely make it to and from the toilet which needs to be elevated for safety purposes.
[2019-10-09] MEDS: oxyCODONE /ACETAMINOPHEN 5-325MG TAB PO PRN (21:03)
[2019-10-09] MEDS: TAMSULOSIN 0.4 MG CAP PO SCH (21:03)
[2019-10-10 07:33] LABS: Hematocrit 31.6 % (35.5-45.6); Hemoglobin 10.4 gm/dl (11.8-15.2); Mean Corpuscular HGB Conc 33 % (32-34); Platelet Count 369 K/mm3 (140-440); Red Blood Count 4.55 M/mm3 (3.65-5.03); Red Cell Distribution Width 14.5 % (13.2-15.2)
[2019-10-10 07:53] LABS: Blood Urea Nitrogen 10 mg/dL (9-20); Calcium 8.7 mg/dL (8.4-10.2); Hemolysis Index 2
[2019-10-10 07:56] LABS: Mean Corpuscular Volume 69 fl (84-94)
[2019-10-10 07:57] LABS: BUN/Creatinine Ratio 17
[2019-10-10] MEDS: RIVAROXABAN 10 MG TAB PO SCH (08:15)
[2019-10-10] MEDS: OXYBUTYNIN 5 MG TAB PO SCH ×3 (08:15→21:46)
[2019-10-10] MEDS: amLODIPine 10 MG TAB PO SCH (08:19)
--- NOTE | 2019-10-10 11:13 | Progress Note ---
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 Patient is a poor historian. After further work-up he had findings suspicious for possible pneumonia and or COVID. He has a previous suprapubic catheter that apparently was clogged as well. Could not be flushed and urology (Dr. Montana) was consulted for placement of Carballo catheter which remains (plugged). He does have neurogenic bladder and BPH per reports. Per notes the plan is to plug the Carballo and go home with the larger SPT open. Urinalysis showed Proteus Mirabilis infection and infectious disease was consulted. He was placed on Rocephin for total of 10 days unless discharged home at which point he would be converted to Cipro. Due to the blocked suprapubic tube he also developed acute kidney injury and was seen by nephrology as well. Medications were dosed on renal basis. CT abdomen showed moderate to severe bilateral hydronephrosis. Creatinine improved once the obstructive uropathy was cleared. Initial chest x-ray showed that there was a left lower lobe pneumonia (not appreciated by my review of imaging) and further investigation into the possible pneumonia as seen on the CT abdomen pelvis did not capture any pneumonia on the chest images captured. He has a history of a pulmonary embolus and remains on Xarelto. He has signs and symptoms of previous neurological damage including a left facial droop and bilateral wrist and foot drop along with slowed speech and interaction. Records not completely clear on causative nature of these changes. Was able to look back in the historical records going back several years and did see another CT head showed a lacunar infarct. Patient also has sickle cell trait per records. Patient was previously independent and able to take care of himself although his did perform all of the household duties including cooking, driving and cleaning (per record review). There was a brief entry by nursing that the patient was placed on restraints due to pulling at IVs and catheters. This was then discontinued. Late last night just prior to being transferred there is also a nursing note stating that the patient is confused, hallucinating and talking to people who were not there. We will have to monitor the patient closely for his own safety and make sure that we do not need to obtain a sitter or that he has not decompensated to the point where he is unable to participate and make progress with therapy. If it does occur we will move to discharge the patient. Interval History: Patient is participating in therapy and making fair progress. Taking rest breaks as needed. +BM. Denies pain, palpitations, dyspnea, cough, N/V, or joint pain. Making good progress utilizing AFOs and improving his ambulatory distance. Patient observed during physical therapy. Endurance is still lacking. Patient getting emotional about going home. Reminded him that he will be discharging tomorrow. Bladder obstruction/BPH/long-term use of suprapubic tube: Maintain suprapubic tube, monitor urine output, maintain Carballo which is capped, alert Dr. Montana for changes in status. Follow-up with urology after discharge, Appointment already scheduled. Continue medications. Will order every shift flushing with 10 to 20 cc normal saline. Hypokalemia: Potassium decreased again slightly, replace orally. Continue to monitor Dehydration: Improved with gentle IV fluids. BUN now normalized Hypernatremia: Normalized after half-normal saline. Continue to monitor Sepsis/urinary tract infection: Reconsulted ID, appreciate their help. WBCs have finally normalized. Monitor CBC on a regular basis. Culture positive for Proteus mirabilis. Completed antibiotic. CBC within normal limits. Patient did have a slight temperature of 100.3 over the weekend, this happened on several occasions. WBCs have stayed within normal limits. No other signs of infection or return of sepsis. Continue to monitor PE: Continue treatment with Xarelto. 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 Will need to have family come in for training and to see what his baseline is. Seems to be walking better with orthosis and platform walker Hypertension: Continue medications, monitor blood pressure on a regular basis and adjust medications for normotension. Avoid hypotension. Skin breakdown: Patient has skin breakdown on his scrotum and penis. Wound consult ordered. Keep clean dry and monitor for any signs of further breakdown/infection, improved All records, vitals, labs and medications were reviewed. No other issues per p atient, nursing or therapy. Objective - Exam Narrative Exam: MUSCULOSKELETAL SPECIALTY EXAM CONSTITUTIONAL: Well developed, well nourished, appropriately groomed EENT: Prosthetic left eye. Hearing intact to soft voice RESPIRATORY: Clear to auscultation bilaterally, no increased work of breathing CARDIOVASCULAR: Regular Rate/ Rhythm, no swelling, edema or tenderness in BUE or BLE. All extremities warm. GI: + bowel sounds, soft, NTTP, nondistended. : Suprapubic tube INTEGUMENTARY: Normal, no lesion, rash, masses or bruising noted in extremities. Skin breakdown on scrotum/penis, healing MUSCULOSKELETAL: BUE and BLE normal without defect, crepitus, subluxation, effusion, arthritic changes or TTP. Patient does have bilateral wrist drop and foot drop, unable to grasp/make a fist otherwise: BUE 4-/5, decreased ROM (unable to perform shoulder abduction past 90 degrees), with normal tone. BLE 4-/5, decreased ROM, with normal tone NEURO: CN 2-12 grossly intact. Sensation intact in all extremities. No tremor noted in 4 extremities. POSTURE and GAIT: Sitting posture good. Balance okay, dynamic is poor. Patient is ambulating with a platform walker with bilateral AFOs. No overt loss of balance but does have slowed, unsteady gait. Able to ambulate approximately 150 feet with min assist, not safe for unassisted ambulation or for non-skilled assistance. Patient unable to perform MR ADLs from the walker level. PSYCH: Alert, oriented x1, confused at times, affect flattened, tearful at times. Insight appears intact. - Constitutional Vitals: Vital Signs - 12hr 10/10/19 10/10/19 10/10/19 05:25 06:59 08:19 Temperature 98.4 F 97.7 F Pulse Rate 77 73 Respiratory 18 20 Rate Blood Pressure 109/59 108/52 108/52 O2 Sat by Pulse 100 99 Oximetry - Allied health notes Allied health notes reviewed: nursing, PT, OT FIMS assessment as documented by PT/OT/ST: Grooming Patient cleans teeth/dentures: No Patient weeks/brushes hair: No Patient washes, rinses and Yes dries face: Patient washes, rinses and Yes dries hands: Patient shaves: No Grooming FIM Score 3. Moderate Assistance (Patient = 50% or more) Toileting Toileting Device Commode over Toilet Toileting FIM Score 2. Maximal Assistance (Patient = 25% or more) Transfers Mode of Locomotion: Wheelchair Bed/Chair/Wheelchair Transfers 4. Minimal Assistance (Patient = 75% or more. FIM Score Needs touching.) Toilet Transfers FIM Score 4. Minimal Assistance (Patient = 75% or more. Needs touching.) Patient transferred to: Shower Shower Transfers FIM Score 4. Minimal Assistance (Patient = 75% or more. Needs touching.) Eating Eating Device Adapted Utensil Eating FIM Score 3. Moderate Assistance (Patient = 50% or more) Dressing-Upper body Patient retrieves clothing No items: Patient applies/removes UE No prosthesis or orthosis: Upper Body Dressing FIM Score 3. Moderate Assistance (Patient = 50% or more) Dressing-lower body Patient retrieves clothing No items: Patient applies/removes LE No prosthesis or orthosis: Lower Body Dressing FIM Score 2. Maximal Assistance (Patient = 25% or more) - Labs CBC & Chem 7: 10/10/19 06:50 10/10/19 06:50 Labs: Laboratory Results - last 72 hr 10/10/19 10/10/19 06:50 06:50 WBC 5.6 RBC 4.55 Hgb 10.4 L Hct 31.6 L MCV 69 L MCH 23 L MCHC 33 RDW 14.5 Plt Count 369 Sodium 143 Potassium 3.5 L Chloride 107.1 H Carbon Dioxide 24 Anion Gap 15 BUN 10 Creatinine 0.6 L Estimated GFR > 60 BUN/Creatinine Ratio 17 Glucose 90 Calcium 8.7 Assessment and Plan Bladder obstruction/BPH/long-term use of suprapubic tube: Maintain suprapubic tube, monitor urine output, maintain Carballo which is capped, alert Dr. Montana for any changes in status. Will follow-up with urology after discharge, Dr. Montana states patient already has appointment. Continue medications, flush every shift with normal saline. Sepsis/urinary tract infection: Continue Rocephin for total of 10 days as per infectious disease. Monitor CBC on a regular basis and reconsult infectious disease if condition worsens. Culture positive for Proteus mirabilis. WBCs normalized. Antibiotic completed. Temperature normalized now. PE: Chronic in nature. Continue treatment with Xarelto. Skin breakdown: On scrotum. Wound care consult ordered. Monitor skin, make sure area is kept clean and dry. Hypertension: Continue medications, monitor blood pressure on a regular basis and adjust medications for normotension. Avoid hypotension. Hypokalemia: Decreased again, replace. Recheck labs in the morning. 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 Will need to have family come in for training. Patient is agreeable with utilizing bilateral AFOs. Medium, anterior AFOs [id number] will be ordered. Hyperlipidemia: Continue statin ADL dysfunction: OT will work on improving ability to perform ADLs (including assistive devices) to increase independence and decrease caregiver burden and improve functional transfers and mobility training. Difficulty walking: PT will work on gait training and proper use of assistive devices and advance as appropriate to use of stairs and outside ambulation on uneven surfaces. Unsteadiness on feet: PT will work on improving static and dynamic sitting and standing balance as well as proper use of assistive devices to decrease risk of falls. Abnormality of gait: PT will work to improve safety and efficiency of gait through neuromotor training and gait training along with instruction on proper use of assistive devices. Muscle weakness: PT & OT will work on strengthening exercises to improve functional strength including mixture of closed and open kinetic chain exercises. Debility: PT & OT will work on improving overall functional status to improve participation with ADLs, mobility and social involvement. Fatigue: PT & OT will work on improving endurance through aerobic exercises and therapeutic activity while monitoring patients tolerance for activity and vital signs as needed. DVT ppx: On Xarelto for PE Pain: Continue physical modalities in therapy and pain medications as needed to achieve functional pain control. Sleep: Monitor and address as needed. Bowel: Monitor and address as needed. Appetite: Monitor and address as needed. Discharge planning: Pending therapy progress and care plan meeting. Will continue discussion with therapy team, SW, patient and family. Plan to discharge on 10/10. Family was able to attend family training and states that he is worse than he was previously before coming to the hospital. All have agreed to stay until in order to boost his ability to utilize stairs in order to gain access to the house. Restrictions/ Precautions: Falls, urinary retention, possible confusion WB status: FWB Functional Hx: ADLs: Likely needed assistance Cognition: Needed assistance Mobility: Rolling walker Barriers to Discharge: Decreased mobility and ability to perform self care, balance deficits, weakness Estimated Length of Stay: 1014 days Discharge Destination: Home with family DME Patient will require a lightweight wheelchair in order to discharge safely home. At this point he is able to ambulate for short distances utilizing a platform walker however due to his bilateral foot drop and bilateral wrist drop he is unable to safely perform his MR ADLs from the walker level. We have attempted and failed to progress him past this. He is able to utilize a light weight wheelchair under his own power and will use it in the home in order to perform his MR ADLs and to be more functional and independent. There are no restric tions with him using this wheelchair. Lightweight wheelchair is required due to his decreased strength in his upper extremities and in order to preserve energy for other functional task. Patient has used a wheelchair while here in the rehab. He will also need a 3 in 1 in order to safely make it to and from the toilet which needs to be elevated for safety purposes.
[2019-10-10] MEDS: POTASSIUM CHLORIDE ER 20 MEQ TAB PO SCH ×2 (14:31→21:46)
[2019-10-10] MEDS: TAMSULOSIN 0.4 MG CAP PO SCH (21:46)
[2019-10-11 08:25] VITALS: BP 123/61
[2019-10-11] MEDS: amLODIPine 10 MG TAB PO SCH (08:25)
[2019-10-11] MEDS: OXYBUTYNIN 5 MG TAB PO SCH (08:25)
[2019-10-11] MEDS: RIVAROXABAN 10 MG TAB PO SCH (08:25)
[2019-10-11] MEDS: POTASSIUM CHLORIDE ER 20 MEQ TAB PO SCH (08:25)
[2019-10-11 08:34] LABS: Blood Urea Nitrogen 11 mg/dL (9-20); Calcium 8.7 mg/dL (8.4-10.2); Hemolysis Index 2
[2019-10-11 08:52] LABS: BUN/Creatinine Ratio 16
--- NOTE | 2019-10-11 09:22 | Discharge Summary ---
Providers - Providers Date of Admission: 09/27/19 00:00 Date of discharge: 10/11/19 Attending physician: LILA HUMPHRIES III, MD 09/26/19 18:09 Consult to Dietitian/Nutrition [CONS] Routine Physician Instructions: Reason For Exam: Reason for Consult: Diet education 09/26/19 18:10 Occupational Therapy Evaluate and Treat [CONS] Routine Comment: Reason For Exam: ADL dysfunction Physical Therapy Evaluation and Treat [CONS] Routine Comment: Reason For Exam: Mobility Dysfunction 09/26/19 18:16 Consult to Case Management [CONS] Routine Services Needed at Discharge: Home Health Services Notified:: cm notified 09/28/19 09:20 Consult to Physician [CONS] Routine Comment: Consulting Provider: JOSE MEADOWS Physician Instructions: Reason For Exam: UTI - continued cef, WBC/Temp inc'ing 10/03/19 09:00 Consult to Wound/ET Nurse [CONS] Routine Reason For Exam: wound eval, scrotum and penis Primary care physician: LILA CHAMBERLAIN Hospitalization Reason for admission: Debility with bilateral foot and wrist drop Condition: Good Hospital course: 73-year-old male admitted on 09/21/2023 weakness and falling. Patient is a poor historian. After further work-up he had findings suspicious for possible pneumonia and or COVID. He has a previous suprapubic catheter that apparently was clogged as well. Could not be flushed and urology (Dr. Montana) was consulted for placement of Carballo catheter which remains (plugged). He does have neurogenic bladder and BPH per reports. Per notes the plan is to plug the Carballo and go home with the larger SPT open. Urinalysis showed Proteus Mirabilis infection and infectious disease was consulted. He was placed on Rocephin for total of 10 days unless discharged home at which point he would be converted to Cipro. Due to the blocked suprapubic tube he also developed acute kidney injury and was seen by nephrology as well. Medications were dosed on renal basis. CT abdomen showed moderate to severe bilateral hydronephrosis. Creatinine improved once the obstructive uropathy was cleared. Initial chest x-ray showed that there was a left lower lobe pneumonia (not appreciated by my review of imaging) and further investigation into the possible pneumonia as seen on the CT abdomen pelvis did not capture any pneumonia on the chest images captured. He has a history of a pulmonary embolus and remains on Xarelto. He has signs and symptoms of previous neurological damage including a left facial droop and bilateral wrist and foot drop along with slowed speech and interaction. Records not completely clear on causative nature of these changes. Was able to look back in the historical records going back several years and did see another CT h ead showed a lacunar infarct. Patient also has sickle cell trait per records. Patient was previously independent and able to take care of himself although his did perform all of the household duties including cooking, driving and cleaning (per record review). There was a brief entry by nursing that the patient was placed on restraints due to pulling at IVs and catheters. This was then discontinued. Late last night just prior to being transferred there is also a nursing note stating that the patient is confused, hallucinating and talking to people who were not there. We will have to monitor the patient closely for his own safety and make sure that we do not need to obtain a sitter or that he has not decompensated to the point where he is unable to participate and make progress with therapy. If it does occur we will move to discharge the patient. Bladder obstruction/BPH/long-term use of suprapubic tube: Maintain suprapubic tube, monitor urine output, maintain Carballo which is capped, alert Dr. Montana for changes in status. Follow-up with urology after discharge, Appointment already scheduled. Continue medications. Flushing with 10 to 20 cc normal saline daily. Hypokalemia: Potassium was slightly low at the beginning of the patient's stay. Magnesium was checked and was normal. Potassium was replaced and normalized for the majority of his stay until the last day before discharge at which point it was low again. Magnesium again checked and was normal potassium was replaced and normalized the next day. Dehydration: Improved with gentle IV fluids. BUN now normalized Hypernatremia: Normalized after half-normal saline. Continue to monitor Sepsis/urinary tract infection: Reconsulted ID, appreciate their help. WBCs have finally normalized. Monitor CBC on a regular basis. Culture positive for Proteus mirabilis. Completed antibiotic. CBC within normal limits. Patient did have a slight temperature of 100.3 over the weekend prior to his discharge, this happened on several occasions but then returned to normal. WBCs have stayed within normal limits. No other signs of infection. Continue to monitor PE: Continue treatment with Xarelto. Will need to follow-up with outside physician for further adjustment to plan of treatment as needed. 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 Will need to have family come in for training and to see what his baseline is. Seems to be walking better with orthosis and platform walker. Also able to utilize hands slightly better with the wrist splints. Patient has ability to improve function with utilization of orthoses and continued home health OT and PT. Hypertension: Continue medications, monitor blood pressure on a regular basis and adjust medications for normotension. Avoid hypotension. Blood pressure stayed in a normal range during the patient's time with us. Skin breakdown: Patient has skin breakdown on his scrotum and penis. Wound consult ordered. Keep clean dry and monitor for any signs of further breakdown/infection, improved. Anti-fungal powder ordered and can be continued as needed. Disposition: [id number] HOME UNDER HOME [facility] Time spent for discharge: >33mins Core Measure Documentation - Palliative Care Palliative Care/ Comfort Measures: Not Applicable - Core Measures Any of the following diagnoses?: DVT/PE, history only - VTE Discharge Requirements Deep Vein Thrombosis/Pulmonary Embolism Present on Admission: Yes Has pt received <5 days of overlap therapy or INR<2.0: No (Cont on Xarelto for history of PE present on Admission) Anticoagulant overlap therapy prescribed at discharge: No Contraindication No Overlap Therapy order at [place]: Not Indicated Exam - Physical Exam Narrative exam: MUSCULOSKELETAL SPECIALTY EXAM CONSTITUTIONAL: Well developed, well nourished, appropriately groomed EENT: Prosthetic left eye. Hearing intact to soft voice RESPIRATORY: Clear to auscultation bilaterally, no increased work of breathing CARDIOVASCULAR: Regular Rate/ Rhythm, no swelling, edema or tenderness in BUE or BLE. All extremities warm. GI: + bowel sounds, soft, NTTP, nondistended. : Suprapubic tube INTEGUMENTARY: Normal, no lesion, rash, masses or bruising noted in extremities. Skin breakdown on scrotum/penis, healing MUSCULOSKELETAL: BUE and BLE normal without defect, crepitus, subluxation, effusion, arthritic changes or TTP. Patient does have bilateral wrist drop and foot drop, unable to grasp/make a fist otherwise: BUE 4-/5, decreased ROM (unable to perform shoulder abduction past 90 degrees), with normal tone. BLE 4-/5, decreased ROM, with normal tone NEURO: CN 2-12 grossly intact. Sensation intact in all extremities. No tremor noted in 4 extremities. POSTURE and GAIT: Sitting posture good. Balance okay, dynamic is poor. Patient is ambulating with a platform walker with bilateral AFOs. No overt loss of balance but does have slowed, unsteady gait. Able to ambulate approximately 150 feet with min assist, not safe for unassisted ambulation or for non-skilled assistance. Patient unable to perform MR ADLs from the walker level. PSYCH: Alert, oriented x1, confused at times, affect flattened, tearful at times, seems brighter today. Insight appears intact. - Constitutional Vitals: Temp Pulse Resp BP Pulse Ox 98.7 F 87 18 123/61 99 10/11/19 07:25 10/11/19 08:25 10/11/19 07:25 10/11/19 08:25 10/11/19 07:25 Plan Activity: advance as tolerated, up only with assistance, fall precautions Diet: low cholesterol (Heart healthy) Special Instructions: record daily BP diary, physical therapy, occupational therapy, home health RN Durable Medical Equipment Needed Upon Discharge: Wheelchair, Bedside Commode Care Plan Goals: Patient continues to have suprapubic tube as well as a capped Carballo in place per urology. Patient already has a scheduled follow-up with Dr. Montana and should keep this appointment. At that time Dr. Montana may remove the capped Carballo catheter. Patient and should monitor urine output, if there is a decreased output from the suprapubic tube they should seek assistance sooner with Dr. Montana as the tube may be clogged again. We did have an issue while he was on the rehab floor and started flushing the suprapubic tube with 10 mL's of normal saline every shift to alleviate issues with clotting. Home health nursing can assist with this at home. Patient is utilizing bilateral wrist splints to help improve dexterity to a small degree. Have encouraged him to continue working with occupational therapy in order to improve and possibly modify his activities at home in order to decrease caregiver burden and improve his independence and functionality. Although he is walking with a platform walker and bilateral AFOs, he does not have the ability to stand utilizing the walker and perform his MR ADLs. For that reason and for the fact that he is a high fall risk due to the bilateral foot drop and the weakness in his wrist/hands, we are discharging him home with a wheelchair in order to improve his independence and functional status. Also discussed with the patient and his when she was here for family training that they would need to follow-up with his PCP upon discharge. She stated his next follow-up appointment was next year, I suggested that she contact the PCP and let them know that he has recently been discharged from the hospital and to seek a follow-up appointment with a list of his medications and a diary of his daily blood pressure results for follow-up and medication adjustment. Patient is currently on Xarelto for a pre-existing pulmonary embolus. He is a high fall risk. If the patient should develop any tachycardia, dyspnea, tachypnea, painful breathing, hemoptysis, lightheadedness, heart palpitations he should seek help immediately at the nearest ER or call 911. Most recent lab values: CBC performed on 10/09: WBCs 5.6, hemoglobin 10.4, hematocrit 31.6, platelet 369 BMP performed on 10/10: Sodium 143, potassium 3.6, chloride 107.1, carbon oxide 22, BUN 11, creatinine 0.7, glucose 94, calcium 8.7. Magnesium performed on 10/10: 1.9 Follow up with: LILA CHAMBERLAIN JR, MD [Primary Care Provider] - 7 Days ELLA MONTANA MD [Staff Physician] - 7 Days (Maintain scheduled appointment) Prescriptions: AtorvaSTATin 10 mg PO QHS #30 tablet Tamsulosin [Flomax] 0.8 mg PO QHS #60 capsule amLODIPine 10 mg PO QDAY #30 tablet Oxybutynin [Ditropan] 5 mg PO TID #90 tablet Rivaroxaban [Xarelto] 10 mg PO QDAY #30 tablet
== END 2019-10-11 11:50 | disposition home health service (06) | DRG 947 ==
LOC: UNDOADMIN 18:04 → 3A 18:04 → 3B 09-27
PROVIDERS: ADMIT Physical Medicine & Rehabilitation; ATTEND Physical Medicine & Rehabilitation
DX: R53.81 Other malaise (principal); A41.9 Sepsis, unspecified organism; I26.99 Other pulmonary embolism without acute cor pulmonale; E87.0 Hyperosmolality and hypernatremia; N39.0 Urinary tract infection, site not specified; N17.9 Acute kidney failure, unspecified; T83.098D Other mechanical complication of other urinary catheter, subsequent encounter; N40.0 Benign prostatic hyperplasia without lower urinary tract symptoms; I10 Essential (primary) hypertension; Z86.73 Personal history of transient ischemic attack (TIA), and cerebral infarction without residual deficits; E78.5 Hyperlipidemia, unspecified; R26.2 Difficulty in walking, not elsewhere classified; M62.81 Muscle weakness (generalized); E87.6 Hypokalemia; E86.0 Dehydration; Y83.9 Surgical procedure, unspecified as the cause of abnormal reaction of the patient, or of later complication, without mention of misadventure at the time of the procedure; Y92.9 Unspecified place or not applicable
CPT/HCPCS: 36415; 80048; 80053; 83735; 85007; 85025; 85027; 94640; G0378; A9270-GY; J0696; J7030; J7050

== ENCOUNTER 2020-03-11 04:43 | Observation (INO) | payer MEDICARE ==
[2020-03-11] MEDS ORDERED: oxyCODONE /ACETAMINOPHEN 5-325MG TAB PO ONE (05:06)
[2020-03-11 05:29] LABS: Bacteria,Urine 1+ /HPF (Negative); Bilirubin,Urine NEG (Negative); Blood,Urine NEG (Negative); Color,Urine Amber (Yellow); Mucus,Urine FEW /HPF; Triple Phosphate Crystal,Urine 3+; Urobilinogen,Urine < 2.0 mg/dL (<2.0)
[2020-03-11 05:42] LABS: Protein,Urine >500 mg/dL (Negative)
--- NOTE | 2020-03-11 06:11 | Emergency Department Report ---
ED General Adult HPI - General Chief complaint: Urogenital-Male Stated complaint: UNABLE TO URINATE/ABD PAIN Time Seen by Provider: 03/11/20 06:06 Source: patient Mode of arrival: Ambulatory Limitations: Physical Limitation - History of Present Illness Initial comments: This is a 74-year-old gentleman with rehab admission back in September or thereab. He presents to the emergency department with a complaint of "I cannot pee". He has a suprapubic catheter which appears to be clogged. He is a poor historian. He is in some degree of distress. Limited history is available due to that and possibly previous stroke. He is able to tell me that this problem began last night. He does tell me that Dr. Montana's nurse change the catheter 2 weeks ago. The catheter is a 16 Yi. 2019 admission Nephrology: 1. Acute kidney injury: Vasomotor MISA in the setting of hypotension in combination with obstructive uropathy. CT abdomen showed moderate to severe b/l hydronephrosis. Monitor renal function. Continue IV fluids. Creatinine level is improving. Avoid nephrotoxic agents. Meds dosage based on GFR. 2. FEN: Mild hyperkalemia, improved, monitor. Metabolic acidosis, improved. Hypernatremia, encouraged PO fluids, monitor. Replete K. Monitor lytes and volume status. 3. Obstructive Uropathy: S/p Carballo catheter inserted by Urologist. 4. SIRS vs sepsis, POA: Proteus bacteremia. Continue abx. 5. Left LL PNA: Continue abx. COVID-19 test negative. 6. UTI (urinary tract infection): Continue IV Ceftriaxone. Follow Urine culture. 7. Hypotension: Monitor BP. BP is better. 8. Acute metabolic encephalopathy, POA. Continue supportive care. Discharge f/u in 1-2 weeks. ID: Cultures: Urine culture mixed 09/21/2019 blood culture: Proteus mirabilis 09/24/2019 blood culture: no growth A/P: 73-year-old male with BPH, neurogenic bladder, hyperlipidemia, prior CVA, indwelling suprapubic catheter admitted to the hospital with weakness: #Sepsis secondary to Proteus bacteremia, source is urinary tract. Resolved. #Bilateral hydronephrosis secondary to clogged suprapubic catheter: was seen by urology. Urine draining well. #Acute kidney injury: resolved. Recs: Last day of Ceftriaxone today ID will sign off. Please call with questions. Saray Murphy MD, FACP -: Last night, unknown Location: abdomen (Lower abdomen suprapubic) Quality: aching Consistency: constant Improves with: none Worsens with: other (Clogged Carballo) Associated Symptoms: denies other symptoms, shortness of breath (Uncertain) Treatments Prior to Arrival: none - Related Data Previous Rx's Medication Instructions Recorded Last Taken Type AtorvaSTATin 10 mg PO QHS #30 tablet 10/11/19 Unknown Rx Oxybutynin [Ditropan] 5 mg PO TID #90 tablet 10/11/19 Unknown Rx Rivaroxaban [Xarelto] 10 mg PO QDAY #30 tablet 10/11/19 Unknown Rx Tamsulosin [Flomax] 0.8 mg PO QHS #60 capsule 10/11/19 Unknown Rx amLODIPine 10 mg PO QDAY #30 tablet 10/11/19 Unknown Rx Allergies Allergy/AdvReac Type Severity Reaction Status Date / Time No Known Allergies Allergy Verified 03/11/18 15:57 ED Review of Systems ROS: Stated complaint: UNABLE TO URINATE/ABD PAIN Other details as noted in HPI Comment: Unobtainable due to pts medical conditions ED Past Medical Hx - Past Medical History Previous Medical History?: Yes Hx Hypertension: Yes Hx CVA: Yes (right sided weakness) Hx Heart Attack/AMI: No Hx Pulmonary Embolism: Yes Hx Liver Disease: No Hx Renal Disease: No 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) Hx Seizures: No Hx Asthma: No Hx COPD: No Hx HIV: No Additional medical history: BPH - Surgical History Past Surgical History?: Yes Additional Surgical History: subrapubic catheter placement, prosthetic eye (left) - Social History Smoking Status: Former Smoker - Medications Home Medications: Home Medications Medication Instructions Recorded Confirmed Last Taken Type AtorvaSTATin 10 mg PO QHS #30 tablet 10/11/19 Unknown Rx Oxybutynin [Ditropan] 5 mg PO TID #90 tablet 10/11/19 Unknown Rx Rivaroxaban [Xarelto] 10 mg PO QDAY #30 tablet 10/11/19 Unknown Rx Tamsulosin [Flomax] 0.8 mg PO QHS #60 capsule 10/11/19 Unknown Rx amLODIPine 10 mg PO QDAY #30 tablet 09/03/20 Unknown Rx ED Physical Exam - General Limitations: Physical Limitation General appearance: alert, in no apparent distress - Head Head exam: Present: atraumatic, normocephalic - Eye Eye exam: Present: normal appearance. Absent: scleral icterus - ENT ENT exam: Present: mucous membranes moist - Neck Neck exam: Present: normal inspection - Respiratory Respiratory exam: Present: normal lung sounds bilaterally. Absent: respiratory distress - Cardiovascular Cardiovascular Exam: Present: regular rate, normal rhythm. Absent: systolic murmur, diastolic murmur, rubs, gallop - GI/Abdominal GI/Abdominal exam: Present: soft, distended, other (Suprapubic catheter in place. There appears to be cystoscopy megaly. I do not see any overflow from the ostomy site.). Absent: rebound - Rectal Rectal exam: Present: deferred - Extremities Exam Extremities exam: Absent: calf tenderness - Back Exam Back exam: Present: other - Neurological Exam Neurological exam: Present: altered (A bit distraught cannot rule out), other (Old hemiparous) - Psychiatric Psychiatric exam: Present: normal affect, anxious - Skin Skin exam: Present: warm, dry, intact, normal color. Absent: rash ED Course Vital Signs 03/11/20 03/11/20 03/11/20 04:52 05:21 07:21 Temperature 97.7 F 97.9 F Pulse Rate 103 H 84 Respiratory 18 20 16 Rate Blood Pressure 162/76 Blood Pressure 106/59 [Left] O2 Sat by Pulse 99 98 Oximetry - Reevaluation(s) Reevaluation #1: Catheter would not irrigate. Is found to be clogged. We will replace. 03/11/20 06:27 03/11/20 08:20 Discussed with hospitalist. Admit for sepsis, acute pyelonephritis. ED Medical Decision Making - Lab Data Result diagrams: 03/11/20 07:01 03/11/20 07:01 Laboratory Results - last 24 hr 03/11/20 03/11/20 03/11/20 05:12 07:01 07:01 WBC 11.4 H RBC 6.09 H Hgb 14.2 Hct 42.5 MCV 70 L MCH 23 L MCHC 33 RDW 15.6 H Plt Count 203 Lymph % (Auto) 14.1 [place] % (Auto) 6.0 Eos % (Auto) 0.1 Baso % (Auto) 0.4 Lymph # (Auto) 1.6 [place] # (Auto) 0.7 Eos # (Auto) 0.0 Baso # (Auto) 0.0 Seg Neutrophils % 79.4 H Seg Neutrophils # 9.1 H PT 16.4 H INR 1.34 H APTT 32.4 VBG pH Sodium Potassium Chloride Carbon Dioxide Anion Gap BUN Creatinine Estimated GFR BUN/Creatinine Ratio Glucose Lactic Acid Calcium Magnesium Total Bilirubin Direct Bilirubin Indirect Bilirubin AST ALT Alkaline Phosphatase NT-Pro-B Natriuret Pep Total Protein Albumin Albumin/Globulin Ratio Urine Color Carrol Urine Turbidity Turbid Urine pH 9.0 H Ur Specific [place] 1.014 Urine Protein >500 Urine Glucose (UA) Neg Urine Ketones Neg Urine Blood Neg Urine Nitrite Neg Urine Bilirubin Neg Urine Urobilinogen < 2.0 Ur Leukocyte Esterase Sm Urine WBC (Auto) 44.0 H Urine RBC (Auto) 123.0 Urine Bacteria (Auto) 1+ Triple Phos Crystals 3+ Urine Mucus Few 03/11/20 03/11/20 03/11/20 07:01 07:01 07:01 WBC RBC Hgb Hct MCV MCH MCHC RDW Plt Count Lymph % (Auto) [place] % (Auto) Eos % (Auto) Baso % (Auto) Lymph # (Auto) [place] # (Auto) Eos # (Auto) Baso # (Auto) Seg Neutrophils % Seg Neutrophils # PT INR APTT VBG pH 7.534 H Sodium 141 Potassium 3.4 L Chloride 108.9 H Carbon Dioxide 22 Anion Gap 14 BUN 15 Creatinine 0.8 Estimated GFR > 60 BUN/Creatinine Ratio 19 Glucose 127 H Lactic Acid 3.10 H* Calcium 9.5 Magnesium 1.80 Total Bilirubin 0.50 Direct Bilirubin < 0.2 Indirect Bilirubin 0.3 AST 16 ALT 11 Alkaline Phosphatase 81 NT-Pro-B Natriuret Pep 235.0 Total Protein 6.6 Albumin 4.3 Albumin/Globulin Ratio 1.9 Urine Color Urine Turbidity Urine pH Ur Specific [place] Urine Protein Urine Glucose (UA) Urine Ketones Urine Blood Urine Nitrite Urine Bilirubin Urine Urobilinogen Ur Leukocyte Esterase Urine WBC (Auto) Urine RBC (Auto) Urine Bacteria (Auto) Triple Phos Crystals Urine Mucus Critical care attestation.: If time is entered above; I have spent that time in minutes in the direct care of this critically ill patient, excluding procedure time. ED Disposition Clinical Impression: Acute pyelonephritis Sepsis Qualifiers: Sepsis type: sepsis due to unspecified organism Sepsis acute organ dysfunction status: unspecified Qualified Code(s): A41.9 - Sepsis, unspecified organism Disposition: OP ADMIT IP TO THIS HOSP Is pt being admited?: Yes Does the pt Need Aspirin: Yes Condition: Stable Referrals: LINUS COTA MD [Primary Care Provider] - 3-5 Days Time of Disposition: 08:22
[2020-03-11] MEDS ORDERED: SODIUM CHLORIDE 0.9% IRR 500 ML BOTTLE IR ONE (06:17)
[2020-03-11] MEDS ORDERED: LIDOCAINE VISCOUS 2% 15 ML ORAL LIQD PO ONE (06:28)
[2020-03-11 07:09] LABS: Basophils % (Auto) 0.4 % (0.0-1.8); Eosinophils % (Auto) 0.1 % (0.0-4.3); Hematocrit 42.5 % (35.5-45.6); Hemoglobin 14.2 gm/dl (11.8-15.2); Lymphocytes # (Auto) 1.6 K/mm3 (1.2-5.4); Lymphocytes % (Auto) 14.1 % (13.4-35.0); Mean Corpuscular HGB Conc 33 % (32-34); Monocytes # (Auto) 0.7 K/mm3 (0.0-0.8); Platelet Count 203 K/mm3 (140-440); Red Blood Count 6.09 M/mm3 (3.65-5.03); Red Cell Distribution Width 15.6 % (13.2-15.2)
[2020-03-11 07:16] LABS: Mean Corpuscular Volume 70 fl (84-94)
[2020-03-11 07:20] LABS: INR 1.34 (0.87-1.13)
[2020-03-11 07:21] LABS: Partial Thromboplastin Time 32.4 Sec. (24.2-36.6)
[2020-03-11 07:29] LABS: Alanine Aminotransferase 11 units/L (7-56); Albumin 4.3 g/dL (3.9-5); BUN/Creatinine Ratio 19; Blood Urea Nitrogen 15 mg/dL (9-20); Calcium 9.5 mg/dL (8.4-10.2); Hemolysis Index 3
[2020-03-11 07:56] LABS: Bilirubin,Direct < 0.2 mg/dL (0-0.2)
[2020-03-11] MEDS ORDERED: cefTRIAXone/NS 1 GM/50 ML 1 GM/50 ML BAG IV ONE (08:17)
[2020-03-11] MEDS ORDERED: SODIUM CHLORIDE 0.9% 1000 ML 1,000 ML IV ONE (08:17)
[2020-03-11] MEDS ORDERED: ASPIRIN 81 MG TAB CHEW PO ONE (08:22)
--- NOTE | 2020-03-11 08:46 | XRay Report ---
XR chest 1V ap INDICATION / CLINICAL INFORMATION: Difficulty breathing. Shortness of breath. COMPARISON: September 21, 2019 FINDINGS: SUPPORT DEVICES: None. HEART / MEDIASTINUM: No significant abnormality. LUNGS / PLEURA: Lungs are clear. Left lower lung zone scarring. Costophrenic sulci are sharp. No pne umothorax. ADDITIONAL FINDINGS: No significant additional findings. IMPRESSION: 1. No acute findings. Signer Name: Sagar Clifford MD Signed: 03/11/2020 8:42 AM Workstation Name: [id number]
--- NOTE | 2020-03-11 08:52 | Cat Scan Report ---
CT abdomen pelvis wo con INDICATION: abd pain, obstructive uropathy. COMPARISON: September 22, 2019 TECHNIQUE: Abdominal and pelvic CT exam performed. All CT scans at this location are performed using CT dose reduction for ALARA by means of automated exposure control. FINDINGS: CT ABDOMEN and PELVIS: Lung Bases: Left lower lobe scarring. No suspicious abnormality. Liver: No significant abnormality. Biliary: No significant abnormality. Spleen: No significant abnormality. Pancreas: No significant abnormality. Adrenals: No significant abnormality. Kidneys: Cyst in bilateral hydroureteronephrosis. No stones. Lymphatics: No lymphadenopathy. Vasculature: Unchanged IVC filter. 2 atherosclerosis, no aneurysm. Bowel: No significant abnormality. Normal appendix. Pelvis: Suprapubic catheter is present along the anterior aspect of the decompressed bladder. Signifi cantly enlarged prostate is somewhat prior exam. Osseous Structures: No aggressive osseous lesion. Additional Findings: None IMPRESSION: 1. Unchanged significant enlargement of the prostate with a suprapubic catheter located in the decomp ressed bladder. Unchanged moderate bilateral hydroureteronephrosis. These findings are not significan tly changed compared to prior examination. No acute findings. Signer Name: Sagar Clifford MD Signed: 03/11/2020 8:47 AM Workstation Name: [id number]
[2020-03-11] MEDS ORDERED: cefTRIAXone/NS 2 GM/100 ML 2 GM/100 ML BAG IV SCH (22:00)
--- NOTE | 2020-03-12 08:30 | History and Physical Report ---
History of Present Illness Date of examination: 03/11/20 Date of admission: 03/11/20 08:22 Chief complaint: Urinary retention History of present illness: This is a 74-year-old gentleman with rehab admission back in September or . He presents to the emergency department with a complaint of "I cannot pee". He has a suprapubic catheter which appears to be clogged. He is a poor historian. He is in some degree of distress. Limited history is available due to that and possibly previous stroke. He is able to tell me that this problem began last night. He does tell me that Dr. [place]'s nurse change the catheter 2 weeks ago. The catheter is a 16 [place]. - Past Medical History Previous Medical History?: Yes Hx Hypertension: Yes Hx CVA: Yes (right sided weakness) Hx Pulmonary Embolism: Yes 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) Additional medical history: BPH - Surgical History Past Surgical History?: Yes Additional Surgical History: subrapubic catheter placement, prosthetic eye (left) - Social History Smoking Status: Former Smoker - Medications Home Medications: Home Medications Medication Instructions Recorded Confirmed Last Taken Type AtorvaSTATin 10 mg PO QHS #30 tablet 10/11/19 Unknown Rx Oxybutynin [Ditropan] 5 mg PO TID #90 tablet 10/11/19 Unknown Rx Rivaroxaban [Xarelto] 10 mg PO QDAY #30 tablet 10/11/19 Unknown Rx Tamsulosin [Flomax] 0.8 mg PO QHS #60 capsule 10/11/19 Unknown Rx amLODIPine 10 mg PO QDAY #30 tablet 10/11/19 Unknown Rx Review of Systems ROS: Stated complaint: UNABLE TO URINATE/ABD PAIN Other details as noted in HPI Comment: Unobtainable due to pts medical conditions Medications and Allergies Allergies Allergy/AdvReac Type Severity Reaction Status Date / Time No Known Allergies Allergy Verified 03/11/18 15:57 Home Medications Medication Instructions Recorded Confirmed Last Taken Type AtorvaSTATin 10 mg PO QHS #30 tablet 10/11/19 03/11/20 Unknown Rx Oxybutynin [Ditropan] 5 mg PO TID #90 tablet 20 03/11/20 Unknown Rx Rivaroxaban [Xarelto] 10 mg PO QDAY #30 tablet 10/11/19 03/11/20 Unknown Rx Tamsulosin [Flomax] 0.8 mg PO QHS #60 capsule 10/11/19 03/11/20 Unknown Rx amLODIPine 10 mg PO QDAY #30 tablet 10/11/19 03/11/20 Unknown Rx Active Meds: Active Medications Ceftriaxone Sodium (Rocephin/Ns 2 Gm/100 Ml) 2 gm in 100 mls @ 200 mls/hr IV Q24H [facility]; Protocol Last Admin: 03/11/20 21:51 Dose: 200 mls/hr Documented by: Exam - Constitutional Vitals: Temp Pulse Resp BP Pulse Ox 98.1 F 56 L 16 115/61 97 03/12/20 04:01 03/12/20 04:01 03/12/20 04:01 03/12/20 04:01 03/12/20 04:01 General appearance: Present: no acute distress, well-nourished - EENT Eyes: Present: PERRL ENT: hearing intact, clear oral mucosa - Neck Neck: Present: supple, normal ROM - Respiratory Respiratory effort: normal Respiratory: bilateral: CTA - Cardiovascular Heart Sounds: Present: S1 & S2. Absent: rub, click - Extremities Extremities: pulses symmetrical, No edema Peripheral Pulses: within normal limits - Abdominal General gastrointestinal: Present: soft, non-tender, non-distended, normal bowel sounds Male genitourinary: Present: normal - Integumentary Integumentary: Present: clear, warm, dry - Musculoskeletal Musculoskeletal: gait normal, strength equal bilaterally - Psychiatric Psychiatric: appropriate mood/affect, intact judgment & insight - Neurologic Neurologic: CNII-XII intact, moves all extremities Results - Labs CBC & Chem 7: 03/11/20 07:01 03/11/20 07:01 Labs: Laboratory Last Values WBC 11.4 K/mm3 (4.5-11.0) H 03/11/20 07:01 RBC 6.09 M/mm3 (3.65-5.03) H 03/11/20 07:01 Hgb 14.2 gm/dl (11.8-15.2) 03/11/20 07:01 Hct 42.5 % (35.5-45.6) 03/11/20 07:01 MCV 70 fl (84-94) L 03/11/20 07:01 MCH 23 pg (28-32) L 03/11/20 07:01 MCHC 33 % (32-34) 03/11/20 07:01 RDW 15.6 % (13.2-15.2) H 03/11/20 07:01 Plt Count 203 K/mm3 (140-440) 03/11/20 07:01 Lymph % (Auto) 14.1 % (13.4-35.0) 03/11/20 07:01 [place] % (Auto) 6.0 % (0.0-7.3) 03/11/20 07:01 Eos % (Auto) 0.1 % (0.0-4.3) 03/11/20 07:01 Baso % (Auto) 0.4 % (0.0-1.8) 03/11/20 07:01 Lymph # (Auto) 1.6 K/mm3 (1.2-5.4) 03/11/20 07:01 [place] # (Auto) 0.7 K/mm3 (0.0-0.8) 03/11/20 07:01 Eos # (Auto) 0.0 K/mm3 (0.0-0.4) 03/11/20 07:01 Baso # (Auto) 0.0 K/mm3 (0.0-0.1) 03/11/20 07:01 Seg Neutrophils % 79.4 % (40.0-70.0) H 03/11/20 07:01 Seg Neutrophils # 9.1 K/mm3 (1.8-7.7) H 03/11/20 07:01 PT 16.4 Sec. (12.2-14.9) H 03/11/20 07:01 INR 1.34 (0.87-1.13) H 03/11/20 07:01 APTT 32.4 Sec. (24.2-36.6) 03/11/20 07:01 VBG pH 7.534 (7.320-7.420) H 03/11/20 07:01 Sodium 141 mmol/L (137-145) 03/11/20 07:01 Potassium 3.4 mmol/L (3.6-5.0) L 03/11/20 07:01 Chloride 108.9 mmol/L (98-107) H 03/11/20 07:01 Carbon Dioxide 22 mmol/L (22-30) 03/11/20 07:01 Anion Gap 14 mmol/L 03/11/20 07:01 BUN 15 mg/dL (9-20) 03/11/20 07:01 Creatinine 0.8 mg/dL (0.8-1.3) 03/11/20 07:01 Estimated GFR > 60 ml/min 03/11/20 07:01 BUN/Creatinine Ratio 19 % 03/11/20 07:01 Glucose 127 mg/dL (75-100) H 03/11/20 07:01 Lactic Acid 3.10 mmol/L (0.7-2.0) H* 03/11/20 07:01 Calcium 9.5 mg/dL (8.4-10.2) 03/11/20 07:01 Magnesium 1.80 mg/dL (1.7-2.3) 03/11/20 07:01 Total Bilirubin 0.50 mg/dL (0.1-1.2) 03/11/20 07:01 Direct Bilirubin < 0.2 mg/dL (0-0.2) 03/11/20 07:01 Indirect Bilirubin 0.3 mg/dL 03/11/20 07:01 AST 16 units/L (5-40) 03/11/20 07:01 ALT 11 units/L (7-56) 03/11/20 07:01 Alkaline Phosphatase 81 units/L (35-129) 03/11/20 07:01 NT-Pro-B Natriuret Pep 235.0 pg/mL (0-900) 03/11/20 07:01 Total Protein 6.6 g/dL (6.3-8.2) 03/11/20 07:01 Albumin 4.3 g/dL (3.9-5) 03/11/20 07:01 Albumin/Globulin Ratio 1.9 % 03/11/20 07:01 Urine Color [place] (Yellow) 03/11/20 05:12 Urine Turbidity Turbid (Clear) 03/11/20 05:12 Urine pH 9.0 (5.0-7.0) H 03/11/20 05:12 Ur Specific [place] 1.014 (1.003-1.030) 03/11/20 05:12 Urine Protein >500 mg/dL (Negative) 03/11/20 05:12 Urine Glucose (UA) Neg mg/dL (Negative) 03/11/20 05:12 Urine Ketones Neg mg/dL (Negative) 03/11/20 05:12 Urine Blood Neg (Negative) 03/11/20 05:12 Urine Nitrite Neg (Negative) 03/11/20 05:12 Urine Bilirubin Neg (Negative) 03/11/20 05:12 Urine Urobilinogen < 2.0 mg/dL (<2.0) 03/11/20 05:12 Ur Leukocyte Esterase Sm (Negative) 03/11/20 05:12 Urine WBC (Auto) 44.0 /HPF (0.0-6.0) H 03/11/20 05:12 Urine RBC (Auto) 123.0 /HPF (0.0-6.0) 03/11/20 05:12 Urine Bacteria (Auto) 1+ /HPF (Negative) 03/11/20 05:12 Triple Phos Crystals 3+ 03/11/20 05:12 Urine Mucus Few /HPF 03/11/20 05:12 Microbiology: Microbiology 03/11/20 07:01 Peripheral/Venous Blood Culture - Preliminary NO GROWTH AFTER 24 HOURS 03/11/20 07:01 Peripheral/Venous Blood Culture - Preliminary NO GROWTH AFTER 24 HOURS [place]/IV: Voiding Method Suprapubic catheter IV Catheter Type [Right INT / Saline Lock Forearm] Assessment and Plan Advance Directives: Yes - Patient Problems (1) Urinary retention Current Visit: No Status: Acute (2) UTI (urinary tract infection) Current Visit: Yes Status: Acute (3) DVT prophylaxis Current Visit: No Status: Acute (4) BPH (benign prostatic hypertrophy) Current Visit: No Status: Chronic Qualifiers: Lower urinary tract symptom presence: symptoms present Lower urinary tract symptom detail: urinary retention Qualified Code(s): N40.1 - Benign prostatic hyperplasia with lower urinary tract symptoms; R33.8 - Other retention of urine (5) Hyperlipidemia Current Visit: No Status: Chronic Qualifiers: Hyperlipidemia type: mixed hyperlipidemia Qualified Code(s): E78.2 - Mixed hyperlipidemia (6) Hypertension Current Visit: No Status: Chronic Qualifiers: Hypertension type: essential hypertension Qualified Code(s): I10 - Essential (primary) hypertension (7) DVT prophylaxis Current Visit: Yes Status: Acute
[2020-03-12 09:33] LABS: Basophils % (Auto) 0.3 % (0.0-1.8); Eosinophils # (Auto) 0.3 K/mm3 (0.0-0.4); Eosinophils % (Auto) 2.8 % (0.0-4.3); Hematocrit 38.5 % (35.5-45.6); Hemoglobin 12.5 gm/dl (11.8-15.2); Lymphocytes # (Auto) 4.1 K/mm3 (1.2-5.4); Lymphocytes % (Auto) 45.1 % (13.4-35.0); Mean Corpuscular HGB Conc 32 % (32-34); Mean Corpuscular Volume 71 fl (84-94); Monocytes # (Auto) 0.7 K/mm3 (0.0-0.8); Monocytes % (Auto) 7.3 % (0.0-7.3); Platelet Count 214 K/mm3 (140-440); Red Blood Count 5.46 M/mm3 (3.65-5.03); Red Cell Distribution Width 16.1 % (13.2-15.2)
[2020-03-12 09:56] LABS: Alanine Aminotransferase 11 units/L (7-56); Albumin 3.6 g/dL (3.9-5); Blood Urea Nitrogen 12 mg/dL (9-20); Calcium 8.7 mg/dL (8.4-10.2); Hemolysis Index 3
[2020-03-12 10:02] LABS: BUN/Creatinine Ratio 17
--- NOTE | 2020-03-12 18:17 | Discharge Summary ---
Providers - Providers Date of Admission: 03/11/20 08:22 Date of discharge: 03/12/20 Attending physician: BRITTANY LEIJA Primary care physician: LINUS DONNELLY MD Hospitalization Condition: Stable Disposition: DC-01 TO HOME OR SELFCARE - Discharge Diagnoses (1) Urinary retention Status: Acute (2) UTI (urinary tract infection) Status: Acute (3) DVT prophylaxis Status: Acute (4) BPH (benign prostatic hypertrophy) Status: Chronic Qualifiers: Lower urinary tract symptom presence: symptoms present Lower urinary tract symptom detail: urinary retention Qualified Code(s): N40.1 - Benign prostatic hyperplasia with lower urinary tract symptoms; R33.8 - Other retention of urine (5) Hyperlipidemia Status: Chronic Qualifiers: Hyperlipidemia type: mixed hyperlipidemia Qualified Code(s): E78.2 - Mixed hyperlipidemia (6) Hypertension Status: Chronic Qualifiers: Hypertension type: essential hypertension Qualified Code(s): I10 - Essential (primary) hypertension (7) DVT prophylaxis Status: Acute Exam - Constitutional Vitals: Temp Pulse Resp BP Pulse Ox 97.4 F L 97 H 18 158/80 99 03/12/20 12:52 03/12/20 12:52 03/12/20 12:52 03/12/20 12:52 03/12/20 12:52 Plan Follow up with: LINUS COTA MD [Primary Care Provider] - 3-5 Days
[2020-03-12 18:58] VITALS: BP 136/70
== END 2020-03-12 19:15 | disposition home or self-care (01) ==
LOC: ED 04:43 → 4A 08:22
PROVIDERS: ADMIT Internal Medicine; ATTEND Internal Medicine
DX: A41.9 Sepsis, unspecified organism (principal); N10 Acute pyelonephritis; R33.9 Retention of urine, unspecified; N40.0 Benign prostatic hyperplasia without lower urinary tract symptoms; I10 Essential (primary) hypertension; E78.2 Mixed hyperlipidemia; N39.0 Urinary tract infection, site not specified; Z86.73 Personal history of transient ischemic attack (TIA), and cerebral infarction without residual deficits; Z87.891 Personal history of nicotine dependence; Z98.890 Other specified postprocedural states; Z79.899 Other long term (current) drug therapy
CPT/HCPCS: 36415; 71045; 74176; 80048; 80053; 80076; 81001; 82140; 82805; 83735; 83880; 85025; 85610; 85730; 87040; 87086; 93005; 96365; 96366; 99285; G0378; J0696; J7030